=== PATIENT | female | born 1990 | race Caucasian/White ===

== ENCOUNTER 2020-05-18 14:19 | Day surgery (SDC) | payer MEDICAID, SELFPAY ==
[2020-05-18] VITALS (14 sets, daily range): BP systolic 107–127; BP diastolic 66–80; PULSE 67–95; RESP 14–18; TEMP 36.4–43; O2SAT 96–100; BMI 21.8
--- NOTE | 2020-05-18 14:22 | HMH.EDGENADL ---
ED Disposition Clinical Impression: Acute appendicitis Qualifiers: Acute appendicitis type: unspecified acute appendicitis type Qualified Code(s): K35.80 - Unspecified acute appendicitis Disposition: Admitted As Inpatient Condition on Discharge: Fair Referrals: Yun Wong PA [Primary Care Provider] - - Critical Care Critical Care Time: No Attestation: On , the high probability of a clinically significant, sudden or life threatening deterioration of the following system(s) required my full and direct attention, intervention and personal management. The time I documented below is in addition to time spent performing reported procedures but includes the following listed in this critical care notation. Medical Decision Making - Medical Records Medical records reviewed: Yes: I reviewed the patient's medical records. - Roman Inquiry Pt receiving controlled substance: No Vital Signs: 05/18/20 14:49 05/18/20 15:50 Temperature 98.2 F Temperature Source Oral Pulse Rate [Right Brachial] 67 79 Respiratory Rate 16 16 Blood Pressure [Right Arm] 116/77 110/66 Blood Pressure Mean [Right Arm] 90 80 Blood Pressure Source [Right Arm] Automatic Cuff Automatic Cuff Blood Pressure Position [Right Arm] Sitting Sitting 02 Sat by Pulse Oximetry 96 99 Oxygen Delivery Method Room Air - Lab Data Lab Results 05/18/20 14:30: Urine Color Yellow, Urine Appearance Sl cloudy, Urine pH 6.0, Ur Specific Thornwood >= 1.030, Urine Protein Negative, Urine Glucose (UA) Negative, Urine Ketones Negative, Urine Blood Negative, Urine Nitrate Negative, Urine Bilirubin Negative, Urine Urobilinogen 0.2, Ur Leukocyte Esterase Negative, Urine RBC Occasional, Urine WBC 3-5, Ur Squamous Epith Cells 10-20, Urine Bacteria 1+ 05/18/20 14:30: Urine HCG, Qual Negative 05/18/20 15:00: WBC 11.6 H, RBC 4.08 L, Hgb 12.6, Hct 38.8, MCV 95.0, MCH 30.9, MCHC 32.5, RDW 12.9, Plt Count 266, MPV 7.6, Neut % (Auto) 85.7 H, Lymph % (Auto) 8.8 L, Gonzales % (Auto) 4.5, Eos % (Auto) 0.8, Baso % (Auto) 0.2, Neut # (Auto) 10.0 H, Lymph # (Auto) 1.0, Gonzales # (Auto) 0.5, Eos # (Auto) 0.1, Baso # (Auto) 0.0, Total Counted 100, Neutrophils % (Manual) 90 H, Lymphocytes % (Manual) 7 L, Monocytes % (Manual) 3, Platelet Estimate Normal, RBC Morphology Normal 05/18/20 15:00: Sodium 139, Potassium 3.7, Chloride 108 H, Carbon Dioxide 25, Anion Gap 9.7, BUN 8, Creatinine 0.60, Estimated Creat Clear 131, Estimated GFR 119, Est GFR ( Amer) 144, Glucose 96, Calcium 9.0, Total Bilirubin 0.4, AST 17, ALT 12, Alkaline Phosphatase 78, C-Reactive Protein 5.8 H, Total Protein 6.8, Albumin 4.3, Globulin 2.5, Albumin/Globulin Ratio 1.7, Lipase 45 Result diagrams: 05/18/20 15:00 05/18/20 15:00 Orders (Tests/Meds): ED MEDICATIONS Discontinued Medications Generic Name Dose Route Start Last Admin Trade Name Freq PRN Reason Stop Dose Admin Ioversol 75 ml 05/18/20 15:22 05/18/20 15:24 Ioversol-350 (74%) 100ml Vial IV 05/18/20 15:23 75 ml ONCE ONE Administration Protocol Sodium Chloride 10 ml 05/18/20 15:22 05/18/20 15:24 Sodium Chloride 0.9% 10ml Syr (Rad Only) IV 05/18/20 15:23 10 ml ONCE ONE Administration Medical Decision Narrative: Patient is a 30-year-old female presenting with abdominal pain. Patient states this pain is different than the pain she is had with her endometriosis in the past. She had a normal last menstrual cycle just several days ago. At this time, differential diagnosis does include acute surgical process such as appendicitis versus kidney stone versus endometriosis versus hernia versus pyelonephritis. No hernias appreciated on exam. It is concerning the patient had a CT scan demonstrated what sounds like a dilated appendix earlier today. Lab work per patient was normal. At this time, shared decision making with patient about PT CT imaging performed and patient wishes to proceed with a CT understanding the radiation risk. I ag
--- NOTE | 2020-05-18 14:36 | PC.NURSE ---
Rad aware of orders
[2020-05-18 14:49] LABS: Microscopic, Urine URINE MICROSCOPIC (MICROSCOPIC)
[2020-05-18 14:51] LABS: Appearance,Urine SL CLOUDY (Clear); Blood, Urine Negative (Negative); Color,Urine YELLOW (Yellow); Glucose,Urine (UA) Negative (Negative); Ketones,Urine Negative (Negative); Leukocyte Esterase,Urine Negative (Negative); Nitrate,Urine Negative (Negative); Protein,Urine Negative (Negative); Specific Gravity, Urine >= 1.030 (1.005-1.030); Urobilinogen,Urine 0.2 EU/dl (0.2)
[2020-05-18 14:52] LABS: Urine Pregnancy, HCG Qual. Negative (Negative)
[2020-05-18 14:54] LABS: Bilirubin,Urine Negative (Negative)
--- NOTE | 2020-05-18 14:55 | PC.NURSE ---
rad notified of ct order on pt
[2020-05-18 15:01] LABS: Bacteria,Urine 1+ /lpf; RBC,Urine Occasional #/hpf (0-3)
--- NOTE | 2020-05-18 15:01 | CT_ITS ---
PROCEDURE: CT ABDOMEN PELVIS W CON CLINICAL INDICATION: abd pain Right lower quadrant pain COMPARISON: No exams were available for comparison TECHNIQUE: IV Contrast: 75ML OPTIRAY 350 Oral Contrast None Axial images obtained with sagittal and coronal reformats. All CT scans at the facility use one or more dose reduction, viz: automated exposure control, ma/kV adjustment per patient size (including targeted exams where dose is matched to indication, i.e. head), or iterative reconstruction technique. FINDINGS: There is a triangular shaped parenchymal opacity in the left major fissure inferiorly measuring approximately 1.5 x 1 cm possibly due to an area of scarring. This is incompletely imaged. Follow-up may confirm stability. The liver, spleen, adrenal glands, pancreas, and kidneys have an unremarkable appearance. No renal or ureteral calculi. No hydronephrosis. The appendix is thickened measuring 10 mm with mild thickening of the wall and mild stranding of the periappendiceal fat consistent with acute appendicitis. No abscess or free air is evident. There are bilateral ovarian cysts measuring up to 2 cm on the left. The uterus is somewhat prominent with heterogeneous enhancement. The uterus is anteflexed. There is a small amount of fluid in the cul-de-sac. No acute bony findings are evident. IMPRESSION: 1. The findings are compatible with acute appendicitis. No evidence of abscess or perforation. 2. Prominent anteverted pelvis with heterogeneous enhancement. Please correlate with physical exam and patient history. Has the patient had recent childbirth? Small amount of fluid is present in the cul-de-sac and there are bilateral ovarian cysts. 3. 1.5 cm parenchymal opacity overlying the left major fissure possibly due to scarring or an area of consolidation. Dictated by: Justin Sandoval MD 05/18/2020 15:52 Justin Sandoval MD in OV 05/18/2020 15:52
[2020-05-18 15:17] LABS: Basophils % 0.2 % (0.1-2.0); Eosinophils # 0.1 K/mm3 (0.0-0.4); Eosinophils % 0.8 % (0.1-12.0); Hematocrit 38.8 % (37.0-47.0); Hemoglobin 12.6 g/dL (12.2-16.2); Lymphocytes % 8.8 % (10-50); Mean Corpuscular HGB Conc 32.5 g/dL (31.8-35.4); Mean Corpuscular Hemoglobin 30.9 pg (27.0-31.2); Mean Platelet Volume 7.6 fl (7.4-10.4); Monocytes # 0.5 K/mm3 (0.1-1.0); Monocytes % 4.5 % (1.7-9.3); Neutrophils % 85.7 % (37.0-80.0); Platelet Count 266 K/mm3 (142-424); Red Blood Count 4.08 M/mm3 (4.20-5.40); Red Cell Distribution Width 12.9 % (11.5-17.5); White Blood Count 11.6 K/mm3 (4.8-10.8)
[2020-05-18 15:19] LABS: Chloride 108 mmol/L (98-107); Potassium 3.7 mmoL/L (3.5-5.1); Sodium 139 mmol/L (136-145)
[2020-05-18 15:21] LABS: Alanine Aminotransferase 12 U/L (12-78); Aspartate Amino Transferase 17 U/L (14-36); Blood Urea Nitrogen 8 mg/dl (7-17); Creatinine Clearance Estimated 131 mL/min (50-200); Estimated Glomerular Filt Rate 119 ml/min (>60); GFR (African American) 144 ML/MIN (>60)
[2020-05-18 15:22] LABS: Albumin Level 4.3 g/dl (3.5-5.0); Albumin/Globulin Ratio 1.7 (1.1-1.8); Alkaline Phosphatase 78 U/L (38-126); Anion Gap 9.7 mEq/L (5-15); Bilirubin,Total 0.4 mg/dl (0.2-1.3); Carbon Dioxide 25 mmol/L (22.0-30.0); Globulin 2.5 g/dL (1.3-3.2); Glucose 96 mg/dl (74-100); Lipase 45 U/L (23-300); Total Protein,Serum 6.8 g/dl (6.3-8.2)
--- NOTE | 2020-05-18 15:25 | PC.NURSE ---
pt with rad
[2020-05-18 15:27] LABS: C-Reactive Protein 5.8 mg/L (0-4)
[2020-05-18 15:39] LABS: MANUAL DIFFERENTIAL MANUAL DIFFERENTIAL (MANUAL DIFF)
[2020-05-18 15:41] LABS: Lymphocytes % 7 % (10-50); Monocytes % 3 % (2-9); Neutrophils % 90 % (42-76); Platelet Estimate Normal; RBC Morphology Normal; Total Cells Counted 100
--- NOTE | 2020-05-18 15:50 | PC.NURSE ---
talking with radiologist at this time
--- NOTE | 2020-05-18 15:56 | PC.NURSE ---
Called Dr Bay's office, spoke with BJ she said she would have Dr Bay called the ED.
--- NOTE | 2020-05-18 15:59 | PC.NURSE ---
Dr Bay speaking to ER at this time.
--- NOTE | 2020-05-18 16:02 | PC.NURSE ---
House aware of pt going to surgery.
[2020-05-18 16:49] LABS: Coronavirus 19 IgG Antibody Negative (Negative); Coronavirus 19 IgM Antibody Negative (Negative)
--- NOTE | 2020-05-18 17:57 | SUR.OPER ---
1757-family updated at this time
--- NOTE | 2020-05-18 18:23 | HMH.OPNOTE ---
Date of procedure: 05/18/20 Pre-op Diagnosis:: Acute appendicitis Post-op Diagnosis:: Acute appendicitis with focal suppurative changes Procedure performed:: Laparoscopic appendectomy Surgeon:: Seven Bay MD NURSING HOME ADMISSIONS DIRECTOR:: Oskar Marks Anesthesia: GETMiah Estimated blood loss (mL): 10 Operative findings:: Focal separative changes along mid appendix No sign of perforation Cloudy fluid within pelvis with no evidence of true abscess formation Operative note:: After informed consent was obtained the patient was taken to the operating room and placed in the supine position. General anesthesia was induced and her abdomen was prepped and draped in a sterile fashion. After infiltration local anesthetic an infraumbilical incision was made. A Veress needle was placed in position. The abdomen was insufflated. A 12 mm optical trocar was placed in position. Under direct visualization a 5 mm trocar was placed in the suprapubic position and an additional 5 mm trocar was placed in the left lower quadrant. Evaluation of the right lower quadrant revealed an inflamed appendix with focal suppurative changes along the midportion. Deep within the pelvis and and around the area of the uterus some cloudy fluid was noted. This fluid was evacuated. Thorough irrigation was completed. No definitive formed abscess was noted. The appendix was carefully elevated. Focal separative changes were noted along the mid appendix. No sign of perforation was seen. The mesoappendix was taken down with harmonic benjamín. An Endopath 45 stapling device was utilized to transect the appendix at its base. The staple margin appeared intact. No sign of bleeding or other complication noted. The appendix was placed in a retrieval bag and removed through the infraumbilical trocar site. The right lower quadrant was thoroughly irrigated. No active bleeding, sign of injury, or additional pockets of fluid were noted. Pneumoperitoneum was released as the trocars were removed. All wounds were irrigated. Fascia at the infraumbilical trocar site was reapproximated with 0 Ethibond and skin was then closed with 4-0 Monocryl in a subcuticular manner. Steri-Strips were applied. The patient's anesthetic agents were reversed and she was extubated prior to transfer to recovery. Condition: stable Disposition: PACU Specimens:: Appendix Complications:: No immediate
--- NOTE | 2020-05-18 18:28 | P.PN_ITS ---
[facility] Anesthesia Checklist - Patient Identification Patient Identification: Arm Band - Structural Data Admitted From: Emergency Dept Planned Operative Procedure/s: Laparoscopic Appendectomy Consent for Planned Operative Procedure(s) Verified: Yes Verified Documents: Surgical Consent, History and Physical - NPO Status Verified Time NPO: 09:00 - Additional verifications Anesthesia Reactions: No Hx Blood Transfusions: No - Airway Assessment C-Spine Mobility Assessed: Yes (mp2) TMJ Mobility Assessed: Yes Dentition: Good Dentition - Neurological Assessment Level of Consciousness: Awake, Alert - Anesthesia Plan Anesthesia Risk discussed: Yes Anesthesia Plan: Verified ASA Class: II (e) Anesthesia Type: General [facility] History I have reviewed the patient's past medical history: Yes Medical History: Reports:: Migraine Denies:: Diabetes Mellitus Type 1, Diabetes Mellitus Type 2, Seizures *Have you ever received a pneumonia vaccine?: No *Have you received a flu vaccine this season?: No Anesthesia experience/problems:: nac Other Surgeries: Yes: Dilation and Curettage, Diagnostic Lap Amputation: No Fractures: Yes - *Social History Smoking Status: Current every day smoker Tobacco Type: cigarettes # Packs/Day (cigarettes): 1 Alcohol Intake: never Substance Use Type: denies use *Occupational Status:: other *Travel in the last 8 weeks: None Family Hx:: No significant family history
--- NOTE | 2020-05-18 18:29 | HMH.ANESI ---
[facility] Anesthesia Record Part I Intake, IV Amount: 1,200 Estimated blood loss (mL): 10 Urine output (mL): 100 Blood Pressure: 121/69 SaO2: 99 Pulse Rate: 95 Respiratory Rate: 16 Temperature: 97.8 F Patient is:: Drowsy, Stable Stable to PACU at:: 18:20
--- NOTE | 2020-05-18 19:09 | PC.NURSE ---
1851-pt tranferred to post op at this time, vss, family at bedside, pt stable
--- NOTE | 2020-05-18 19:46 | HMH.ANESII ---
[facility] Anesthesia Record Part II Discharge Time: 18:50 Destination: Surgical Day Care (OP Surgery) PACU nurse assessment reviewed?: Yes Patient Condition:: Good Anesthesia Complications:: None Swallowing reflex intact?: Yes Cyanosis?: No Blood Pressure: 120/71 Pulse Rate: 85 Temperature: 97.6 F Mental Status: Alert & Oriented Pain level:: 0 Nausea and/or vomitting:: None Intake, IV Amount: 0
[2020-05-18 19:54] LABS: Microscopic,Cath URINE MICROSCOPIC (MICROSCOPIC)
[2020-05-18 19:56] LABS: Appearance,Urine/Cath CLEAR (Clear); Bilirubin,Cath Negative (Negative); Blood, Urine/Cath Negative (Negative); Color,Urine/Cath YELLOW (Yellow); Glucose,Urine/Cath (UA) Negative (Negative); Ketones,Urine/Cath 1+ (Negative); Leukocyte Esterase,Cath Negative (Negative); Nitrate,Cath Negative (Negative); PH,Urine/Cath 5.5 (5.0-8.5); Protein,Urine/Cath Negative (Negative); Urobilinogen,Cath 0.2 EU/dl (0.2)
== END 2020-05-18 19:46 | disposition home or self-care (01) ==
LOC: ER 05-19 12:55 → SDC 05-19 13:00
PROVIDERS: Emergency Provider Emergency Medicine; PCP Physician Assistant; Visit Provider Surgery
PROC: 0DTJ4ZZ Resection of Appendix, Percutaneous Endoscopic Approach (ICD-10-PCS; CPT 44970; principal; 2020-05-18 14:30)
DX: K35.80 Unspecified acute appendicitis (principal); N80.9 Endometriosis, unspecified; G43.709 Chronic migraine without aura, not intractable, without status migrainosus; Z01.84 Encounter for antibody response examination; Z87.42 Personal history of other diseases of the female genital tract; Z72.0 Tobacco use
CPT/HCPCS: 44970; 74177; 80053; 81001; 81025; 83690; 85007; 85025; 86140; 86328; 88304; 96374; 99284; J2405; J2710; Q9967

== ENCOUNTER → 2021-04-07 11:54 | Outpatient (CLI) | payer MEDICAID, SELFPAY | PROVIDERS: PCP Emergency Medicine; Visit Provider Emergency Medicine | DX: Z20.822 Contact with and (suspected) exposure to COVID-19 (principal) | CPT/HCPCS: U0003 ==

== ENCOUNTER 2021-08-01 19:59 | Emergency (ER) | payer MEDICAID, SELFPAY ==
[2021-08-01 21:08] VITALS: BP 131/93; PULSE 84; RESP 16; TEMP 36.9; O2SAT 98; BMI 20.1
[2021-08-01 21:34] LABS: UTC Strep Screen (Rapid) Positive (Negative)
--- NOTE | 2021-08-01 21:44 | HMH.EDUTC ---
[facility] [place] Clinical Impression: Strep [place] Disposition: Home, Self-Care Condition on Discharge: Good Instructions: Strep Throat, DI for Strep Throat Additional Instructions: Drink plenty of fluids. Take tylenol or ibuprofen for pain or fever. Follow up with your regular doctor. GO TO THE ER FOR ANY WORSENING SYMPTOMS Throw your tooth brush away and get a new one. I sent medications to your pharmacy, but the shots you got here should be enough to get you better. There is diflucan there in case the antibiotics give you a yeast infect. There is zofran there in case you have nausea/voming. There is cough syrup there if you need that. Prescriptions: Brompheniramine/Pseudoephed/Dm [Bromfed Dm Cough Syrup] 5 ml PO Q6HP PRN #240 ml PRN Reason: Cough Transmission Status: Received by [id number] Ondansetron [Zofran 4mg ODT] 4 mg PO Q8HP PRN #20 tab PRN Reason: Nausea Transmission Status: Received by [id number] predniSONE [Deltasone 10mg tablet] 10 mg PO BID 3 Days #6 tab Transmission Status: Received by [id number] Fluconazole [Diflucan 150mg tab] 150 mg PO ONCE #1 tab Transmission Status: Received by [id number] Azithromycin [Z-Miki 250mg Tab*] 250 mg PO UD DOSE PK #6 tab Transmission Status: Received by [id number] Referrals: Yun Wong PA [Primary Care Provider] - Forms: Work/School Release Time of Disposition: 22:16 Medical Decision Making - Medical Records Medical records reviewed: No: I reviewed the patient's medical records. - Roman Inquiry Pt receiving controlled substance: No Vital Signs: 08/01/21 21:08 08/01/21 22:13 Temperature 98.4 F 98.4 F Temperature Source Oral Pulse Rate 84 Pulse Rate [Left] 84 Respiratory Rate 16 16 Blood Pressure 131/93 H Blood Pressure [Right Arm] 131/93 H Blood Pressure Mean [Right Arm] 105 02 Sat by Pulse Oximetry 98 - Lab Data Lab results reviewed: Yes: I reviewed the patient's lab results. Lab Results 08/01/21 21:09: Strep Scn Rapid Clinic Positive A Orders (Tests/Meds): ED MEDICATIONS Discontinued Medications Generic Name Dose Route Start Last Admin Trade Name Armand PRN Reason Stop Dose Admin Methylprednisolone Sodium Succinate 125 mg 08/01/21 21:53 08/01/21 22:05 Methylprednisolone Sod Succ 125mg Vial IM 08/01/21 21:54 125 mg ONCE ONE Administration Penicillin G Benzathine 1,200,000 unit 08/01/21 21:53 08/01/21 22:05 Penicillin G Benzathine 1,200,000 Units/2ml Syringe IM 08/01/21 21:54 1,200,000 unit ONCE ONE Administration [facility] [place] - General Stated complaint: sore throat cough congestion Time Seen by Provider: 08/01/21 21:44 Mode of Arrival: Ambulatory Source of Information: Patient Limitations: No Limitations Description of Symptoms (Recalled from Triage Doc. by RN): pt c/o a cough (x1mo), sore throat, and nasal drainage/congestion. pt tested negative for covid yesterday. HEENT Symptoms (Recalled from RN notes): Yes (sore throat and nasal drainage/congestion) Resp Symptoms (Recalled from RN notes): Yes (cough) Skin Symptoms (Recalled from RN notes): No MS Symptoms (Recalled from RN notes): No Functional Status (Recalled from RN notes): wnl - History of Present Illness Provider Complaint: She c/o sore throat and a cough for the past 3 days. She has had chilling and body aches too. 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 She had a negative covid test yesterday. She has been fully vaccinated against covid-19 also. - Related Data Home Medications Medication Instructions Recorded Confirmed SUMAtriptan succinate [Sumatriptan 25 mg PO QHS 05/18/20 08/22/20 Succinate] Previous Rx's Medication Instructions Recorded azithromycin 250 mg tablet See Rx Instructions PO .COMPLEX #6 08/22/20 tab methylprednisolone 4 mg tablets in See Rx Instructions PO PER PKG DIR 08/22/20 a dose pack #21 tab promethazine-DM 6.25
[2021-08-01 22:13] VITALS: BP 131/93; PULSE 84; RESP 16; TEMP 36.9
== END 2021-08-01 22:20 | disposition home or self-care (01) ==
PROVIDERS: Emergency Provider Nurse Practitioner Family; PCP Physician Assistant
DX: J02.0 Streptococcal pharyngitis (principal); F17.210 Nicotine dependence, cigarettes, uncomplicated
CPT/HCPCS: 87880; 96372; 99202; G0463; J0561

== ENCOUNTER 2021-08-09 11:59 | Emergency (ER) | payer MEDICAID, SELFPAY ==
[2021-08-09 13:29] VITALS: BP 109/67; PULSE 102; RESP 18; TEMP 36.6; O2SAT 98; BMI 20.1
--- NOTE | 2021-08-09 13:52 | HMH.EDUTC ---
[facility] [place] Clinical Impression: Strep throat Disposition: Home, Self-Care Condition on Discharge: Good Instructions: How stressed are you?, DI for Depression -- Adult, Bupropion, DI for Strep Throat Additional Instructions: Drink plenty of fluids. Take tylenol or ibuprofen for pain or fever. Take the medications as directed. Follow up with your regular doctor. GO TO THE ER FOR ANY WORSENING SYMPTOMS Throw your tooth brush away and get a new one. If the wellbutrin (buproprion) makes you feel worse instead of better, stop it and follow up with your primary care provider. If you have any suicidal ideations stop the wellbutrin and go to the ER. Prescriptions: Brompheniramine/Pseudoephed/Dm [Bromfed Dm Cough Syrup] 5 ml PO Q6HP PRN #240 ml PRN Reason: Cough Transmission Status: [id number] buPROPion HCL [Wellbutrin XL] 150 mg PO DAILY #30 tab Transmission Status: [id number] Azithromycin [Z-Miki 250mg Tab*] 250 mg PO UD DOSE PK #6 tab Transmission Status: [id number] Referrals: Yun Wong PA [Primary Care Provider] - Forms: Work/School Release Time of Disposition: 14:45 Medical Decision Making - Medical Records Medical records reviewed: No: I reviewed the patient's medical records. - Roman Inquiry Pt receiving controlled substance: No Vital Signs: 08/09/21 13:29 08/09/21 14:11 Temperature 98 F 98 F Temperature Source Oral Pulse Rate 102 H Pulse Rate [Left] 102 H Respiratory Rate 18 18 Blood Pressure 109/67 L Blood Pressure [Right Arm] 109/67 L Blood Pressure Mean [Right Arm] 81 02 Sat by Pulse Oximetry 98 - Lab Data Lab results reviewed: Yes: I reviewed the patient's lab results. Lab Results 08/09/21 13:44: Strep Scn Rapid Clinic Positive A [facility] [place] - General Stated complaint: cough,runny nose Time Seen by Provider: 08/09/21 13:52 Mode of Arrival: Ambulatory Source of Information: Patient Limitations: No Limitations Description of Symptoms (Recalled from Triage Doc. by RN): pt c/o a cough and nasal drainage x1mo. pt also c/o anxiety and depression and wants to see if we can put her on something. HEENT Symptoms (Recalled from RN notes): Yes (nasal drainage) Resp Symptoms (Recalled from RN notes): Yes (cough) Skin Symptoms (Recalled from RN notes): No MS Symptoms (Recalled from RN notes): No Functional Status (Recalled from RN notes): wnl - History of Present Illness Provider Complaint: She states that she was diagnosed with strep throat last week. She had a bicilllin la im injection last week for strep throat. She states that after the shot her sore throat did get better. But she has continued to cough and she still doesn't feel as good as normal. She has also been having issues with depression. She states that she has lost interest in most of the things that she used to like to do. She states that she feels overwhelmed because she works a hard job and she is a single parent. She does not have as much energy as she used to. She wants to sleep a lot more than she normally would. She denies any SI or HI. In the past she was treated with cymbalta for post- depresssion and it did seem like it worked some, but then when she felt better she stopped it. - Related Data Home Medications Medication Instructions Recorded Confirmed SUMAtriptan succinate [Sumatriptan 25 mg PO QHS 05/18/20 08/22/20 Succinate] Previous Rx's Medication Instructions Recorded azithromycin 250 mg tablet See Rx Instructions PO .COMPLEX #6 08/22/20 tab methylprednisolone 4 mg tablets in See Rx Instructions PO PER PKG DIR 08/22/20 a dose pack #21 tab promethazine-DM 6.25 mg-15 mg/5 mL 5 ml PO Q6H PRN #180 ml 08/23/20 oral syrup omeprazole 40 mg capsule,delayed See Rx Instructions .ROUTE 10/10/20 release .COMPLEX #90 cap tnvjsduofxtijyb-abrnjnfkgliisjw-KU 5 ml PO Q6H PRN #180 ml 10/18/20 2 mg-30 m
[2021-08-09 13:53] LABS: UTC Strep Screen (Rapid) Positive (Negative)
[2021-08-09 14:11] VITALS: BP 109/67; PULSE 102; RESP 18; TEMP 36.6
== END 2021-08-09 15:02 | disposition home or self-care (01) ==
PROVIDERS: Emergency Provider Nurse Practitioner Family; PCP Physician Assistant
DX: J02.0 Streptococcal pharyngitis (principal); F41.8 Other specified anxiety disorders; G43.709 Chronic migraine without aura, not intractable, without status migrainosus; F17.210 Nicotine dependence, cigarettes, uncomplicated; Z79.899 Other long term (current) drug therapy
CPT/HCPCS: 87880; 99202; G0463

== ENCOUNTER → 2022-03-27 15:18 | Outpatient (CLI) | payer MEDICAID, SELFPAY | PROVIDERS: PCP Physician Assistant; Visit Provider Physician Assistant | DX: J02.9 Acute pharyngitis, unspecified (principal) ==

== ENCOUNTER → 2022-06-05 13:38 | Outpatient (CLI) | payer MEDICAID, SELFPAY ==
[2022-06-05 12:17] LABS: Eosinophils # 0.1 K/mm3 (0.0-0.4); Eosinophils % 2.3 % (0.1-12.0); Hematocrit 38.3 % (37.0-47.0); Hemoglobin 12.7 g/dL (12.2-16.2); Lymphocytes # 0.9 K/mm3 (0.7-4.5); Lymphocytes % 21.1 % (10-50); Mean Corpuscular HGB Conc 33.1 g/dL (31.8-35.4); Mean Corpuscular Volume 90.6 fl (81-99); Mean Platelet Volume 8.2 fl (7.4-10.4); Monocytes # 0.3 K/mm3 (0.1-1.0); Monocytes % 6.1 % (1.7-9.3); Neutrophils # 2.9 K/mm3 (1.8-7.8); Neutrophils % 69.5 % (37.0-80.0); Platelet Count 343 K/mm3 (142-424); Red Blood Count 4.23 M/mm3 (4.20-5.40); Red Cell Distribution Width 16.2 % (11.5-17.5); White Blood Count 4.1 K/mm3 (4.8-10.8)
[2022-06-05 13:28] LABS: Alanine Aminotransferase 20 U/L (12-78); Albumin Level 4.8 g/dl (3.5-5.0); Albumin/Globulin Ratio 2.1 (1.1-1.8); Alkaline Phosphatase 91 U/L (38-126); Anion Gap 16.7 mEq/L (5-15); Aspartate Amino Transferase 29 U/L (14-36); Bilirubin,Total 0.3 mg/dl (0.2-1.3); Blood Urea Nitrogen 13 mg/dl (7-17); Calcium 9.5 mg/dl (8.4-10.2); Carbon Dioxide 24 mmol/L (22.0-30.0); Chloride 104 mmol/L (98-107); Cholesterol 165 mg/dl (140-200); Estimated Glomerular Filt Rate 84 ml/min (>60); GFR (African American) 102 ML/MIN (>60); Globulin 2.3 g/dL (1.3-3.2); Glucose 100 mg/dl (74-100); HDL Cholesterol 55 mg/dl (40-60); Potassium 3.7 mmoL/L (3.5-5.1); Sodium 141 mmol/L (136-145); Total Protein,Serum 7.1 g/dl (6.3-8.2); Triglycerides 167 mg/dl (30-150); VLDL Cholesterol 33 mg/dL (0-40)
[2022-06-05 13:39] LABS: Direct LDL Cholesterol 73.87 mg/dL (100-129)
[2022-06-05 13:46] LABS: 25-OH Vitamin D, Total 36.6 ng/mL (30-100)
[2022-06-05 13:58] LABS: Thyroid Stimulating Hormone 2.46 uIU/mL (0.465-4.68)
== END ==
PROVIDERS: PCP Student in an Organized Health Care Education/Training Program; Visit Provider Student in an Organized Health Care Education/Training Program
DX: G43.909 Migraine, unspecified, not intractable, without status migrainosus (principal); E55.9 Vitamin D deficiency, unspecified
CPT/HCPCS: 80053; 80061; 82306; 84443; 85025

== ENCOUNTER → 2022-07-05 16:29 | Outpatient (CLI) | payer MEDICAID, SELFPAY ==
[2022-07-21 21:30] LABS: HIV Screen 4th Generation wRfx Non Reactive; Hep A Ab, IgM Negative; Hepatitis B Core Antibody IgM Negative; Hepatitis B Surface Antigen Negative; Hepatitis C Antibody <0.1; Rapid Plasma Reagin Ab Titer Non Reactive
== END ==
PROVIDERS: PCP Physician Assistant; Visit Provider Obstetrics & Gynecology
DX: Z20.2 Contact with and (suspected) exposure to infections with a predominantly sexual mode of transmission (principal); Z11.4 Encounter for screening for human immunodeficiency virus [HIV]
CPT/HCPCS: 36415; 80074; 86592; 86703; G0432

== ENCOUNTER 2022-08-20 12:09 | Outpatient (CLI) | payer MEDICAID, SELFPAY ==
[2022-08-20 12:32] VITALS: BP 118/71; PULSE 80; RESP 18; O2SAT 99
== END 2022-08-20 12:45 | disposition home or self-care (01) ==
LOC: INF 12:10
PROVIDERS: PCP Physician Assistant; Visit Provider Obstetrics & Gynecology
DX: A54.9 Gonococcal infection, unspecified (principal)
CPT/HCPCS: 96372; J0696

== ENCOUNTER → 2022-08-29 09:22 | Outpatient (CLI) | payer MEDICAID, SELFPAY ==
[2022-08-29 15:58] LABS: Basophils # 0.1 K/mm3 (0-0.2); Basophils % 1.2 % (0.1-2.0); Eosinophils # 0.1 K/mm3 (0.0-0.4); Eosinophils % 3.3 % (0.1-12.0); Hematocrit 43.7 % (37.0-47.0); Hemoglobin 14.2 g/dL (12.2-16.2); Lymphocytes # 1.4 K/mm3 (0.7-4.5); Lymphocytes % 31.7 % (10-50); Mean Corpuscular HGB Conc 32.5 g/dL (31.8-35.4); Mean Corpuscular Hemoglobin 29.4 pg (27.0-31.2); Mean Corpuscular Volume 90.6 fl (81-99); Mean Platelet Volume 9.2 fl (7.4-10.4); Monocytes # 0.2 K/mm3 (0.1-1.0); Monocytes % 4.3 % (1.7-9.3); Neutrophils # 2.5 K/mm3 (1.8-7.8); Neutrophils % 59.5 % (37.0-80.0); Platelet Count 323 K/mm3 (142-424); Red Blood Count 4.82 M/mm3 (4.20-5.40); Red Cell Distribution Width 15.1 % (11.5-17.5); White Blood Count 4.3 K/mm3 (4.8-10.8)
[2022-08-29 16:02] LABS: Alanine Aminotransferase 16 U/L (12-78); Albumin Level 4.8 g/dl (3.5-5.0); Albumin/Globulin Ratio 1.9 (1.1-1.8); Alkaline Phosphatase 58 U/L (38-126); Anion Gap 11.6 mEq/L (5-15); Aspartate Amino Transferase 25 U/L (14-36); Bilirubin,Total 0.3 mg/dl (0.2-1.3); Blood Urea Nitrogen 11 mg/dl (7-17); Calcium 9.2 mg/dl (8.4-10.2); Carbon Dioxide 21 mmol/L (22.0-30.0); Chloride 112 mmol/L (98-107); Estimated Glomerular Filt Rate 98 ml/min (>60); GFR (African American) 119 ML/MIN (>60); Globulin 2.5 g/dL (1.3-3.2); Glucose 82 mg/dl (74-100); Potassium 4.6 mmoL/L (3.5-5.1); Sodium 140 mmol/L (136-145); Total Protein,Serum 7.3 g/dl (6.3-8.2)
[2022-08-29 16:33] LABS: Thyroid Stimulating Hormone 1.35 uIU/mL (0.465-4.68)
[2022-08-29 16:37] LABS: C-Reactive Protein < 0.3 mg/L (0-4)
[2022-08-29 16:45] LABS: Erythrocyte Sedimentation Rate 13 mm/hr (0-20)
[2022-08-29 16:52] LABS: Vitamin B12 328 pg/mL (239-931)
[2022-08-31 11:33] LABS: RA Latex Turbid. <10.0 IU/mL (<14.0)
[2022-08-31 15:04] LABS: Anti-Centromere B Antibodies <0.2 AI (0.0-0.9); Anti-Cyclic Citrullinated Pept 1 units (0-19); Anti-DNA (DS) Ab Qn <1 IU/mL (0-9); Anti-Jo-1 <0.2 AI (0.0-0.9); Anti-Smith Antibody <0.2 AI (0.0-0.9); Antichromatin Antibodies 1.3 AI (0.0-0.9); Antiscleroderma-70 Antibodies <0.2 AI (0.0-0.9); RNP Antibodies <0.2 AI (0.0-0.9); Sjogren's Anti-SS-A <0.2 AI (0.0-0.9); Sjogren's Anti-SS-B <0.2 AI (0.0-0.9)
== END ==
PROVIDERS: PCP Physician Assistant; Visit Provider Physician Assistant
DX: M25.50 Pain in unspecified joint (principal)
CPT/HCPCS: 80053; 82306; 82607; 83735; 84443; 85025; 85651; 86140; 86200; 86225; 86235; 86431

== ENCOUNTER → 2022-09-05 11:18 | Outpatient (CLI) | payer MEDICAID, SELFPAY ==
[2022-09-05 13:40] LABS: Microalbumin/Creatinine Ratio 19.5
[2022-09-05 13:42] LABS: Creatinine,Urine Random 118 mg/dL (Not Estab.)
[2022-09-06 12:11] LABS: Complement C3 109 mg/dL (82-167)
[2022-09-06 13:42] LABS: Anti-DNA (DS) Ab Qn <1 IU/mL (0-9); Antichromatin Antibodies 1.1 AI (0.0-0.9); RA Latex Turbid. <10.0 IU/mL (<14.0); RNP Antibodies <0.2 AI (0.0-0.9); Sjogren's Anti-SS-A <0.2 AI (0.0-0.9); Sjogren's Anti-SS-B <0.2 AI (0.0-0.9)
[2022-09-06 14:13] LABS: Albumin 4.1 g/dL (2.9-4.4); Alpha-1-Globulin 0.3 g/dL (0.0-0.4); Alpha-2-Globulin 0.8 g/dL (0.4-1.0); Gamma Globulin 0.8 g/dL (0.4-1.8)
[2022-09-06 18:05] LABS: Anti-Cardio Antibody IgM <9 MPL U/mL (0-12); Anti-Cardiolipin Antibody IgG <9 GPL U/mL (0-14); Anticardiolipin Ab,IgA,Qn <9 APL U/mL (0-11)
== END ==
PROVIDERS: PCP Physician Assistant; Visit Provider Physician Assistant
DX: M25.50 Pain in unspecified joint (principal); A54.9 Gonococcal infection, unspecified
CPT/HCPCS: 36415; 82043; 82570; 84155; 84165; 86147; 86161; 86225; 86235; 86431

== ENCOUNTER → 2022-10-09 09:41 | Outpatient (CLI) | payer MEDICAID, SELFPAY ==
[2022-10-09 13:31] LABS: Iron 54 ug/dL (37-170)
[2022-10-09 13:39] LABS: Total Iron Binding Capacity 445 ug/dL (265-497)
[2022-10-09 14:05] LABS: Ferritin 5.82 ng/ml (6.24-137)
[2022-10-09 14:29] LABS: Vitamin B12 441 pg/mL (239-931)
== END ==
PROVIDERS: PCP Physician Assistant; Visit Provider Physician Assistant
DX: G25.81 Restless legs syndrome (principal)
CPT/HCPCS: 82607; 82728; 83540; 83550

== ENCOUNTER → 2022-10-16 11:45 | Outpatient (CLI) | payer MEDICAID, SELFPAY | PROVIDERS: PCP Physician Assistant; Visit Provider Physician Assistant | DX: F17.200 Nicotine dependence, unspecified, uncomplicated (principal); G25.81 Restless legs syndrome; M79.606 Pain in leg, unspecified ==

== ENCOUNTER → 2022-10-17 13:44 | Outpatient (CLI) | payer MEDICAID, SELFPAY ==
--- NOTE | 2022-10-17 13:44 | US_ITS ---
FINAL REPORT CLINICAL HISTORY: Lower Abdominal pain, Pelvic pain history of endometriosis COMPARISON: None FINDINGS: Transvaginal sonographic images of the pelvis were obtained. The uterus measures 8.5 x 4.1 x 6.7 cm. There is a small amount of free fluid. The endometrium measures 9 mm, which is within normal limits. The endometrium is somewhat lobulated on some views of uncertain significance. No uterine mass is identified. The ovaries are normal with small cysts/follicles. There is a small amount of fluid in the cul-de-sac which may be physiologic or reactive. IMPRESSION: Somewhat lobulated endometrium, of uncertain significance. Small amount of free fluid. Reviewed, Interpreted and Dictated by Alin Hudson III, MD Transcribed by Melissa Alvarez Authenticated and [facility]
== END ==
PROVIDERS: PCP Physician Assistant; Visit Provider Obstetrics & Gynecology
DX: R10.2 Pelvic and perineal pain (principal); R10.30 Lower abdominal pain, unspecified
CPT/HCPCS: 76830

== ENCOUNTER → 2023-01-28 15:15 | Outpatient (CLI) | payer MEDICAID, SELFPAY ==
[2023-01-28 19:40] LABS: HCG,Quantitative < 2 mIU/ml (0-5.42)
[2023-01-30 10:45] LABS: Progesterone 14.9 ng/mL (.)
== END ==
PROVIDERS: PCP Physician Assistant; Visit Provider Obstetrics & Gynecology
DX: R10.2 Pelvic and perineal pain (principal)
CPT/HCPCS: 36415; 84144; 84702

== ENCOUNTER → 2023-02-02 13:42 | Outpatient (CLI) | payer MEDICAID, SELFPAY ==
[2023-02-02 14:36] LABS: HCG,Quantitative 40 mIU/ml (0-5.42)
== END ==
PROVIDERS: PCP Physician Assistant; Visit Provider Obstetrics & Gynecology
DX: Z32.01 Encounter for pregnancy test, result positive (principal)
CPT/HCPCS: 84702

== ENCOUNTER → 2023-02-05 11:11 | Outpatient (CLI) | payer MEDICAID, SELFPAY ==
[2023-02-05 12:49] LABS: HCG,Quantitative 189 mIU/ml (0-5.42)
== END ==
PROVIDERS: PCP Physician Assistant; Visit Provider Obstetrics & Gynecology
DX: Z34.91 Encounter for supervision of normal pregnancy, unspecified, first trimester (principal)
CPT/HCPCS: 36415; 84702

== ENCOUNTER → 2023-02-18 11:32 | Outpatient (CLI) | payer MEDICAID, SELFPAY ==
[2023-02-18 11:58] LABS: Microscopic, Urine URINE MICROSCOPIC (MICROSCOPIC)
[2023-02-18 12:02] LABS: Appearance,Urine SL CLOUDY (Clear); Bilirubin,Urine Negative (Negative); Blood, Urine Negative (Negative); Color,Urine YELLOW (Yellow); Glucose,Urine (UA) Negative (Negative); Ketones,Urine Negative (Negative); Leukocyte Esterase,Urine Negative (Negative); Nitrate,Urine Negative (Negative); Protein,Urine Negative (Negative); Specific Gravity, Urine 1.025 (1.005-1.030)
[2023-02-18 12:15] LABS: Bacteria,Urine 1+ /lpf; RBC,Urine Occasional #/hpf (0-3); Squamous Epithelial Cell,Urine Occasional #/hpf (0-5); WBC,Urine Occasional #/hpf (0-3)
== END ==
PROVIDERS: PCP Physician Assistant; Visit Provider Nurse Practitioner Obstetrics & Gynecology
DX: M54.50 Low back pain, unspecified (principal)
CPT/HCPCS: 81001

== ENCOUNTER → 2023-03-08 12:09 | Outpatient (CLI) | payer MEDICAID, SELFPAY ==
[2023-03-08 12:32] LABS: Basophils % 0.5 % (0.1-2.0); Eosinophils # 0.1 K/mm3 (0.0-0.4); Eosinophils % 2.6 % (0.1-12.0); Hematocrit 38.6 % (37.0-47.0); Hemoglobin 12.5 g/dL (12.2-16.2); Lymphocytes # 1.5 K/mm3 (0.7-4.5); Lymphocytes % 27.5 % (10-50); Mean Corpuscular HGB Conc 32.4 g/dL (31.8-35.4); Mean Corpuscular Hemoglobin 29.6 pg (27.0-31.2); Mean Corpuscular Volume 91.3 fl (81-99); Monocytes # 0.3 K/mm3 (0.1-1.0); Neutrophils # 3.4 K/mm3 (1.8-7.8); Neutrophils % 64.4 % (37.0-80.0); Platelet Count 283 K/mm3 (142-424); Red Blood Count 4.22 M/mm3 (4.20-5.40); White Blood Count 5.3 K/mm3 (4.8-10.8)
[2023-03-09 10:19] LABS: Rapid Plasma Reagin Ab Titer Non Reactive (NonRea<1:1)
[2023-03-23 11:59] LABS: Hepatitis C Antibody NON REACTIVE
[2023-03-28 09:18] LABS: HIV Screen 4th Generation wRfx Non Reactive
[2023-03-28 09:19] LABS: Hepatitis B Surface Antigen Negative
== END ==
LOC: LAB 12:10
PROVIDERS: PCP Physician Assistant; Visit Provider Obstetrics & Gynecology
DX: Z34.91 Encounter for supervision of normal pregnancy, unspecified, first trimester (principal); Z3A.08 8 weeks gestation of pregnancy
CPT/HCPCS: 36415; 85025; 86593; 86703; 86762; 86850; 87086; 87340; 87380; G0432

== ENCOUNTER 2025-02-18 13:47 | Outpatient (CLI) | payer MEDICAID, SELFPAY ==
--- OUTSIDE RECORDS SUMMARY | 2025-02-19 10:56 | XMS_ITS | Encounter Summary ---
Author Organization [employer] ([place], [place], [place], [place]) Address [address] [place] [address] Care Team Providers Care Software Asset Management Analyst Name Role Phone Unavailable Primary Care Provider Unavailabl e Encounter Details Date Type Department Care Team (Late st Contact Info) Description 09/19/2019 Transcribed Document [facility] [place] Family Medicine [facility] [place] [address] ProviderHa MD [address] [place] [id number] Social History Tobacco Use Types Packs/Day Years Used Date Smoking Tobacco: Never Assessed Comments Unknown Sex and Gender Information Value Date Recorded Sex Assigned at Female 01/30/2022 6:43 PM CDT Legal Sex Female 6:43 PM CDT Gender Identity Female 01/30/2022 6:43 PM CDT Sexual Orientation Not on file documented as of this encounter Miscellaneous Notes * [employer] Conversion Note - Ha ProviderMD - 09/19/2019 12:27 PM 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 COACH Nursing Discharge Summary Entered On: 09/19/2019 12:27 EST Performed On: 09/19/2019 12:27 EST by Liza Gardner RN Discharge Documentation Discharge Date/Time : 09/19/2019 12:15 EST Patient Disposition, General : Discharge Discharge To : Home with ambulatory/outpatient follow-up Mode Of Departure, General Discharge : Private vehicle Accompanied By, Discharge : Significant other IV Discontinued : Yes Personal Belongings With Patient : Yes Patient Education Completed : Yes Teaching Method : Explanation, Printed materials Teaching Evaluation : Verbalizes understanding Liza Gardner RN - 09/19/2019 12:27 EST Electronically signed by Dina [facility] Conversion Contract Agent [employer] at 11/19/2022 12:31 PM CDT documented in this encounter Plan of Treatment Not on file documented as of this encounter Visit Diagnoses Not on filedocumented in this encounter
--- OUTSIDE RECORDS SUMMARY | 2025-02-19 10:56 | XMS_ITS | Encounter Summary ---
Author Organization [employer] ([place], [place], [place], [place]) Address [address] [place] [address] Care Team Providers Care Booking Officer Name Role Phone Unavailable Primary Care Provider Unavailabl e Encounter Details Date Type Department Care Team (Late st Contact Info) Description 01/17/2022 Transcribed Document [facility] [place] [facility] [place] [address] ProviderHa MD [address] [place] [address] [id number] Social History Tobacco Use Types Packs/Day Years Used Date Smoking Tobacco: Never Assessed Comments Unknown Sex and Gender Information Value Date Recorded Sex Assigned at Female 01/30/2022 6:43 PM CDT Legal Sex Female 6:43 PM CDT Gender Identity Female 01/30/2022 6:43 PM CDT Sexual Orientation Not on file documented as of this encounter Miscellaneous Notes * Cerner Conversion Note - Historical ProviderMD - 01/17/2022 8:00 PM CDT Admission Data, OB Entered On: 01/17/2022 20:02 EDT Performed On: 01/17/2022 20:00 EDT by ANEUDY PEREZ RN Advance Directive Patient has Advance Directive *Q : No, patient refuses Advance Directive information ANEUDY PEREZ RN - 01/17/2022 20:00 EDT Height and Weight Height Source : Stated Height Entry Format : [place] Height, Feet : 5 ft(Converted to: 152 cm, 60 Inch) Clinical Height : 167.64 cm Height, Inches : 6 Inch(Converted to: 0 ft 6 Inch, 15.24 cm) Weight Source : Standing scale Weight Entry Format : [place] Weight, Pounds : 144 lb Clinical Dosing Weight : 65.45 kg Body Surface Area (BSA) : 1.74 m2 Body Mass Index : 23.3 kg/m2 [place] Body Weight (IBW) : 58.88 kg ANEUDY PEREZ RN - 01/17/2022 20:00 EDT Health Histories Smoking Status : 10 or more cigarettes (1/2 pack or more)/day in last 30 days Smokeless Tobacco Status : Smokeless tobacco user within last 30 days Desires Tobacco Cessation Medication : No Reason for No Tobacco Cessation Medication : Refuses FDA approved medications ANEUDY PEREZ RN - 01/17/2022 20:00 EDT Social History (As Of: 01/17/2022 20:02:48 EDT) Tobacco: Use in Last 12 Months: Cigarettes. Smoking Status Current every day smoker. Years of Use: 4. Packs/Tins Daily: .25. (Last Updated: 12/12/2014 12:06:18 EDT by ALEX IRAHETA RN) Alcohol: Alcohol Use Frequency Socially. (Last Updated: 09/19/2016 13:01:23 EST by RIVKA LONG RN) Influenza Vaccine Asmt, Adult Previous Vaccines from Immunization Schedule : No qualifying data available. Influenza Immunization, Current Season : Outside of influenza season ANEUDY PEREZ RN - 01/17/2022 20:00 EDT Pneumococcal Vaccine Previous Vaccines from Immunization Schedule : No qualifying data available. Pneumonia Immunization Received : Yes ANEUDY PEREZ RN - 01/17/2022 20:00 EDT Order Details Transport Mode Order Detail : Ambulatory Isolation Precautions Order Detail : Standard Precautions Order Detail : 1 IV Order Detail : 0 Oxygen Order Detail : 0 Nurse Collect Order Detail : 0 Lift/Transfer : Independent Central Line Order Detail : No Room Service : Appropriate Arterial Line : No Patient Needs Meds Crushed/Liquid : No ANEUDY PEREZ RN - 01/17/2022 20:00 EDT Vital Measurements Temperature Source : Oral Temperature, Fahrenheit : 98.0 Deg F Clinical Temperature, C : 36.7 Deg C Peripheral Pulse Rate : 99 bpm Respiratory Rate : 18 Breaths/Min Systolic Blood Pressure : 124 mmHg Diastolic Blood Pressure : 70 mmHg ANEUDY PEREZ RN - 01/17/2022 20:00 EDT Infectious Disease History Does patient have symptoms of COVID-19? : No Tested for COVID19 in the past 14 days : No, Patient stated Does the Patient state known exposure to a COVID-19 positive case in the last 14 days? : No Patient Vaccinated for COVID-19 : Fully vaccinated ANEUDY PEREZ RN - 01/17/2022 20:00 EDT Infectious Disease Risk Screening Grid Cough < 2 wks of unknown origin : NO Cough > 2 weeks : NO Blood in Sputum : NO Fever or self-reported Fever : NO Rash of unknown origin : NO Headache : NO Stiff neck : NO Night Sweats : NO Unexplained Weight Loss : NO Diarrhea (3 episode per day) : NO ANEUDY PEREZ RN - 01/17/2022 20:00 EDT Physical contact outside [place] in the last 30 days : No Hospitalized in Foreign Country : No Infectious Disease History : None, Chicken pox/Shingles, Influenza INF Disease TB Screening Calc : 0 INF Disease Recent Travel Calc : 0 ANEUDY PEREZ RN - 01/17/2022 20:00 EDT [place] Suicide Severity Rating Scale (C-SSRS) CSSRS Past Month Wish to be : No CSSRS Past Month Suicidal Thoughts : No CSSRS Lifetime Suicide Behavior : No Suicide Severity Rating Score : 0 Suicide Severity Rating : No Additional Care Required at this time ANEUDY PEREZ RN - 01/17/2022 20:00 EDT documented in this encounter Plan of Treatment Not on file documented as of this encounter Visit Diagnoses Not on filedocumented in this encounter
--- OUTSIDE RECORDS SUMMARY | 2025-02-19 10:56 | XMS_ITS | Encounter Summary ---
Author Organization Healthcare Address [address] [place] [address] Care Team Providers Care Coat Feller Name Role Phone Pavel Horvath MD Primary Care Provider [phone] Encounter Details Date Type Department Care Team (Late st Contact Info) Description 09/30/2023 Lab Requisition [facility] Lab [address] [place] [address] Anette Crow MD [facility] [place] [address] Encounter for general adult medical examination without abnormal findings Social History Tobacco Use Types Packs/Day Years Used Date Smoking Tobacco: Every Day Cigarettes Smokeless Tobacco: Current Comments:currently vaping Alcohol Use Standard Drinks/Week Comments Never 0 (1 standard drink = 0.6 oz pur e alcohol) PHQ-2 Answer Date Recorded Patient Health Questionnaire-2 Score 0 09/18/2022 [place] Depression Scale Answer Date Recorded [place] Depression Scale Total 20 02/23/2022 The thought of harming myself has occurred to me . Never 02/23/2022 CAGE ASSESSMENT Answer Date Recorded Cage unable to access Not on file 01/18/2022 Cage max number of drinks Not on file 2021 Cage Beverages a week Not on file 01/18/2022 Have you ever felt you should CUT down on your d rinking? 0 01/18/2022 Have you been ANNOYED by people criticizing your drinking? 0 01/18/2022 Have you felt GUILTY about your drinking? 0 01/18/2022 Have you had a drink first t janusz in the morning (EYE-STONE MILL OPERATOR) to steady your nerves or to get rid of a hangover? 0 01/18/2022 CAGE Questionnaire Score 0 022 PHQ-2A Answer Date Recorded Patient Health Questionnaire-2 Score 0 09/18/2022 Comments Unknown Sex and Gender Information Value Date Recorded Sex Assigned at Not on file Legal Sex Female 8:28 PM EDT Gender Identity Not on file Sexual Orientation Not on file documented as of this encounter Plan of Treatment Not on file documented as of this encounter Procedures Procedure Name Priority Date/Time Associated Diagnosis Comments ADDITIONAL SUSCEPTIBILITIES AND/OR IDENTIFICATION Routine 09/25/2023 7:35 PM EST Encounter for general adult medical examination without abnormal findings documented in this encounter Results * (ABNORMAL) Additional Susceptibilities and/or Identification (09/25/2023 7:35 PM EST) Culture Peptoniphilus harei group(A) 09/30/2023 1:37 PM EST [facility] Comment:This isolate has bee n identified using the FDA Approved MALDI [id number] CA System Blood 09/25/2023 7:35 PM EST 09/30/2023 10:14 AM EST us Anette Crow MD LAB MICROBIOLOGY - [facility] TITUS ETIENNE Final Result Performing Organization Address City/State/[facility] Co de Phone Number HEALTHCARE LAB [address] [place] [address] documented in this encounter Visit Diagnoses Diagnosis Encounter for general adult medical examination without abnormal findings documented in this encounter Additional Health Concerns Assessment Noted Time A fall risk assessment has been complete d for the patient 09/18/2022 8:55 AM EST documented as of this encounter Care Teams Coat Feller Relationship Specialty Start Date End Date Pavel Horvath MD [address] [place] [address] PCP - General 01/07/23 documented as of this encounter
--- OUTSIDE RECORDS SUMMARY | 2025-02-19 10:56 | XMS_ITS | Encounter Summary ---
Author Organization [employer] ([place], [place], [place], [place]) Address [address] [place] [address] Care Team Providers Care Freight Brake Operator Name Role Phone Unavailable Primary Care Provider Unavailabl e Encounter Details Date Type Department Care Team (Late st Contact Info) Description 09/18/2019 Transcribed Document [facility] [place] [address] ProviderHa MD [address] [place] [id number] Social History Tobacco Use Types Packs/Day Years Used Date Smoking Tobacco: Never Assessed Comments Unknown Sex and Gender Information Value Date Recorded Sex Assigned at Female 01/30/2022 6:43 PM CDT Legal Sex Female 6:43 PM CDT Gender Identity Female 01/30/2022 6:43 PM CDT Sexual Orientation Not on file documented as of this encounter Miscellaneous Notes * Cerner Conversion Note - Ha ProviderMD - 09/18/2019 12:00 AM CERTIFIED LEGAL INVESTIGATOR Pain Assessment Entered On: 09/18/2019 4:12 EST Performed On: 09/18/2019 0:22 EST by Adrianna Alvarado, RN Intervention Information: ibuprofen Performed by Adrianna Alvarado RN on 09/17/2019 23:22:00 EST ibuprofen,600mg Oral Pain Assessment Pain Assessment : Follow-up assessment Pain Improved by Intervention : Yes Adrianna Alvarado, RN - 09/18/2019 4:12 EST Electronically signed by Dina [facility] Conversion Steel Hanger Cerner at 11/19/2022 12:16 PM CDT documented in this encounter Plan of Treatment Not on file documented as of this encounter Visit Diagnoses Not on filedocumented in this encounter
--- OUTSIDE RECORDS SUMMARY | 2025-02-19 10:56 | XMS_ITS | Encounter Summary ---
Author Organization [employer] ([place], [place], [place], [place]) Address [address] [place] [address] Care Team Providers Care Tool And Die Engineer Name Role Phone Unavailable Primary Care Provider Unavailabl e Encounter Details Date Type Department Care Team (Late st Contact Info) Description 09/17/2019 Transcribed Document [facility] [place] [facility] [place] [address] ProviderHa MD [address] [place] [id number] Social History Tobacco Use Types Packs/Day Years Used Date Smoking Tobacco: Never Assessed Comments Unknown Sex and Gender Information Value Date Recorded Sex Assigned at Female 01/30/2022 6:43 PM CDT Legal Sex Female 6:43 PM CDT Gender Identity Female 01/30/2022 6:43 PM CDT Sexual Orientation Not on file documented as of this encounter Miscellaneous Notes * Cerner Conversion Note - Historical ProviderMD - 09/17/2019 2:34 PM [facility] Authorization Entered On: 09/17/2019 14:35 EST Performed On: 09/17/2019 14:34 EST by Erica Mckeon Rn-Utilization Review Primary Insurance Authorization Authorization and Policy Numbers : Insurance 1 Health Plan[facility] Policy Number: [id number] Authorization Number: Insurance Primary Name : [facility] Policy Number: [id number] Authorization Status-Primary : Awaiting callback Reference Number-Primary : [id number] Authorization Number-Primary : [id number] Authorized Service Begin Date-Primary : 09/17/2019 EST Authorization Comments-Primary : Attempted to put in auth thru [employer]. Received authorization for 1 day. Faxed in delivery summary with request for additional days Historical Authorization Comments-Primary : No Authorization Comments Found Erica Mckeon Rn-Utilization Review - 09/17/2019 14:34 EST Electronically signed by Dina [facility] Conversion Online Marketing Strategist Cerner at 11/19/2022 12:30 PM CDT documented in this encounter Plan of Treatment Not on file documented as of this encounter Visit Diagnoses Not on filedocumented in this encounter
--- OUTSIDE RECORDS SUMMARY | 2025-02-19 10:56 | XMS_ITS | Encounter Summary ---
Author Organization [employer] ([place], [place], [place], [place]) Address [address] [place] [address] Care Team Providers Care Correctional Nurse Name Role Phone Unavailable Primary Care Provider Unavailabl e Encounter Details Date Type Department Care Team (Late st Contact Info) Description 09/19/2019 Transcribed Document [facility] [place] [facility] [place] [address] ProviderHa MD [address] [place] [id number] Social History Tobacco Use Types Packs/Day Years Used Date Smoking Tobacco: Never Assessed Comments Unknown Sex and Gender Information Value Date Recorded Sex Assigned at Female 01/30/2022 6:43 PM CDT Legal Sex Female 6:43 PM CDT Gender Identity Female 01/30/2022 6:43 PM CDT Sexual Orientation Not on file documented as of this encounter Miscellaneous Notes * Cerner Conversion Note - Ha Dempsey MD - 09/19/2019 11:22 AM LATEX FASHIONS DESIGNER Patient Education Materials Follows:and Gynecology Vaginal Delivery, Care After Refer to this sheet in the next few weeks. These instructions provide you with information about caring for yourself after vaginal delivery. Your health care provider may also give you more specific instructions. Your treatment has been planned according to current medical practices, but problems sometimes occur. Call your health care provider if you have any problems or questions. What can I expect after the procedure? After vaginal delivery, it is common to have: ??? Some bleeding from your vagina. ??? Soreness in your abdomen, your vagina, and the area of skin between your vaginal opening and your anus (perineum). ??? Pelvic cramps. ??? Fatigue. Follow these instructions at home: Medicines ??? Take frkh-lvw-iywrtyo and prescription medicines only as told by your health care provider. ??? If you were prescribed an antibiotic medicine, take it as told by your health care provider. Do not stop taking the antibiotic until it is finished. Driving ??? Do not drive or operate heavy machinery while taking prescription pain medicine. ??? Do not drive for 24 hours if you received a sedative. Lifestyle ??? Do not drink alcohol. This is especially important if you are or taking medicine to relieve pain. ??? Do not use tobacco products, including cigarettes, chewing tobacco, or e-cigarettes. If you need help quitting, ask your health care provider. Eating and drinking ??? Drink at least 8 eight-ounce glasses of water every day unless you are told not to by your health care provider. If you choose to breastfeed your baby, you may need to drink more water than this. ??? Eat high-fiber foods every day. These foods may help prevent or relieve constipation. High-fiber foods include: ? Whole grain cereals and breads. ? Brown rice. ? Beans. ? Fresh fruits and vegetables. Activity ??? Return to your normal activities as told by your health care provider. Ask your health care provider what activities are safe for you. ??? Rest as much as possible. Try to rest or take a nap when your baby is sleeping. ??? Do not lift anything that is heavier than your baby or 10 lb (4.5 kg) until your health care provider says that it is safe. ??? Talk with your health care provider about when you can engage in sexual activity. This may depend on your: ? Risk of infection. ? Rate of healing. ? Comfort and desire to engage in sexual activity. Vaginal Care ??? If you have an episiotomy or a vaginal tear, check the area every day for signs of infection. Check for: ? More redness, swelling, or pain. ? More fluid or blood. ? Warmth. ? Pus or a bad smell. ??? Do not use tampons or douches until your health care provider says this is safe. ??? Watch for any blood clots that may pass from your vagina. These may look like clumps of dark red, brown, or black discharge. General instructions ??? Keep your perineum clean and dry as told by your health care provider. ??? Wear loose, comfortable clothing. ??? Wipe from front to back when you use the toilet. ??? Ask your health care provider if you can shower or take a bath. If you had an episiotomy or a perineal tear during labor and delivery, your health care provider may tell you not to take baths for a certain length of time. ??? Wear a bra that supports your breasts and fits you well. ??? If possible, have someone help you with household activities and help care for your baby for at least a few days after you leave the hospital. ??? Keep all follow-up visits for you and your baby as told by your health care provider. This is important. Contact a health care provider if: ??? You have: ? Vaginal discharge that has a bad smell. ? Difficulty urinating. ? Pain when urinating. ? A sudden increase or decrease in the frequency of your bowel movements. ? More redness, swelling, or pain around your episiotomy or vaginal tear. ? More fluid or blood coming from your episiotomy or vaginal tear. ? Pus or a bad smell coming from your episiotomy or vaginal tear. ? A fever. ? A rash. ? Little or no interest in activities you used to enjoy. ? Questions about caring for yourself or your baby. ??? Your episiotomy or vaginal tear feels warm to the touch. ??? Your episiotomy or vaginal tear is or does not appear to be healing. ??? Your breasts are painful, hard, or turn red. ??? You feel unusually sad or worried. ??? You feel nauseous or you vomit. ??? You pass large blood clots from your vagina. If you pass a blood clot from your vagina, save it to show to your health care provider. Do not flush blood clots down the toilet without having your health care provider look at them. ??? You urinate more than usual. ??? You are dizzy or light-headed. ??? You have not breastfed at all and you have not had a menstrual period for 12 weeks after delivery. ??? You have stopped and you have not had a menstrual period for 12 weeks after you stopped . Get help right away if: ??? You have: ? Pain that does not go away or does not get better with medicine. ? Chest pain. ? Difficulty breathing. ? Blurred vision or spots in your vision. ? Thoughts about hurting yourself or your baby. ??? You develop pain in your abdomen or in one of your legs. ??? You develop a severe headache. ??? You faint. ??? You bleed from your vagina so much that you fill two sanitary pads in one hour. This information is not intended to replace advice given to you by your health care provider. Make sure you discuss any questions you have with your health care provider. Document Released: 07/19/2001 Document Revised: 01/02/2017 Document Reviewed: 08/05/2016 Elsevier Interactive Patient Education ? 2019 [employer] documented in this encounter Plan of Treatment Not on file documented as of this encounter Visit Diagnoses Not on filedocumented in this encounter
--- OUTSIDE RECORDS SUMMARY | 2025-02-19 10:56 | XMS_ITS | Clinical Summary ---
Author Organization [facility] Address [address] [place] [address] Care Team Providers Care Em Physician Name Role Phone Yun Wong Primary Care Provider [phone] Allergies Active Allergy Reactions Criticality Noted Date Comments Hydrocodone-Acetaminophen Nausea And Vomiting Low 0 02/09/2022 Medications fluconazole (Diflucan) 150 MG tabletIndication s:Yeast vaginitis Take 1 tablet by mouth Daily. Repeat dose in 3 days 2 tablet 10/30/2023 Active Active Problems Problem Noted Date Diagnosed Date (spontaneous vaginal delivery) 09/19/2023 premature rupture of membranes (PPROM) with unknown onset of labor 09/18/2023 Recurrent vaginitis 09/09/2023 Overview (09/15/2023): 07/02/23 +Ureaplasma -Tx w/ Azithromycin 08/01/23 +Ureaplasma, + Prevotella juan. Treated w/ Metrogel 08/13/23. 08/14/23 +Ureaplasma. 08/19/23 Tx w/ Azithromycin, Significant other tx w/ doxy 09/09/23-Vaginal d/c and odor still present. Urea/Mycoplasma, BV, yeast Neg Third trimester 08/10/2023 Abdominal pain 07/26/2023 Vaginal bleeding 06/10/2023 Vaginal discharge in in second trimest er 05/01/2023 Assessment & Plan (05/01/2023 9:24 AM EDT): Macroscopic evidence of yeast infection today. Patient given prescription for fluconazole with [address] and trichomonas also sent today. Urine culture sent today. Recurrent loss with current 04/01/2023 History of loss in prior , currently 04/01/2023 History of premature rupture of membrane s (PPROM) 04/01/2023 Incompetent cervix in , antepartum 03/06 Overview (09/09/2023): Cervical cerclage on 04/16/2023 at 13w4d Taking vaginal Prometrium 200MG PV Assessment & Plan (05/06/2023 1:18 PM EDT): Cerclage placed on April 16 at 13 weeks and 4 days. This was a history indicated cerclage for history of PPROM at 17 weeks and a prior . Cervical length today 4.39 cm with no funneling or debris seen. We will follow-up in 2 weeks for ultrasound. Immunizations Immunization Administration Dates Next Due DTP / HiB 03/17/1996 Hep B, Adolescent or Pediatric 05/14/2003,2002 MMR 03/17/1996 OPV 03/17/1996 Td (TDVAX) 11/13/2002 Tdap 08/01/2023 Family History Medical History Relation Name Comments Breast cancer Neg Hx Colon cancer Neg Hx Ovarian cancer Neg Hx Uterine cancer Neg Hx Social History Tobacco Use Types Packs/Day Years Used Date Smoking Tobacco: Former Cigarettes 0.5 15 Smokeless Tobacco: Never Tobacco Cessation:Counseling Given: Not Answered Alcohol Use Standard Drinks/Week Comments Not Currently 0 (1 standard drink = 0.6 oz pur e alcohol) [facility] Utilities Answer Date Recorded In the past 12 months has [employer], gas, oil, or water [employer] threatened to shut off services in your home? No 09/19/2023 AUDIT-C Answer Date Recorded Q1: How often do you have a drink containing alcohol? Never 09/19/2023 Q2: How many drinks containi ng alcohol do you have on a typical day when you are drinking? Patient does not drink Q3: How often do you have si x or more drinks on one occasion? Never 09/19/2023 Overall Financial Resource Strain (CARDIA) Answe r Date Recorded How hard is it for you to pa y for the very basics like food, housing, medical care, and heating? Not very hard 09/19/2023 PHQ-2 Answer Date Recorded Retired PHQ-9: Brief Depression Severity Measure Score 0 04/16/2023 [facility] - Occupational Stress Questionnaire Answer Date Recorded Do you feel stress - tense, restless, nervous, or anxious, or unable to sleep at night because your mind is troubled all the time - these days? Not at all 09/19/2023 Exercise Vital Sign Answer Date Recorde d On average, how many days pe r week do you engage in moderate to strenuous exercise (like a brisk walk)? 5 days 09/19/2023 On average, how many minutes do you engage in exercise at this level? 30 min 09/19/2023 Hunger Vital Sign Answer Date Recorded Within the past 12 months, y ou worried that your food would run out before you got the money to buy more. Never true 09/19/19 24 Within the past 12 months, t he food you bought just didn't last and you didn't have money to get more. Never true 09/19/2023 PRAPARE - Transportation Answer Date Re corded In the past 12 months, has l ack of transportation kept you from medical appointments or from getting medications? No 09/05 In the past 12 months, has l ack of transportation kept you from meetings, work, or from getting things needed for daily living? No 09/19/2023 [place] Depression Scale Answer Date Recorded Retired [place] Depression Score 7 10/30/2023 Retired EPD Scale: Thought of Harming Self Unrec ognized value 10/30/2023 Abuse Screen Answer Date Recorded Feels Unsafe at Home or Work/School no 09/18/2023 Feels Threatened by Someone no 09/05 Does Anyone Try to Keep You From Having Contact with Others or Doing Things Outside Your Home? no 09/18/2023 Physical Signs of Abuse Present no 09/18/2023 Housing Stability Answer Date Recorded Current Living Arrangements home 09/05 Potentially Unsafe Housing Conditions none 09/19/2023 Family and Community Support Answer Joshua e Recorded If for any reason you need h elp with day-to-day activities such as bathing, preparing meals, shopping, managing finances, etc., do you get the help you need? I don't need any help 09/19/2023 How often do you feel lonely or isolated from those around you? Never 09/19/2023 Employment Answer Date Recorded Do you want help finding or keeping work or a job? I do not need or want help 09/19/2023 Disabilities Answer Date Recorded Difficulty Concentrating, Remembering or Making Decisions yes 09/19/2023 Difficulty Managing Errands Independently yes 09/19/2023 Education Answer Date Recorded Do you want help with school or training? For example, starting or completing job training or getting a high school diploma, GED or equivalent No 09/19/2023 Preferred Language Malay 09/19/2023 PHQ-2 Answer Date Recorded Retired PHQ-9: Brief Depression Severity Measure Score 0 09/19/2023 Education Answer Date Recorded What is the highest level of school you have completed or the highest degree you have received? High school graduate 09/18/2023 Comments No Sex and Gender Information Value Date Recorded Sex Assigned at Not on file Legal Sex Female 1:45 PM EDT Gender Identity Not on file Sexual Orientation Not on file Last Filed Vital Signs Vital Sign Reading Time Taken Comments Blood Pressure 110/72 10/30/2023 10:36 AM EDT Pulse 76 09/21/2023 7:30 AM EST Temperature 36.4 C (97.6 F) 09/21/2023 7:30 AM EST Respiratory Rate 20 09/21/2023 7:30 AM EST Oxygen Saturation 100% 09/19/2023 4:32 PM EST Inhaled Oxygen Concentration - - Weight 71.2 kg (157 lb) 10/30/2023 10:36 AM EDT Height 167.6 cm (5' 5.98 ) 10/30/2023 10:36 AM E DT Body Mass Index 25.35 10/30/2023 10:36 AM EDT Plan of Treatment Health Maintenance Due Date Last Done Comments Annual Gynecologic Pelvic an d Breast Exam 1992 ANNUAL PHYSICAL 03/30/2017 COVID-19 Vaccine (2023- 5 season) 2024 05/17/2021, 11/15/2020, 10/24/2020 INFLUENZA VACCINE 05/05/2025 PAP SMEAR 03/08/2026 03/08/2023 (Patient-Reported (Performed Externally)) TDAP/TD VACCINES (3 - Td or Tdap) 08/01/2033 08/01/2023, 11/13/2002 HEPATITIS C SCREENING Completed 04/24/2023 Pneumococcal Vaccine 0-49 Aged Out No longer eligible based on patient's age to complete this topic Medical Devices Implanted Type Area Agriscience Instructor Device Identifier Shelf Expiration Date Model / Serial / Lot [employer]-Both On Top Procedures Procedure Name Priority Date/Time Associated Diagnosis Comments HEPATITIS C ANTIBODY Routine 04/24/2023 from Last 3 Months or Most Recently Relevant to Health Maintenance Results * Hepatitis C Antibody (04/24/2023) Hep C Virus Ab Non-reacti ve Blood Historical Provider LAB BLOOD ORDERABLES Venessa l Result from Last 3 Months or Most Recently Relevant to Health Maintenance Insurance [employer] Advance Directives * CPR (Attempt to Resuscitate) (Latest Code Status on File) Date Activated Date Inactivated Comments 09/19/2023 9:11 PM 09/21/2023 3:47 PM Question Answer Comments Code Status (Patient has no pulse and is not breathing): CPR (Attempt to Resuscitate) Medical Interventions (Patie nt has pulse or is breathing): Full * CPR (Attempt to Resuscitate) Date Activated Date Inactivated Comments 09/18/2023 10:56 PM 09/19/2023 9:11 PM Question Answer Comments Code Status (Patient has no pulse and is not breathing): CPR (Attempt to Resuscitate) Medical Interventions (Patie nt has pulse or is breathing): Full Support Level Of Support Discussed With: Patient Care Teams Em Physician Relationship Specialty Start Date End Date Yun Wong PA PCP - General Physician District Scout Executive 04/18/23
--- OUTSIDE RECORDS SUMMARY | 2025-02-19 10:56 | XMS_ITS | Encounter Summary ---
Author Organization [employer] ([place], [place], [place], [place]) Address [address] [place] [address] Care Team Providers Care Sewing Machine Assembler Name Role Phone Unavailable Primary Care Provider Unavailabl e Encounter Details Date Type Department Care Team (Late st Contact Info) Description 09/17/2019 Transcribed Document [facility] [place] [address] ProviderHa MD [address] [place] [id number] Social History Tobacco Use Types Packs/Day Years [...] Conversion Note - Historical ProviderMD - 09/17/2019 7:58 AM COMMUNITY RELATIONS ADVISOR Admission Data, OB Entered On: 09/17/2019 8:00 EST Performed On: 09/17/2019 7:58 EST by UMBERTO LONGORIA RN Advance Directive Patient has Advance Directive *Q : No, patient refuses Advance Directive information UMBERTO LONGORIA RN - 09/17/2019 7:58 EST Height and Weight Height Source : Measured Height Entry Format : [place] Height, Feet : 5 ft(Converted to: 152 cm, 60 Inch) Clinical Height : 160.02 cm Height, Inches : 3 Inch(Converted to: 0 ft 3 Inch, 7.62 cm) Weight Source : Standing scale Weight Entry Format : [place] Weight, Pounds : 174 lb Clinical Dosing Weight : 79.09 kg Body Surface Area (BSA) : 1.82 m2 Body Mass Index : 30.9 kg/m2 (HI) [place] Body Weight (IBW) : 52.02 kg UMBERTO LONGORIA RN - 09/17/2019 7:58 EST Health Histories Smoking Status : 10 or more cigarettes (1/2 pack or more)/day in last 30 days Smokeless Tobacco Status : Never Desires Tobacco Cessation Medication : No Reason for No Tobacco Cessation Medication : Refuses FDA approved medications UMBERTO LONGORIA RN - 09/17/2019 7:58 EST Social History (As Of: 09/17/2019 08:00:49 EST) Tobacco: Use in Last 12 Months: Cigarettes. Smoking Status Current every day smoker. Years of Use: 4. Packs/Tins Daily: .25. (Last Updated: 12/12/2014 12:06:18 EDT by ALEX IRAHETA RN) Alcohol: Alcohol Use Frequency Socially. (Last Updated: 09/19/2016 13:01:23 EST by RIVKA LONG, RN) Tetanus Immunization Status Previous Tetanus Immunizations : No qualifying data available. Tetanus Immunization : Unknown UMBERTO LONGORIA RN - 09/17/2019 7:58 EST Influenza Vaccine Asmt, Adult Previous Vaccines from Immunization Schedule : No qualifying data available. Influenza Immunization, Current Season : Yes Influenza Immunization Date : 06/19/2019 EST UMBERTO LONGORIA RN - 09/17/2019 7:58 EST Pneumococcal Vaccine Previous Vaccines from Immunization Schedule : No qualifying data available. Pneumonia Immunization Received : No Pneumococcal Risk Assessment < Age 65 : None UMBERTO LONGORIA RN - 09/17/2019 7:58 EST Order Details Transport Mode Order Detail : Ambulatory Isolation Precautions Order Detail : Standard Precautions Order Detail : 1 IV Order Detail : 0 Oxygen Order Detail : 0 Nurse Collect Order Detail : 1 Lift/Transfer : Minimal Central Line Order Detail : No Room Service : Appropriate Arterial Line : No UMBERTO LONGORIA RN - 09/17/2019 7:58 EST Vital Measurements Temperature Source : Oral Temperature Mode : Fahrenheit Temperature, Fahrenheit : 97.5 Deg F Clinical Temperature, C : 36.4 Deg C Pulse Method : Non-Invasive BP Device Heart Rate, Apical : 92 bpm Pulse Rhythm : Regular Respiratory Rate : 16 Breaths/Min Systolic Blood Pressure : 118 mmHg Diastolic Blood Pressure : 71 mmHg UMBERTO LONGORIA RN - 09/17/2019 7:58 EST Infectious Disease History Physical contact outside [place] in the last 30 days : No Infectious Disease History : None, Chicken pox/Shingles, Influenza Tuberculosis Symptoms : None UMBERTO LONGORIA RN - 09/17/2019 7:58 EST [place] Suicide Severity Rating Scale (C-SSRS) CSSRS Past Month Wish to be : No CSSRS Past Month Suicidal Thoughts : No CSSRS Lifetime Suicide Behavior : No Suicide Severity Rating Score : 0 Suicide Severity Rating : No Additional Care Required at this time UMBERTO LONGORIA RN - 09/17/2019 7:58 EST documented in this encounter Plan of Treatment Not on file documented as of this encounter Visit Diagnoses Not on filedocumented in this encounter
--- OUTSIDE RECORDS SUMMARY | 2025-02-19 10:56 | XMS_ITS | Encounter Summary ---
Author Organization [employer] ([place], [place], [place], [place]) Address [address] [place] [address] Care Team Providers Care Glazing Superintendent Name Role Phone Unavailable Primary Care Provider Unavailabl e Encounter Details Date Type Department Care Team (Late st Contact Info) Description 01/17/2022 Transcribed Document [facility] [place] [facility] [place] [address] ProviderHa MD [address] [place] [id number] Social History Tobacco Use Types Packs/Day [...] Cerner Conversion Note - Ha ProviderMD - 01/17/2022 9:33 PM CDT Patient Education Materials Follows:and Gynecology Prelabor Rupture and Prelabor Rupture of Membranes Rupture of membranes is when the sac of fluid that surrounds a baby in the uterus (amniotic sac) breaks open. This is commonly referred to as your water breaking. If your water breaks before labor starts (prematurely), it is called prelabor rupture of membranes (PROM). If PROM occurs before 37 weeks of , it is called prelabor rupture of membranes (PPROM). Because the amniotic sac keeps infection out and performs other important functions, having the amniotic sac rupture before 37 weeks of can lead to serious problems for the mother and the baby. These include an increased risk of: ??? Needing to have a delivery, or . ??? A serious infection for both the mother and the baby. ??? Respiratory distress syndrome in the baby. ??? The baby's lungs not developing as much as normal. ??? Bleeding in the baby's brain. ??? The baby dying. PPROM requires immediate attention from a health care provider. What are the causes? When PROM occurs at 37 weeks of or later, it is usually caused by natural weakening of the membranes and friction caused by contractions. PPROM is usually caused by infection. In many cases, the cause is not known. What increases the risk? The following factors may make you more likely to have PPROM: ??? Infection. ??? Having had PPROM in a previous . ??? Having a short cervix. ??? Bleeding during the second or third trimester. ??? Low body mass index (BMI), which is an estimate of body fat. ??? Smoking or using drugs. What are the signs or symptoms? Signs of PROM and PPROM include: ??? A sudden gush or slow leaking of fluid from the vagina. ??? Constant wet underwear. Sometimes, women mistake the leaking or wetness for urine, especially if the leak is slow and not a gush of fluid. If there is constant leaking or if your underwear continues to get wet, your membranes have likely ruptured. How is this diagnosed? This condition may be diagnosed based on: ??? Your symptoms and medical history. ??? A physical exam. This will include a cervical exam that is done using a lubricated instrument (speculum) to check whether the cervix has softened or started to open (dilate) and to look for amniotic fluid in the vagina. ??? Tests to check for the presence of amniotic fluid in the vagina. How is this treated? Treatment will depend on many factors, such as how many weeks you have been (how far along you are), the development of the baby, and other complications that may occur. Treatment may include: ??? Taking steps to cause you to start the labor process (labor induction). This may be done if: ? You have PROM. In this case, labor may be induced within 24 hours if you are not having contractions. ? You have PPROM that happens after you have reached the 34th week of . Labor may be induced if you are not having contractions. ? You have PPROM that happens before the 34th week of and complications occur for you or the baby. ??? Monitoring you and the baby closely for signs of infection or other complications. ??? Medicines, such as: ? An antibiotic to lower the chances of developing an infection. ? A steroid to help mature the baby's lungs more quickly. ? A medicine to help prevent cerebral palsy in your baby. Follow these instructions at home: You may need to stay in the hospital for treatment and monitoring. If you are allowed to go home, follow instructions from your health care provider. Make sure you: ??? Rest as told by your health care provider. ??? Take [id number] and prescription medicines only as told by your health care provider. ??? Do not use any products that contain nicotine or tobacco, such as cigarettes, e-cigarettes, and chewing tobacco. If you need help quitting, ask your health care provider. ??? Do not drink alcohol. ??? Return to the hospital as told by your health care provider. Contact a health care provider if: ??? You have a sudden gush or slow leaking of fluid from the vagina after 37 weeks of . ??? You have constant wet underwear after 37 weeks of . Get help right away if: ??? Your amniotic sac ruptures before 37 weeks of . ??? You are being monitored at home after PROM or PPROM and you develop signs of an infection, such as fever, chills, body aches, or abdominal pain. ??? You have signs of labor, such as abdominal pain or menstrual-like cramping. ??? You have vaginal bleeding. ??? The color of your vaginal fluid changes from clear to green, brown, or bloody. ??? You see the umbilical cord sticking out from your vagina or you feel the cord in your vagina. Summary ??? Rupture of membranes is when the sac of fluid that surrounds a baby in the uterus (amniotic sac) breaks open. ??? If rupture of membranes happens after 37 weeks of and labor has not started, it is called PROM. If it happens before 37 weeks of , it is called PPROM. ??? PPROM causes an increased risk of some serious problems for you and your baby. ??? Follow your health care provider's instructions for when to seek help. This information is not intended to replace advice given to you by your health care provider. Make sure you discuss any questions you have with your health care provider. Document Revised: 08/11/2020 Document Reviewed: 08/11/2020 Else[employer] Effective Data Patient Education ? 2020 myOrder. documented in this encounter Plan of Treatment Not on file documented as of this encounter Visit Diagnoses Not on filedocumented in this encounter
--- OUTSIDE RECORDS SUMMARY | 2025-02-19 10:56 | XMS_ITS | Encounter Summary ---
Author Organization [employer] ([place], [place], [place], [place]) Address [address] [place] [address] Care Team Providers Care Collision Repairer Name Role Phone Unavailable Primary Care Provider Unavailabl e Encounter Details Date Type Department Care Team (Late st Contact Info) Description 07/18/2019 Transcribed Document [facility] [place] Family [place] [address] ProviderHa MD [address] [place] [id number] Social History Tobacco Use Types Packs/Day Years Used Date Smoking Tobacco: Never Assessed Comments Unknown Sex and Gender Information Value Date Recorded Sex Assigned at Female 01/30/2022 6:43 PM CDT Legal Sex Female 6:43 PM CDT Gender Identity Female 01/30/2022 6:43 PM CDT Sexual Orientation Not on file documented as of this encounter Miscellaneous Notes * Cerner Conversion Note - Historical ProviderMD - 07/18/2019 6:00 PM INSURANCE EXECUTIVE Admission Data, OB Entered On: 07/18/2019 18:02 EST Performed On: 07/18/2019 18:00 EST by Heath Heard RN Advance Directive Patient has Advance Directive *Q : No, patient refuses Advance Directive information Heath Heard RN - 07/18/2019 18:00 EST Height and Weight Height Source : Measured Height Entry Format : [place] Height, Feet : 5 ft(Converted to: 152 cm, 60 Inch) Clinical Height : 167.64 cm Height, Inches : 6 Inch(Converted to: 0 ft 6 Inch, 15.24 cm) Weight Source : Standing scale Weight Entry Format : [place] Weight, Pounds : 159 lb Clinical Dosing Weight : 72.27 kg Body Surface Area (BSA) : 1.82 m2 Body Mass Index : 25.7 kg/m2 (HI) [place] Body Weight (IBW) : 58.88 kg Heath Heard RN - 07/18/2019 18:00 EST Health Histories Smoking Status : 10 or more cigarettes (1/2 pack or more)/day in last 30 days Smokeless Tobacco Status : Never Desires Tobacco Cessation Medication : No Reason for No Tobacco Cessation Medication : Refuses FDA approved medications Heath Heard, KHAI - 07/18/2019 18:00 EST Social History (As Of: 07/18/2019 18:02:20 EST) Tobacco: Use in Last 12 Months: Cigarettes. Smoking Status Current every day smoker. Years of Use: 4. Packs/Tins Daily: .25. (Last Updated: 12/12/2014 12:06:18 EDT by ALEX IRAHETA RN) Alcohol: Alcohol Use Frequency Socially. (Last Updated: 09/19/2016 13:01:23 EST by RIVKA LONG, KHAI) Gestational Age Gestational Age Person Gestational Age At : 30 weeks 3 days Method : Comment : Tetanus Immunization Status Previous Tetanus Immunizations : No qualifying data available. Tetanus Immunization : Unknown Heath Heard RN - 07/18/2019 18:00 EST Influenza Vaccine Asmt, Adult Previous Vaccines from Immunization Schedule : No qualifying data available. Influenza Immunization, Current Season : Yes Heath Heard RN - 07/18/2019 18:00 EST Pneumococcal Vaccine Previous Vaccines from Immunization Schedule : No qualifying data available. Pneumonia Immunization Received : No Pneumococcal Risk Assessment < Age 65 : None Heath Heard RN - 07/18/2019 18:00 EST Order Details Transport Mode Order Detail : Ambulatory Isolation Precautions Order Detail : Standard Precautions Order Detail : 1 IV Order Detail : 1 Oxygen Order Detail : 0 Nurse Collect Order Detail : 1 Lift/Transfer : Independent Central Line Order Detail : No Room Service : Appropriate Arterial Line : No Heath Heard RN - 07/18/2019 18:00 EST Vital Measurements Temperature Source : Oral Temperature Mode : Fahrenheit Temperature, Fahrenheit : 98.3 Deg F Clinical Temperature, C : 36.8 Deg C Pulse Method : Non-Invasive BP Device Peripheral Pulse Rate : 109 bpm (HI) Pulse Rhythm : Regular Respiratory Rate : 18 Breaths/Min Blood Pressure Source : Non-Invasive BP Device Systolic Blood Pressure : 113 mmHg Diastolic Blood Pressure : 65 mmHg Heath Heard RN - 07/18/2019 18:00 EST Infectious Disease History Infectious Disease History : None, Chicken pox/Shingles, Influenza Fever/Chills Last 48 Hours : No Travel To Regions with Travel Advisories : No Travel Outside [place] Within Last 30 Days : No Contact With Traveler to Advisory Region : No Tuberculosis Symptoms : None Heath Heard RN - 07/18/2019 18:00 EST [place] Suicide Severity Rating Scale (C-SSRS) CSSRS Past Month Wish to be : No CSSRS Past Month Suicidal Thoughts : No CSSRS Lifetime Suicide Behavior : No Suicide Severity Rating Score : 0 Suicide Severity Rating : No Additional Care Required at this time Heath Heard RN - 07/18/2019 18:00 EST documented in this encounter Plan of Treatment Not on file documented as of this encounter Visit Diagnoses Not on filedocumented in this encounter
--- OUTSIDE RECORDS SUMMARY | 2025-02-19 10:56 | XMS_ITS | Encounter Summary ---
Author Organization [employer] ([place], [place], [place], [place]) Address [address] [place] [address] Care Team Providers Care Quarry Equipment Operator Name Role Phone Unavailable Primary Care Provider Unavailabl e Encounter Details Date Type Department Care Team (Late st Contact Info) Description 09/19/2019 Transcribed Document [facility] [place] [facility] [place] [address] ProviderHa MD [address] [place] [id number] Social History Tobacco Use Types Packs/Day Years Used Date Smoking Tobacco: Never Assessed Comments Unknown Sex and Gender Information Value Date Recorded Sex Assigned at Female 01/30/2022 6:43 PM CDT Legal Sex Female 6:43 PM CDT Gender Identity Female 01/30/2022 6:43 PM CDT Sexual Orientation Not on file documented as of this encounter Miscellaneous Notes * Cerner Conversion Note - Historical ProviderMD - 09/19/2019 1:37 AM WHITE METAL CORROSION PROOFER Freight Coordinator Details Entered On: 09/19/2019 1:37 EST Performed On: 09/19/2019 1:37 EST by Adrianna Alvarado, RN Order Details Transport Mode Order Detail : Wheelchair Isolation Precautions Order Detail : Standard Precautions Order Detail : 0 IV Order Detail : 0 Oxygen Order Detail : 0 Nurse Collect Order Detail : 0 Lift/Transfer : Independent Central Line Order Detail : No Room Service : Appropriate Arterial Line : No Adrianna Alvarado, RN - 09/19/2019 1:37 EST documented in this encounter Plan of Treatment Not on file documented as of this encounter Visit Diagnoses Not on filedocumented in this encounter
--- OUTSIDE RECORDS SUMMARY | 2025-02-19 10:56 | XMS_ITS | Encounter Summary ---
Author Organization [employer] ([place], [place], [place], [place]) Address [address] [place] [address] Care Team Providers Care Credit Advisor Name Role Phone Unavailable Primary Care Provider Unavailabl e Encounter Details Date Type Department Care Team (Late st Contact Info) Description 09/17/2019 Transcribed Document [facility] [place] formerly [facility] [place] [address] ProviderHa MD [address] [place] [id number] Social History Tobacco Use Types Packs/Day Years Used Date Smoking Tobacco: Never Assessed Comments Unknown Sex and Gender Information Value Date Recorded Sex Assigned at Female 01/30/2022 6:43 PM CDT Legal Sex Female 6:43 PM CDT Gender Identity Female 01/30/2022 6:43 PM CDT Sexual Orientation Not on file documented as of this encounter Miscellaneous Notes * Cerner Conversion Note - Ha ProviderMD - 09/17/2019 1:32 PM UTILITY WORKER DRIVER Pain Assessment Entered On: 09/18/2019 4:12 EST Performed On: 09/18/2019 0:22 EST by Adrianna Alvarado, RN Intervention Information: acetaminophen-oxyCODONE Performed by Adrianna Alvarado, RN on 09/17/2019 23:22:00 EST acetaminophen-oxyCODONE,1Tab Oral,Pain (Moderate 4-6) Pain Assessment Pain Assessment : Follow-up assessment Pain Improved by Intervention : Yes Adrianna Alvarado, RN - 09/18/2019 4:12 EST Electronically signed by Dina [facility] Conversion Hoop Puncher Cerner at 11/19/2022 12:32 PM CDT documented in this encounter Plan of Treatment Not on file documented as of this encounter Visit Diagnoses Not on filedocumented in this encounter
--- OUTSIDE RECORDS SUMMARY | 2025-02-19 10:56 | XMS_ITS | Encounter Summary ---
[facility] Organization [facility] Address [address] [place] [address] Care Team Providers Care Rail Detector Car Operator Name Role Phone Yun Wong Primary Care Provider [phone] Reason for Visit * Reason Onset Date Comments Med Refill 05/14/2023 Encounter Details Date Type Department Care Team (Late st Contact Info) Description 05/14/2023 Refill [facility] MATERNAL MEDICINE [address] [facility] [address] [place] [phone] Marcos Brown MD [address] [facility] [address] [place] [address] Social History Tobacco Use Types Packs/Day Years Used Date Smoking Tobacco: Former Cigarettes 1 8 Smokeless Tobacco: Never Alcohol Use Standard Drinks/Week Comments Not Currently 0 (1 standard drink = 0.6 oz pur e alcohol) AUDIT-C Answer Date Recorded Q1: How often do you have a drink containing alcohol? Never 04/16/2023 Q2: How many drinks containi ng alcohol do you have on a typical day when you are drinking? Patient does not drink Q3: How often do you have si x or more drinks on one occasion? Never 04/16/2023 Overall Financial Resource Strain (CARDIA) Answe r Date Recorded How hard is it for you to pa y for the very basics like food, housing, medical care, and heating? Not hard at all 04/16/2023 PHQ-2 Answer Date Recorded Retired PHQ-9: Brief Depression Severity Measure Score 0 04/16/2023 Exercise Vital Sign Answer Date Recorde d On average, how many days pe r week do you engage in moderate to strenuous exercise (like a brisk walk)? 0 days 04/16/2023 On average, how many minutes do you engage in exercise at this level? 0 min 04/16/2023 Hunger Vital Sign Answer Date Recorded Within the past 12 months, y ou worried that your food would run out before you got the money to buy more. Never true 04/16/20 23 Within the past 12 months, t he food you bought just didn't last and you didn't have money to get more. Never true 04/16/2023 PRAPARE - Transportation Answer Date Re corded In the past 12 months, has l ack of transportation kept you from medical appointments or from getting medications? No 04/05 In the past 12 months, has l ack of transportation kept you from meetings, work, or from getting things needed for daily living? No 04/16/2023 Abuse Screen Answer Date Recorded Feels Unsafe at Home or Work/School no 04/16/2023 Feels Threatened by Someone no 04/05 Does Anyone Try to Keep You From Having Contact with Others or Doing Things Outside Your Home? no 04/16/2023 Physical Signs of Abuse Present no 04/16/2023 Housing Stability Answer Date Recorded Current Living Arrangements home 04/05 Potentially Unsafe Housing Conditions none 04/16/2023 Family and Community Support Answer Joshua e Recorded If for any reason you need h elp with day-to-day activities such as bathing, preparing meals, shopping, managing finances, etc., do you get the help you need? I don't need any help 04/16/2023 How often do you feel lonely or isolated from those around you? Never 04/16/2023 Employment Answer Date Recorded Do you want help finding or keeping work or a job? I do not need or want help 04/16/2023 Disabilities Answer Date Recorded Difficulty Concentrating, Remembering or Making Decisions no 04/16/2023 Difficulty Managing Errands Independently no 04/16/2023 Education Answer Date Recorded Do you want help with school or training? For example, starting or completing job training or getting a high school diploma, GED or equivalent No 04/16/2023 Preferred Language Setswana 04/16/2023 PHQ-2 Answer Date Recorded Retired PHQ-9: Brief Depression Severity Measure Score 0 04/16/2023 Comments Yes Sex and Gender Information Value Date Recorded Sex Assigned at Not on file Legal Sex Female 1:45 PM EDT Gender Identity Not on file Sexual Orientation Not on file documented as of this encounter Plan of Treatment Not on file documented as of this encounter Visit Diagnoses Not on filedocumented in this encounter Care Teams Rail Detector Car Operator Relationship Specialty Start Date End Date Yun Wong PA PCP - General Physician Blind Slat Stapling Machine Operator 04/18/23 documented as of this encounter
--- OUTSIDE RECORDS SUMMARY | 2025-02-19 10:56 | XMS_ITS | Encounter Summary ---
Author Organization [employer] ([place], [place], [place], [place]) Address [address] [place] [address] Care Team Providers Care Pillowcase Cleaner Name Role Phone Unavailable Primary Care Provider Unavailabl e Encounter Details Date Type Department Care Team (Late st Contact Info) Description 09/18/2019 Transcribed Document [facility] [place] [address] ProviderHa MD [address] [place] [address] [id number] Social History Tobacco Use Types Packs/Day Years Used Date Smoking Tobacco: Never Assessed Comments Unknown Sex and Gender Information Value Date Recorded Sex Assigned at Female 01/30/2022 6:43 PM CDT Legal Sex Female 6:43 PM CDT Gender Identity Female 01/30/2022 6:43 PM CDT Sexual Orientation Not on file documented as of this encounter Miscellaneous Notes * Cerner Conversion Note - Historical ProviderMD - 09/18/2019 6:14 PM PROP SAWYER Patient: MERLYN MARKS Age: 29 Years Sex: Female : 1990 Subjective s/p after spont labor 39wks. baby doing well in nicu - fluid on lungs from fast 2nd stage. mom up ad christine with ease, pain well controlled. minimal lochia Review of Systems ros neg Objective Vitals & Measurements vss; afebrile General: nad Breast: nontender Cardiovascular: reg rate Lungs: unlabored Abdomen: fundus firm, nl lochia Ext: no edema or calf pain Incision/Episiotomy/Lac: intact Assessment/Plan 1. routine pp orders. baby girl in nicu 2. likely d/c home tomorrow Encounter for supervision of normal first , unspecified trimester Z34.00, Encounter for supervision of normal first , unspecified trimester Z34.00 1. Encourage ambulation/incentive spirometry every 15 minutes 2. DVT Prophylaxis 3. Tobacco abuse assessment: Smoker Yes(_)/No(_), If yes, plan: 4. control discussion and choice: 5. Feeding choice: 6. Vaccinations: 7. Return appointment: 8. depression follow-up plan: 9. Two hour OGTT scheduled for 6 week visit: Yes(_)/No(_) Data [place] (_) NICU (_) Medications Inpatient Adacel (Tdap), 0.5 mL, IntraMuscular, 1-Time, PRN aluminum hydroxide/magnesium hydroxide/simethicone 200 mg-200 mg-20 mg/5 mL oral suspension, 30 mL, Oral, Q4H, PRN Ambien, 5 mg= 1 Tab, Oral, At Bedtime, PRN bupivacaine-fentaNYL 100 mL, 100 mL, Epidural Cytotec, 400 mcg= 2 Tab, Rectal, 1-Time, PRN Dermoplast 20% topical spray, 1 [place], Topical, Q4H, PRN Hemabate, 250 mcg= 1 mL, IntraMuscular, 1-Time, PRN hydrocortisone-pramoxine 1%-1% rectal cream, 1 Application, Rectal, Q4H, PRN ibuprofen, 600 mg= 1 Tab, Oral, Q6H lanolin topical ointment, 1 Application, Topical, See Comment, PRN measles/mumps/rubella virus vaccine, 0.5 mL, SubCutaneous, 1-Time, PRN Methergine, 0.2 mg= 1 mL, IntraMuscular, 1-Time, PRN Mylicon, 80 mg= 1 Tab, Chew, Q4H, PRN Nonpharmacologic methods, 1 Each, Miscellaneous, See Comment, PRN Pepcid, 20 mg= 1 Tab, Oral, Q12H, PRN Percocet 5/325 oral tablet, 1 Tab, Oral, Q4H, PRN Percocet 5/325 oral tablet, 2 Tab, Oral, Q4H, PRN Multivitamins oral tablet, 1 Tab, Oral, Daily Senokot S, 1 Tab, Oral, BID Tucks 50% topical pad, 1 Each, Topical, See Comment, PRN Home ergocalciferol 50,000 intl units (1.25 mg) oral capsule Misc Prescription Multivitamins, Oral, Daily Problem List/Past Medical History Ongoing Abdominal pain Anxiety MTHFR mutation Historical No qualifying data Lab Results SEP 18 05:33 \ L 10.7 / H 13.6 299 / L 32.0 \ Electronically signed by Dina, [facility] Conversion Agent Spa Desk Cerner at 11/19/2022 12:24 PM CDT documented in this encounter Plan of Treatment Not on file documented as of this encounter Visit Diagnoses Not on filedocumented in this encounter
--- OUTSIDE RECORDS SUMMARY | 2025-02-19 10:56 | XMS_ITS | Encounter Summary ---
Author Organization [employer] ([place], [place], [place], [place]) Address [address] [place] [address] Care Team Providers Care Customer Relations Assistant Name Role Phone Unavailable Primary Care Provider Unavailabl e Encounter Details Date Type Department Care Team (Late st Contact Info) Description 09/19/[address] [facility] [place] [address] ProviderHa MD [address] [place] [id number] Social History Tobacco Use Types Packs/Day [...] Conversion Note - Ha ProviderMD - 09/19/2019 11:24 AM [employer] [place] [address] NU MERLYNBETHANY RIVAS :1990 Visit Time:09/17/2019 Your Visit Summary Your Care Team Admitting Physician - RUBY YEAGER MD-OBG Attending Physician - RUBY YEAGER MD-OBG Primary Care Physician - RUBY YEAGER MD-OBG Referring Physician - RUBY YEAGER MD-OBG Your Diagnosis Encounter for supervision of normal first , unspecified trimester, Encounter for supervision of normal first , unspecified trimester Spontaneous vaginal delivery What to do next Instructions From Your Care Team Diet after Discharge: Regular diet as tolerated, _, _ Fluid Restriction after Discharge: _ Activity after Discharge: As tolerated, Rest and relax today, No strenuous activity Lifting Restrictions: _ Weight Bearing: _ Bedrest: _ Driving after Discharge: Do not drive May Return to Work/School: Showering/Bathing: _, _ Notify Provider of: Wound/Incision Care after Discharge: _, _ Medical Equipment for Home Use: Home Health Services: Community Services: Discharge Activity: Discharge Activity: Activity as tolerated Diet: Discharge Diet: Resume usual diet as tolerated Follow-Up Appointments Follow Up with DIANNE YAÑEZ When Within 2 to 4 weeks Comments ppd screeningCall for follow up appointment Where: Medications What How Much When Instructions Next Dose ibuprofen (ibuprofen 800 mg oral tablet) 1 Tablet(s) Oral Every 8 Hours Pickup at [id number] ergocalciferol (ergocalciferol 50,000 intl units (1.25 mg) oral capsule) multivitamin, ( Multivitamins) Oral Every Day Non Formulary (Misc Prescription) Pharmacy Information [id number]: [address] [place], [place] [id number] [phone] Take your medications faithfully. Do NOT skip medication. Do NOT stop taking medications without the direction of a physician. Carry a list of your medications with you at all times, and take this medication list with you to your first follow up visit. Report any side effects. Avoid herbal remedies unless discussed with your physician. As part of your treatment plan, your physician may have prescribed a limited course of a controlled substance. This medication may be given to help people with moderate or severe pain or for other medical conditions, but there are risks involved with treatment. Common side effects may include nausea, constipation, drowsiness, sweating, itching, dry mouth, and rash. More serious side effects may include cognitive and motor impairment, like problems with thinking, concentrating, alertness, and movement (e.g. slowed reflexes), and driving and operating heavy machinery can be dangerous. It is important for you to talk to your physician if you have these side effects or questions. These controlled substances can produce physical dependence and be habit-forming if taken for an extended period of time, which means that the body has gotten used to them and may experience withdrawal symptoms if they are abruptly stopped. Withdrawal symptoms can include runny nose, sweating, goose bumps, diarrhea, abdominal cramping, rapid heartbeat, difficulty sleeping, and nervousness. Please dispose of unused and medications per your retail pharmacy guidance. Allergies No Known Allergies Immunizations This Visit No Immunizations Found Education Materials Vaginal Delivery, Care After Refer to this [...] these instructions at home: Medicines ??? Take keqg-sqq-fsxlnho and prescription medicines only as told by [...] 07/19/2001 Document Revised: 01/02/2017 Document Reviewed: 08/05/2016 [employer] Patient Education ?? 2019 [employer]. ibuprofen (EYE bue PROE fen) Advil, Genpril, IBU, Midol IB, Motrin IB, Proprinal, Smart Sense Children's Ibuprofen What is the most important information I should know about ibuprofen? Ibuprofen can increase your risk of fatal heart attack or stroke, especially if you use it usp or take high doses, or if you have heart disease. Do not use this medicine just before or after heart bypass surgery (coronary artery bypass graft, or CABG). Ibuprofen may also cause stomach or intestinal bleeding, which can be fatal. These conditions can occur without warning while you are using ibuprofen, especially in older adults. What is ibuprofen? Ibuprofen is a nonsteroidal anti-inflammatory drug (NSAID). Ibuprofen works by reducing hormones that cause inflammation and pain in the body. Ibuprofen is used to reduce fever and treat pain or inflammation caused by many conditions such as headache, toothache, back pain, arthritis, menstrual cramps, or minor injury. This medicine is used in adults and children who are at least 6 months old. Ibuprofen may also be used for purposes not listed in this medication guide. What should I discuss with my healthcare provider before taking ibuprofen? Ibuprofen can increase your risk of fatal heart attack or stroke, especially if you use it terminal gauger or take high doses, or if you have heart disease. Even people without heart disease or risk factors could have a stroke or heart attack while taking this medicine. Do not use this medicine just before or after heart bypass surgery (coronary artery bypass graft, or CABG). Ibuprofen may also cause stomach or intestinal bleeding, which can be fatal. These conditions can occur without warning while you are using ibuprofen, especially in older adults. You should not use ibuprofen if you are allergic to it, or if you have ever had an asthma attack or severe allergic reaction after taking aspirin or an NSAID. Ask a doctor or pharmacist if it is safe for you to take this medicine if you have: ?? heart disease, high blood pressure, high cholesterol, diabetes, or if you smoke; ?? a history of heart attack, stroke, or blood clot; ?? a history of stomach ulcers or bleeding; ?? asthma; ?? liver or kidney disease; ?? fluid retention; or ?? a connective tissue disease such as Marfan syndrome, Sjogren's syndrome, or lupus. Taking ibuprofen during the last 3 months of may harm the unborn baby. Do not use this medicine without a doctor's advice if you are . It is not known whether ibuprofen passes into breast milk or if it could affect a nursing baby. Ask a doctor before using this medicine if you are . Do not give ibuprofen to a child younger than 2 years old without the advice of a doctor. How should I take ibuprofen? Use exactly as directed on the label, or as prescribed by your doctor. Do not use in larger amounts or for longer than recommended. Use the lowest dose that is effective in treating your condition. Do not take more than your recommended dose. An ibuprofen overdose can damage your stomach or intestines. The maximum amount of ibuprofen for adults is 800 milligrams per dose or 3200 mg per day (4 maximum doses). Use only the smallest amount of ibuprofen needed to get relief from your pain, swelling, or fever. A child's dose of ibuprofen is based on the age and weight of the child. Carefully follow the dosing instructions provided with children's ibuprofen for the age and weight of your child. Ask a doctor or pharmacist if you have questions. Take ibuprofen with food or milk to lessen stomach upset. Shake the oral suspension (liquid) well just before you measure a dose. Measure liquid medicine with the dosing syringe provided, or with a special dose-measuring spoon or medicine cup. If you do not have a dose-measuring device, ask your pharmacist for one. The ibuprofen chewable tablet must be chewed before you swallow it. If you use this medicine long-term, you may need frequent medical tests. Store at room temperature away from moisture and heat. Do not allow the liquid medicine to freeze. Read all patient information, medication guides, and instruction sheets provided to you. Ask your doctor or pharmacist if you have any questions. What happens if I miss a dose? Since ibuprofen is used when needed, you may not be on a dosing schedule. If you are on a schedule, use the missed dose as soon as you remember. Skip the missed dose if it is almost time for your next scheduled dose. Do not use extra medicine to make up the missed dose. What happens if I overdose? Seek emergency medical attention or call the Poison Help line at . Overdose symptoms may include nausea, vomiting, stomach pain, drowsiness, black or bloody stools, coughing up blood, shallow breathing, fainting, or coma. What should I avoid while taking ibuprofen? Avoid drinking alcohol. It may increase your risk of stomach bleeding. Avoid taking aspirin while you are taking ibuprofen. Avoid taking ibuprofen if you are taking aspirin to prevent stroke or heart attack. Ibuprofen can make aspirin less effective in protecting your heart and blood vessels. If you must use both medications, take the ibuprofen at least 8 hours before or 30 minutes after you take the aspirin (non-enteric coated form). Ask a doctor or pharmacist before using any cold, allergy, or pain medicine. Many medicines available over the counter contain aspirin or other medicines similar to ibuprofen. Taking certain products together can cause you to get too much of this type of medication. Check the label to see if a medicine contains aspirin, ibuprofen, ketoprofen, or naproxen. What are the possible side effects of ibuprofen? Get emergency medical help if you have signs of an allergic reaction: sneezing, runny or stuffy nose; wheezing or trouble breathing; hives; swelling of your face, lips, tongue, or throat. Get emergency medical help if you have signs of a heart attack or stroke: chest pain spreading to your jaw or shoulder, sudden numbness or weakness on one side of the body, slurred speech, leg swelling, feeling short of breath. Stop using ibuprofen and call your doctor at once if you have: ?? changes in your vision; ?? shortness of breath (even with mild exertion); ?? swelling or rapid weight gain; ?? the first sign of any skin rash, no matter how mild; ?? signs of stomach bleeding--bloody or tarry stools, coughing up blood or vomit that looks like coffee grounds; ?? liver problems--nausea, upper stomach pain, itching, tired feeling, flu-like symptoms, loss of appetite, dark urine, torrey-colored stools, jaundice (yellowing of the skin or eyes); ?? kidney problems--little or no urinating, painful or difficult urination, swelling in your feet or ankles, feeling tired or short of breath; ?? low red blood cells (anemia)--pale skin, feeling light-headed or short of breath, rapid heart rate, trouble concentrating; or ?? severe skin reaction--fever, sore throat, swelling in your face or tongue, burning in your eyes, skin pain followed by a red or purple skin rash that spreads (especially in the face or upper body) and causes blistering and peeling. Common side effects may include: ?? nausea, vomiting, gas; ?? bleeding; or ?? dizziness, headache. This is not a complete list of side effects and others may occur. Call your doctor for medical advice about side effects. You may report side effects to FDA at 9-613-CKU-5423. What other drugs will affect ibuprofen? Ask your doctor before using ibuprofen if you take an antidepressant such as citalopram, escitalopram, fluoxetine (Prozac), fluvoxamine, paroxetine, sertraline (Zoloft), trazodone, or vilazodone. Taking any of these medicines with an NSAID may cause you to bruise or bleed easily. Ask a doctor or pharmacist if it is safe for you to use ibuprofen if you are also using any of the following drugs: ?? cyclosporine; ?? pemetrexed; ?? lithium; ?? methotrexate; ?? a blood thinner (warfarin, Coumadin, Jantoven); ?? heart or blood pressure medication, including a diuretic or 'water pill'; or ?? steroid medicine (such as prednisone). This list is not complete. Other drugs may interact with ibuprofen, including prescription and uhqd-aaq-iwppflb medicines, vitamins, and herbal products. Not all possible interactions are listed in this medication guide. Where can I get more information? Your pharmacist can provide more information about ibuprofen. Remember, keep this and all other medicines out of the reach of children, never share your medicines with others, and use this medication only for the indication prescribed. Every effort has been made to ensure that the information provided by [employer]. ('tu.nrtum') is accurate, up-to-date, and complete, but no guarantee is made to that effect. Drug information contained herein may be time sensitive. [employer] information has been compiled for use by healthcare practitioners and consumers in the [place] and therefore [employer] does not warrant that uses outside of the [place] are appropriate, unless specifically indicated otherwise. [employer] drug information does not endorse drugs, diagnose patients or recommend therapy. [employer] drug information is an informational resource designed to assist licensed healthcare practitioners in caring for their patients and/or to serve consumers viewing this service as a supplement to, and not a substitute for, the expertise, skill, knowledge and judgment of healthcare practitioners. The absence of a warning for a given drug or drug combination in no way should be construed to indicate that the drug or drug combination is safe, effective or appropriate for any given patient. [employer] does not assume any responsibility for any aspect of healthcare administered with the aid of information [employer] provides. The information contained herein is not intended to cover all possible uses, directions, precautions, warnings, drug interactions, allergic reactions, or adverse effects. If you have questions about the drugs you are taking, check with your doctor, nurse or pharmacist. Copyright 2880-7493 [place] [facility] Version: 19.01. Revision Date: 03/17/2019. Emergency Awareness and Preventative Care STROKE is an EMERGENCY Every Minute Counts Act FAST and Check for these signs: FACE Does the face look uneven? ARM Does one arm drift down? SPEECH Does their speech sound strange? TIME Call at any sign of stroke Stroke Risk Factors Atrial Fibrillation (irregular heartbeat) Diabetes Family history of stroke Heart Disease Heavy alcohol use High Blood Pressure High Cholesterol Physical inactivity and obesity Smoking Cigarette Smoking The facts are clear, cigarette smoking will shorten your life. Smoking can cause many illnesses along the way. As a healthcare provider, we recommend that you stop smoking. Assistance with quitting is available by contacting 2-302-LQZM-NOW. This is a free resource providing counseling, support, and referral. Or you may contact your personal physician. National Suicide Prevention Lifeline: The National Suicide Prevention Lifeline is a national network of local crisis centers that provides free and confidential emotional support to people in suicidal crisis or emotional distress 24 hours a day, 7 days a week. Don't Wait! Stop a Heart Attack Before it Starts What is a heart attack? A heart attack is damage or to a part of the heart from severely decreased or lack of blood flow to the heart. Over time, arteries can become narrow from the buildup of fat and cholesterol, which is called plaque. The plaque can rupture causing a blood clot to form. When the blood clot forms, the artery can become severely narrowed or completely blocked, causing a heart attack. Heart attack is the leading cause of in the [place]. 85% of muscle damage occurs within the first 2 hours. Delay in the recognition of heart attack symptoms increases the chances of . Know the early symptoms of a heart attack: Nausea Feeling of fullness in chest Jaw Pain Pain that travels down one or both arms Fatigue/being tired Anxiety Back Pain Chest pressure, squeezing, or discomfort Shortness of breath Sweating, or a cold sweat Feeling of impending doom There are unusual signs of a heart attack, too! Women, the elderly, and diabetics may present with atypical symptoms: Fainting/dizziness Weakness Confusion Risk Factors for a Heart Attack Some heart disease risk factors, such as age and family history, cannot be changed. Others, like smoking and lack of exercise, can be changed. Smoking High Cholesterol High Blood Pressure Family History Obesity Age Gender (Males are at higher risk) Lack of Exercise Diabetes Diet Stress Excessive Alcohol Intake If you or someone you know is experiencing the signs and symptoms of a heart attack, DON???T DELAY. Call immediately and seek help. If someone collapses, perform CPR! Do not attempt to drive if you are having symptoms of heart attack. Hands-Only CPR Why Hands-Only CPR? Hands-Only CPR has been shown to be as effective as conventional CPR for cardiac arrests that occur outside of a hospital. Survival depends on immediately receiving CPR from someone nearby. How do you perform Hands-Only CPR? There are two easy steps: Call if you see a teen or adult collapse Push hard and fast in the center of the chest at a beat of 100 beats per minute. Save a life! 4 WAYS TO GET AHEAD OF SEPSIS SEPSIS is a MEDICAL EMERGENCY. Time matters! Infections put you and your family at risk for a life-threatening condition called sepsis. Sepsis is the body's extreme response to an infection. It is life-threatening, and without timely treatment, sepsis can rapidly lead to tissue damage, organ failure, and . Sepsis happens when an infection you already have-in your skin, lungs, urinary tract or somewhere else-triggers a chain reaction throughout your body. 1 PREVENT INFECTIONS Take good care of chronic conditions. Talk to your doctor about getting the recommended vaccines. 2 PRACTICE GOOD HYGIENE Wash your hands frequently. Keep cuts or open sores clean and covered until they are healed. 3 KNOW THE SYMPTOMS Confusion or disorientation Shortness of breath High heart rate Fever, shivering, or feeling very cold Extreme pain or discomfort Clammy or sweaty skin 4 ACT FAST Get medical care IMMEDIATELY if you suspect sepsis or if you have an infection that is not getting better or is getting worse. To learn more about sepsis and how to prevent infections, visit www.cdc.gov/sepsis. Test Results Laboratory or Other Results This Visit (last charted value for your 09/17/2019 visit) Blood Gases 09/17/2019 1:18 PM BE Art Umb: -6 mmol/L HCO3 Art Umb: 21 mmol/L pCO2 Art Umb: 47 mmHg sO2 Art Umb: 56 % pO2 Art Umb: 25 mmHg pH Art Umb: 7.26 Hematology 09/18/2019 5:33 AM WBC: 13.6 K/uL -- Normal range between ( 3.9 and 10.0 ) RBC: 3.36 Million/uL -- Normal range between ( 3.93 and 5.22 ) Hct: 32.0 % -- Normal range between ( 34.1 and 44.9 ) Hgb: 10.7 Gram/dL -- Normal range between ( 11.2 and 15.7 ) Platelet Count: 299 K/uL -- Normal range between ( 163 and 369 ) MCH: 31.8 pg -- Normal range between ( 25.6 and 32.2 ) MCHC: 33.4 Gram/dL -- Normal range between ( 32.3 and 36.5 ) MCV: 95.2 fL -- Normal range between ( 79.0 and 94.8 ) Slide Review: No RDW: 14.4 % -- Normal range between ( 11.6 and 14.4 ) MPV: 9.5 fL -- Normal range between ( 9.4 and 12.4 ) 09/17/2019 9:13 AM Eos %: 0.9 % -- Normal range between ( 1.0 and 7.0 ) [place] #: 0.59 K/uL -- Normal range between ( 0.24 and 0.82 ) Eos #: 0.13 K/uL -- Normal range between ( 0.04 and 0.54 ) [place] %: 4.3 % -- Normal range between ( 4.7 and 12.5 ) Baso %: 0.2 % -- Normal range between ( 0.0 and 1.0 ) Baso #: 0.03 K/uL -- Normal range between ( 0.01 and 0.08 ) Neut %: 79.0 % -- Normal range between ( 34.0 and 71.0 ) Neut #: 10.85 K/uL -- Normal range between ( 1.56 and 6.13 ) Lymph %: 14.9 % -- Normal range between ( 19.3 and 53.0 ) Lymph #: 2.05 K/uL -- Normal range between ( 1.18 and 3.74 ) IG#: 0 x10(3)/uL IG%: 1 % -- Normal range between ( 0 and 1 ) Urinalysis 09/17/2019 9:13 AM Ur RBC: 0-2 /HPF Urine Nitrite: Negative Urine Leukocyte Esterase: Negative Urine Appearance: Cloudy Urine Glucose Dipstick: Negative Urine Blood Dipstick: Negative Urine Urobilinogen Dipstick: 0.2 EU/dL -- Normal range between ( 0.2 and 1.0 ) Urine Protein Dipstick: Negative Ur Bacteria: 1+ Ur Squamous Epithelial Cells: 10-20 /HPF Urine Color: Yellow Ur WBC: 2-5 /HPF Urine Ketones Dipstick: Negative Ur Mucous: Trace Urine pH Dipstick: 6.0 -- Normal range between ( 6.0 and 8.0 ) Urine Bilirubin Dipstick: Negative Urine Specific [place]: 1.015 -- Normal range between ( 1.005 and 1.030 ) Urine Type.: [facility] 09/17/2019 9:13 AM ABO/Rh: A POS Antibody Screen (Tube): Negative ABSC Toxicology 09/17/2019 9:13 AM UDS Amp: Negative UDS Estefani: Negative UDS Benzo: Negative UDS Sophia: Negative UDS Meth: Negative UDS Opi: Negative UDS Oxy: Negative UDS PCP: Negative UDS TCA: Negative UDS THC: Negative Buprenorphine Screen, Urine: Negative Heroin Metab (6AM) by LC-MS/MS, Urine: Negative SpGravity, Urine: 1.017 Propoxyphene, Urine: Negative UDS pH: 6.3 UDS Creatinine, Toxicology: 92.8 mg/dL Patient Name:MERLYN MARKS I have received and understand this information and was given the opportunity to ask questions. Patient/Return Agent Airport Name: Patient/Return Agent Airport Signature: Relationship to Patient: Clinician/Hospital Return Agent Airport Signature: Date: Electronically signed by Interface, [facility] Conversion Button And Buckle Maker [place] at 11/19/2022 12:24 PM CDT documented in this encounter Plan of Treatment Not on file documented as of this encounter Visit Diagnoses Not on filedocumented in this encounter
--- OUTSIDE RECORDS SUMMARY | 2025-02-19 10:56 | XMS_ITS | Encounter Summary ---
Author Organization [employer] ([place], [place], [place], [place]) Address [address] [place] [address] Care Team Providers Care Heading Pinner Name Role Phone Unavailable Primary Care Provider Unavailabl e Encounter Details Date Type Department Care Team (Late st Contact Info) Description 09/18/[address] [facility] [place] [facility] [place] [address] ProviderHa MD [address] [place] [address] [id number] Social History Tobacco Use Types Packs/Day Years [...] Conversion Note - Historical ProviderMD - 09/18/2019 2:42 AM [employer] Teacher Details Entered On: 09/18/2019 2:43 EST Performed On: 09/18/2019 2:42 EST by Adrianna Alvarado, RN Order Details Transport Mode Order Detail : Wheelchair Isolation Precautions Order Detail : Standard Precautions Order Detail : 0 IV Order Detail : 0 Oxygen Order Detail : 0 Nurse Collect Order Detail : 0 Lift/Transfer : Minimal Central Line Order Detail : No Room Service : Appropriate Arterial Line : No Adrianna Alvarado, RN - 09/18/2019 2:42 EST Electronically signed by Dina [facility] Conversion Umbrella Cutter Cerner at 11/19/2022 12:13 PM CDT documented in this encounter Plan of Treatment Not on file documented as of this encounter Visit Diagnoses Not on filedocumented in this encounter
--- OUTSIDE RECORDS SUMMARY | 2025-02-19 10:56 | XMS_ITS | Encounter Summary ---
Author Organization [employer] ([place], [place], [place], [place]) Address [address] [place] [address] Care Team Providers Care Online Banking Specialist Name Role Phone Unavailable Primary Care Provider Unavailabl e Encounter Details Date Type Department Care Team (Late st Contact Info) Description 07/18/2019 Transcribed Document [facility] [place] Family Medicine [address] [place] [address] ProviderHa MD [address] [place], [place] [id number] Social History Tobacco Use Types Packs/Day Years Used Date Smoking Tobacco: Never Assessed Comments Unknown Sex and Gender Information Value Date Recorded Sex Assigned at Female 01/30/2022 6:43 PM CDT Legal Sex Female 6:43 PM CDT Gender Identity Female 01/30/2022 6:43 PM CDT Sexual Orientation Not on file documented as of this encounter Miscellaneous Notes * Cerner Conversion Note - Ha ProviderMD - 07/18/2019 7:24 PM CYLINDER SANDER OPERATOR Stroke/Warfarin Instructions Entered On: 07/18/2019 19:24 EST Performed On: 07/18/2019 19:24 EST by SHILA OCASIO RN Stroke/Warfarin Instructions Stroke/TIA Discharge Ins : N/A Warfarin Discharge Ins : N/A SHILA OCASIO RN - 07/18/2019 19:24 EST Electronically signed by Dina [facility] Conversion Electric Motor Assembler Cerner at 11/19/2022 12:18 PM CDT documented in this encounter Plan of Treatment Not on file documented as of this encounter Visit Diagnoses Not on filedocumented in this encounter
--- OUTSIDE RECORDS SUMMARY | 2025-02-19 10:56 | XMS_ITS | Encounter Summary ---
Author Organization [employer] ([place], [place], [place], [place]) Address [address] [place] [address] Care Team Providers Care Maintenance Machine Repairer Name Role Phone Unavailable Primary Care Provider Unavailabl e Encounter Details Date Type Department Care Team (Late st Contact Info) Description 07/18/2019 Transcribed Document [facility] [place] Family Medicine [facility] [place] [address] ProviderHa MD [address] [place] [id number] Social History Tobacco Use Types Packs/Day [...] Conversion Note - Ha Dempsey MD - 07/18/2019 7:26 PM ALLERGIST/[place] [address] NU MERLYN GAIL :1990 Visit Time:07/18/2019 Your Visit Summary Your Care Team Admitting Physician - RUBY YEAGER MD-OBG Attending Physician - RUBY YEAGER MD-OBG Primary Care Physician - MARIANO HAMILTON DR Referring Physician - RUBY YEAGER MD-OBG Your Diagnosis 30 weeks gestation of Nausea vomiting and diarrhea Ketonuria Dehydration during Discharge Vitals Temperature 36.8 ??C Respiratory Rate 18 Blood Pressure 113/65 What to do next Follow-Up Appointments Follow Up with DIANNE YAÑEZ APRN When Within 2 to 3 days Where: Medications What How Much When Instructions Next Dose enoxaparin (enoxaparin 40 mg/ 0.4 mL injectable solution) ergocalciferol (ergocalciferol 50,000 intl units (1.25 mg) oral capsule) Non Formulary (Misc Prescription) multivitamin, ( Multivitamins) Every Day Take your medications faithfully. Do NOT skip [...] medications per your retail pharmacy guidance. Allergies Lortab (nausea) Immunizations This Visit No Immunizations Found Education Materials Abdominal Pain During Abdominal pain is common during , and has many possible causes. Some causes are more serious than others, and sometimes the cause is not known. Abdominal pain can be a sign that labor is starting. It can also be caused by normal growth and stretching of muscles and ligaments during . Always tell your health care provider if you have any abdominal pain. Follow these instructions at home: ??? Do not have sex or put anything in your vagina until your pain goes away completely. ??? Get plenty of rest until your pain improves. ??? Drink enough fluid to keep your urine pale yellow. ??? Take vncj-isp-wfhzwev and prescription medicines only as told by your health care provider. ??? Keep all follow-up visits as told by your health care provider. This is important. Contact a health care provider if: ??? Your pain continues or gets worse after resting. ??? You have lower abdominal pain that: ? Comes and goes at regular intervals. ? Spreads to your back. ? Is similar to menstrual cramps. ??? You have pain or burning when you urinate. Get help right away if: ??? You have a fever or chills. ??? You have vaginal bleeding. ??? You are leaking fluid from your vagina. ??? You are passing tissue from your vagina. ??? You have vomiting or diarrhea that lasts for more than 24 hours. ??? Your baby is moving less than usual. ??? You feel very weak or faint. ??? You have shortness of breath. ??? You develop severe pain in your upper abdomen. Summary ??? Abdominal pain is common during , and has many possible causes. ??? If you experience abdominal pain during , tell your health care provider right away. ??? Follow your health care provider's home care instructions and keep all follow-up visits as directed. This information is not intended to replace advice given to you by your health care provider. Make sure you discuss any questions you have with your health care provider. Document Released: 07/22/2006 Document Revised: 10/24/2017 Document Reviewed: 10/24/2017 [employer] Patient Education ?? 2019 [employer] Nausea, Adult Feeling sick to your stomach (nausea) means that your stomach is upset or you feel like you have to throw up (vomit). Feeling sick to your stomach is usually not serious, but it may be an early sign of a more serious medical problem. As you feel sicker to your stomach, it can lead to throwing up (vomiting). If you throw up, or if you are not able to drink enough fluids, there is a risk of dehydration. Dehydration can make you feel tired and thirsty, have a dry mouth, and pee (urinate) less often. Older adults and people who have other diseases or a weak defense (immune) system have a higher risk of dehydration. The main goal of treating this condition is to: ??? Limit how often you feel sick to your stomach. ??? Prevent throwing up and dehydration. Follow these instructions at home: Follow instructions from your doctor about how to care for yourself at home. Eating and drinking Follow these recommendations as told by your doctor: ??? Take an oral rehydration solution (ORS). This is a drink that is sold at pharmacies and stores. ??? Drink clear fluids in small amounts as you are able, such as: ? Water. ? Ice chips. ? Fruit juice that has water added (diluted fruit juice). ? Low-calorie sports drinks. ??? Eat bland, easy to digest foods in small amounts as you are able, such as: ? Bananas. ? Applesauce. ? Rice. ? Lean meats. ? [place]. ? Crackers. ??? Avoid drinking fluids that contain a lot of sugar or caffeine. ??? Avoid alcohol. ??? Avoid spicy or fatty foods. General instructions ??? Drink enough fluid to keep your pee (urine) clear or pale yellow. ??? Wash your hands often. If you cannot use soap and water, use hand barbering instructor. ??? Make sure that all people in your household wash their hands well and often. ??? Rest at home while you get better. ??? Take hpav-ldf-hlerumc and prescription medicines only as told by your doctor. ??? Breathe slowly and deeply when you feel sick to your stomach. ??? Watch your condition for any changes. ??? Keep all follow-up visits as told by your doctor. This is important. Contact a doctor if: ??? You have a headache. ??? You have new symptoms. ??? You feel sicker to your stomach. ??? You have a fever. ??? You feel light-headed or dizzy. ??? You throw up. ??? You are not able to keep fluids down. Get help right away if: ??? You have pain in your chest, neck, arm, or jaw. ??? You feel very weak or you pass out (faint). ??? You have throw up that is bright red or looks like coffee grounds. ??? You have bloody or black poop (stools), or poop that looks like tar. ??? You have a very bad headache, a stiff neck, or both. ??? You have very bad pain, cramping, or bloating in your belly. ??? You have a rash. ??? You have trouble breathing or you are breathing very quickly. ??? Your heart is beating very quickly. ??? Your skin feels cold and clammy. ??? You feel confused. ??? You have pain while peeing. ??? You have signs of dehydration, such as: ? Dark pee, or very little or no pee. ? Cracked lips. ? Dry mouth. ? Sunken eyes. ? Sleepiness. ? Weakness. These symptoms may be an emergency. Do not wait to see if the symptoms will go away. Get medical help right away. Call your local emergency services (911 in the [place] Do not drive yourself to the hospital. This information is not intended to replace advice given to you by your health care provider. Make sure you discuss any questions you have with your health care provider. Document Released: 07/10/2012 Document Revised: 12/27/2016 Document Reviewed: 03/27/2016 [employer] Interactive Patient Education ?? 2019 [employer] Emergency Awareness and Preventative Care STROKE is [...] Assistance with quitting is available by contacting 2-951-YPRO-NOW. This is a free resource providing counseling, [...] This Visit (last charted value for your 07/18/2019 visit) Hematology 07/18/2019 6:21 PM WBC: 10.6 K/uL -- Normal range between ( 3.9 and 10.0 ) RBC: 3.40 Million/uL -- Normal range between ( 3.93 and 5.22 ) Hct: 31.6 % -- Normal range between ( 34.1 and 44.9 ) Hgb: 11.0 Gram/dL -- Normal range between ( 11.2 and 15.7 ) Platelet Count: 257 K/uL -- Normal range between ( 163 and 369 ) MCH: 32.4 pg -- Normal range between ( 25.6 and 32.2 ) MCHC: 34.8 Gram/dL -- Normal range between ( 32.3 and 36.5 ) MCV: 92.9 fL -- Normal range between ( 79.0 and 94.8 ) Slide Review: No Eos %: 0.1 % -- Normal range between ( 1.0 and 7.0 ) Island #: 0.38 K/uL -- Normal range between ( 0.24 and 0.82 ) Eos #: 0.01 K/uL -- Normal range between ( 0.04 and 0.54 ) Island %: 3.6 % -- Normal range between ( 4.7 and 12.5 ) Baso %: 0.1 % -- Normal range between ( 0.0 and 1.0 ) Baso #: 0.01 K/uL -- Normal range between ( 0.01 and 0.08 ) RDW: 13.5 % -- Normal range between ( 11.6 and 14.4 ) Neut %: 88.8 % -- Normal range between ( 34.0 and 71.0 ) Neut #: 9.41 K/uL -- Normal range between ( 1.56 and 6.13 ) Lymph %: 6.7 % -- Normal range between ( 19.3 and 53.0 ) Lymph #: 0.71 K/uL -- Normal range between ( 1.18 and 3.74 ) MPV: 8.9 fL -- Normal range between ( 9.4 and 12.4 ) IG#: 0 x10(3)/uL IG%: 1 % -- Normal range between ( 0 and 1 ) Urinalysis 07/18/2019 6:21 PM Ur RBC: 0-2 /HPF Urine Nitrite: Negative Urine Leukocyte Esterase: Negative Urine Appearance: Clear Urine Glucose Dipstick: Negative Urine Blood Dipstick: Negative Urine Urobilinogen Dipstick: 1.0 EU/dL -- Normal range between ( 0.2 and 1.0 ) Urine Protein Dipstick: 30 Ur Bacteria: 2+ Ur Squamous Epithelial Cells: 10-20 /HPF Urine Color: DK YELLOW Ur WBC: 0-2 /HPF Urine Ketones Dipstick: >=80 Ur Mucous: 2+ Urine pH Dipstick: 6.0 -- Normal range between ( 6.0 and 8.0 ) Urine Bilirubin Dipstick: Small Urine Specific [place]: 1.034 -- Normal range between ( 1.005 and 1.030 ) Urine Type.: U CleanCatch Toxicology 07/18/2019 6:21 PM UDS Amp: Negative UDS Estefani: Negative UDS Benzo: Negative UDS Sophia: Negative UDS Meth: Negative UDS Opi: Negative UDS Oxy: Negative UDS PCP: Negative UDS TCA: Negative UDS THC: Negative Buprenorphine Screen, Urine: Negative Heroin Metab (6AM) by LC-MS/MS, Urine: Negative SpGravity, Urine: 1.026 Propoxyphene, Urine: Negative UDS pH: 6.2 UDS Creatinine, Toxicology: 192.2 mg/dL Patient Name:MERLYN MARKS I have received and understand this information and was given the opportunity to ask questions. Patient/Strategic Partnership Representative Name: Patient/Strategic Partnership Representative Signature: Relationship to Patient: Clinician/Hospital Strategic Partnership Representative Signature: Date: documented in this encounter Plan of Treatment Not on file documented as of this encounter Visit Diagnoses Not on filedocumented in this encounter
--- OUTSIDE RECORDS SUMMARY | 2025-02-19 10:56 | XMS_ITS | Encounter Summary ---
Author Organization [employer] ([place], [place], [place], [place]) Address [address] [place] [address] Care Team Providers Care Manager Of Marketing Name Role Phone Unavailable Primary Care Provider Unavailabl e Encounter Details Date Type Department Care Team (Late st Contact Info) Description 07/18/2019 Transcribed Document [facility] [place] Family Medicine [facility] [place] [address] ProviderHa MD [address] [place] [id number] Social History Tobacco Use Types Packs/Day Years [...] Conversion Note - Ha ProviderMD - 07/18/2019 7:25 PM WELDER [employer] Nursing Discharge Summary Entered On: 07/18/2019 19:26 EST Performed On: 07/18/2019 19:25 EST by SHILA OCASIO animal hospital clerk Documentation Discharge Date/Time : 07/18/2019 19:35 EST Patient Disposition, General : Discharge Discharge To : Other: home Mode Of Departure, General Discharge : Ambulatory Accompanied By, Discharge : Mother IV Discontinued : Yes Medications Given to Patient : Yes Personal Belongings With Patient : Yes Prescriptions Given to Patient : Yes Discharge Instructions Reviewed With, Opportunity For Questions Given : Patient Patient Education Completed : No Number of Prescriptions Given : 1 Number of Medications Given : 2 Teaching Method : Printed materials Teaching Evaluation : Verbalizes understanding SHILA OCASIO RN - 07/18/2019 19:25 EST Electronically signed by Dina, [facility] Conversion Tire Manager Cerner at 11/19/2022 12:19 PM CDT documented in this encounter Plan of Treatment Not on file documented as of this encounter Visit Diagnoses Not on filedocumented in this encounter
--- OUTSIDE RECORDS SUMMARY | 2025-02-19 10:56 | XMS_ITS | Encounter Summary ---
Author Organization [employer] ([place], [place], [place], [place]) Address [address] [place] [address] Care Team Providers Care Clarification Operator Name Role Phone Unavailable Primary Care Provider Unavailabl e Encounter Details Date Type Department Care Team (Late st Contact Info) Description 09/18/2019 Transcribed Document [facility] [place] Medicine Counts include [facility] beds at [facility] [address] ProviderHa MD [address] [place] [id number] Social History Tobacco Use Types Packs/Day Years [...] Conversion Note - Historical ProviderMD - 09/18/2019 5:00 AM RADIATION OFFICER Chart Check - Review Order Profile Entered On: 09/18/2019 4:12 EST Performed On: 09/18/2019 5:00 EST by Adrianna Alvarado, RN Chart Check Powerplans Initiated/Discontinued as Appropriate : Yes All Active Orders Reviewed : Yes Adrianna Alvarado, RN - 09/18/2019 4:12 EST documented in this encounter Plan of Treatment Not on file documented as of this encounter Visit Diagnoses Not on filedocumented in this encounter
--- OUTSIDE RECORDS SUMMARY | 2025-02-19 10:56 | XMS_ITS | Clinical Summary ---
Author Organization [employer] ([place], [place], [place], [place]) Address [address] [place] [address] Care Team Providers Care It Application Development Manager Name Role Phone Unavailable Primary Care Provider Unavailabl e Social History Tobacco Use Types Packs/Day Years Used Date Smoking Tobacco: Never Assessed Comments Unknown Sex and Gender Information Value Date Recorded Sex Assigned at Female 01/30/2022 6:43 PM CDT Legal Sex Female 6:43 PM CDT Gender Identity Female 01/30/2022 6:43 PM CDT Sexual Orientation Not on file Plan of Treatment Not on file
--- OUTSIDE RECORDS SUMMARY | 2025-02-19 10:56 | XMS_ITS | Clinical Summary ---
Author Organization [facility] Address [address] [place] [address] [address] Prov[address] Care Court Advocate Name Role Phone Pavel Horvath MD Primary Care Provider + [phone] Allergies Active Allergy Reactions Criticality Noted Date Comments Hydrocodone-Acetaminophen Other - please document in the comment field Low 02/09/2022 vomiting Medications clonazePAM (KlonoPIN) 0.5 MG tablet Take 0.5 mg by mouth 2 (two) times a day. 02/13/2022 Active verapamil SR (Calan-SR) 120 MG ER tablet Take 120 mg by mouth 1 (one) time each day. 02/13/2022 Active Topiramate (TOPAMAX PO) Take by mouth. Active amitriptyline (Elavil) 10 MG tablet TAKE 1 TABLET BY MOUTH EVERYDAY AT BEDTIME 06/21/2022 Active atomoxetine (Strattera) 40 MG capsule Take by mouth 1 (one) time each day. 08/29/2022 Active busPIRone (Buspar) 5 MG tablet Take 5 mg by mouth 2 (two) times a day. 09/04/2022 Active enoxaparin (Lovenox) 40 MG/0.4ML solution prefilled syringe 09/10/2022 Active pregabalin (Lyrica) 50 MG capsule Take 1 capsule (50 mg total) by mouth 3 (three) times a day. 90 capsule 3 09/18/2022 Active Active Problems No known active problems Resolved Problems Problem Noted Date Diagnosed Date Resolved Date Premature rupture of membranes 01/21/2022 01/23/2022 Retained complete placenta 01/20/2022 0 01/23/2022 Overview (01/22/2022): Added automatically from request for surgery [id number] Second trimester 01/18/2022 0 01/23/2022 Social History Tobacco Use Types Packs/Day Years Used Date Smoking Tobacco: Every Day Cigarettes Smokeless Tobacco: Current Tobacco Cessation:Ready to Q uit: Not Asked; Counseling Given: Not Answered Comments:currently vaping Alcohol Use Standard Drinks/Week Comments Never 0 (1 standard drink = 0.6 oz pur e alcohol) PHQ-2 Answer Date Recorded Patient Health Questionnaire-2 Score 0 09/18/2022 [place] Depression Scale Answer Date Recorded [place] Depression Scale Total 20 02/23/2022 The thought [...] drink first t janusz in the morning (EYE-STAFF APPRAISER) to steady your nerves or to get [...] Sign Reading Time Taken Comments Blood Pressure 102/70 09/18/2022 8:55 AM EST Pulse 112 09/18/2022 8:55 AM EST Temperature 36.4 C (97.5 F) 09/18/2022 8:55 AM EST Respiratory Rate 18 01/23/2022 7:50 AM EDT Oxygen Saturation 99% 01/22/2022 6:47 PM EDT Inhaled Oxygen Concentration - - Weight 57.4 kg (126 lb 8.7 oz) 09/18/2022 8:55 A M EST Height 167.6 cm (5' 6 ) 09/18/2022 8:55 AM EST Body Mass Index 20.42 09/18/2022 8:55 AM EST Plan of Treatment Health Maintenance Due Date Last Done Comments [facility]-HIV Screening 1990 [facility]-Hepatitis C Screening 1990 [facility]-Infant/Child/Adol SDOH Screenings 1990 [facility]-IPV Vaccines (2 of 3 - 4-dose series) 04/14/1996 03/17/1996 [facility]-Hepatitis B Vaccines (3 of 3 - 3-dose series) 07/09/2003 05/14/2003, 11/13/2002 [facility]-Varicella Vaccines (1 of 2 - 13+ 2-dose series) 01/07/2005 HPV Vaccines (1 - 3-dose series) 01/07/2007 [facility]- SDOH Screenings 01/07/2010 [facility]-Adult SDOH Screenings 01/07/2010 [facility]-Depression Screening 09/18/2023 023, 02/23/2022 [id number]-08 Vaccine (4 - 2023- season) 2024 05/17/2021, 11/15/2020, 10/24/2020 [facility]-Pap Smear 02/23/2025 02/23/2022 [facility]-Influenza Vaccine (#1) 2025 [facility]-Cervical Cancer Screening 02/23/2027 [facility]-HPV/Cotest 02/23/2027 02/23/2022 [facility]-DTaP,Tdap,and Td Vaccines (4 - Td or Tdap) 08/01/2033 08/01/2023, 11/13/2002, 03/17/1996 [facility]-Zoster Vaccines (1 of 2) 01/07/2042 [facility]-HIB Vaccines Completed 03/17/1996 [facility]-Hepatitis A Vaccines Aged Out No longer eligible based on patient's age to complete this topic [facility]-Pneumococcal Vaccine: Pediatrics (0 to 5 Years) and At-Risk Patients (6 to 49 Years) Aged Out No longer eligible b ased on patient's age to complete this topic [facility]-Rotavirus Vaccines Aged Out No lo nger eligible based on patient's age to complete this topic Procedures Procedure Name Priority Date/Time Associated Diagnosis Comments PAP TEST - CYTOLOGY Routine 02/23/2022 1 1:34 AM EDT Encounter for routine follow-up from Last 3 Months or Most Recently Relevant to Health Maintenance Results * Pap Smear (02/23/2022 11:34 AM EDT) Case Report Cytology Case: [id number] Authorizing Provider: Kathy Dover MD Collected: 02/23/2022 1134 Ordering Location: Medical Office Building Received: 02/23/2022 1134 Obstetrics and Gynecology First Screen: Andres So Specimen: ThinPrep Pap Test, Liquid-Based Cervical/Vaginal, CERVICAL/VAGINAL 03/09/2022 11:12 AM EDT [facility] Interpretation NEGATIVE FOR INTRAEPITHELIAL LESION OR MALIGNANCY 03/09/2022 11:12 AM EDT [facility] at 1112 EDT Specimen Adequacy Satisfactory for evaluation; endocervical/breen sformation zone component present. Slide imaged by the ThinPrep Imaging system and selected 22 gonzalez reviewed then full manual screening. 03/09/2022 11:12 AM EDT [facility] Cervical cytology is a screening test primarily for squamous cancers and precursors and has associated false negative and positive results. New technologies such as liquid based sampling may decrease but will not eliminate all false negative results. Regular screening and follow-up of unexplained clinical signs and symptoms are recommended to minimize false negative results. Please see the ASCCP website (www.asccp.org)fo r followup recommendations. If HPV testing was requested, correlation with the results is suggested (please call Microbiology at [phone] for results). 03/09/2022 11:12 AM EDT [facility] Menstrual Status Post- 022 11:12 AM EDT [facility] Contraceptive History Not Applicable 03/09/2022 11:12 AM EDT [facility] Screening Type Routine Screen 2021 11:12 AM EDT [facility] High Risk? Yes 03/09/2022 11:12 AM EDT [facility] HPV Testing Requested? Request HPV Testing Regardless of Pap Test Findings 03/09/2022 11:12 AM EDT [facility] Previous Cancer History No 03/09/2022 11:12 AM EDT [facility] Clinical Information Z39.2 - Encounter for routine follow-up [ICD-10-CM] 03/09/2022 11:12 AM EDT [facility] Last Menstrual Period 09/23/2021 03/09/2022 11:12 AM EDT [facility] Swab Vaginal and cervical cytologic material / Unknown Non-blood Collection / Unknown 02/23/2022 11:34 AM EDT 02/23/2022 11:34 AM EDT Kathy Dover MD LAB CYTOLOGY ORDERABLES Final Result Performing Organization Address City/State/[facility] Co de Phone Number HEALTHCARE LAB [address] [place] [phone] from Last 3 Months or Most Recently Relevant to Health Maintenance Insurance [facility] MEDICAID Advance Directives * Full Code (Latest Code Status on File) Date Activated Date Inactivated Comments 01/21/2022 3:10 PM 01/23/2022 6:18 PM Question Answer Comments Patient has decision-making capacity? Yes * Full Code Date Activated Date Inactivated Comments 01/18/2022 9:41 PM 01/20/2022 9:32 PM Question Answer Comments Patient has decision-making capacity? Yes Care Teams Court Advocate Relationship Specialty Start Date End Date Pavel Horvath MD [address] [place] [address] PCP - General 01/07/23
--- OUTSIDE RECORDS SUMMARY | 2025-02-19 10:56 | XMS_ITS | Encounter Summary ---
Author Organization [employer] ([place], [place], [place], [place]) Address [address] [place] [address] Care Team Providers Care Oil Burner Repairer Name Role Phone Unavailable Primary Care Provider Unavailabl e Encounter Details Date Type Department Care Team (Late st Contact Info) Description 01/17/2022 Transcribed Document [facility] [place] [facility] [place] [address] ProviderHa MD [address] [place] [address] Social History Tobacco Use Types Packs/Day [...] Conversion Note - Ha ProviderMD - 01/17/2022 9:35 PM CDT [address] [address] NU MERLYNBETHANY RIVAS :1990 Visit Time:01/17/2022 Your Visit Summary Your Care Team Admitting Physician - RUBY YEAGER MD-OBG Attending Physician - RUBY YEAGER MD-OBG Primary Care Physician - MARIANO HAMILTON DR Referring Physician - RUBY YEAGER MD-OBG Your Diagnosis Ruptured, membranes, premature MTHFR mutation Encounter for supervision of normal first , unspecified trimester, Encounter for supervision of normal first , unspecified trimester These Are Your Goals No qualifying data available. Discharge Vitals Temperature 36.7 ??C Respiratory Rate 18 Blood Pressure 124/70 What to do next Instructions From Your Care Team Discharge Activity: Discharge Activity: Activity as tolerated Diet: Discharge Diet: Resume usual diet as tolerated Follow-Up Appointments Follow Up with RUBY YEAGER When Within in AM Where: [address] [place], [place] [id number]- Business (1) Medications What How Much When Instructions Next Dose ergocalciferol (ergocalciferol 50,000 intl units (1.25 mg) oral capsule) multivitamin, ( Multivitamins) Every Day Non Formulary ([facility]) Take your medications faithfully. Do NOT skip [...] This Visit No Immunizations Found Education Materials Prelabor Rupture and Prelabor Rupture of Membranes [...] by your health care provider. ??? Take wmki-ydy-oqibdyp and prescription medicines only as told by [...] provider. Document Revised: 08/11/2020 Document Reviewed: 08/11/2020 [employer]Menu Patient Education ?? 2020 [employer]. Emergency Awareness and Preventative Care STROKE is [...] Assistance with quitting is available by contacting 1-309-VHDE-NOW. This is a free resource providing counseling, [...] This Visit (last charted value for your 01/17/2022 visit) Toxicology 01/17/2022 8:10 PM UDS Amp: Negative UDS Estefani: Negative UDS Benzo: Negative UDS Sophia: Negative UDS Meth: Negative UDS Opi: Negative UDS Oxy: Negative UDS PCP: Negative UDS TCA: Negative UDS THC: Negative Buprenorphine Screen, Urine: Negative Heroin Metab (6AM) by LC-MS/MS, Urine: Negative SpGravity, Urine: 1.009 Propoxyphene, Urine: Negative UDS pH: 6.2 UDS Creatinine, Toxicology: 41.2 mg/dL Maternal Screening 01/17/2022 8:07 PM Amniotic Fluid ROM: Positive Patient Name:MERLYN MARKS I have received and understand this information and was given the opportunity to ask questions. Patient/Production Supervisor Off Shift Name: Patient/Production Supervisor Off Shift Signature: Relationship to Patient: Clinician/Hospital Production Supervisor Off Shift Signature: Date: documented in this encounter Plan of Treatment Not on file documented as of this encounter Visit Diagnoses Not on filedocumented in this encounter
--- OUTSIDE RECORDS SUMMARY | 2025-02-19 10:56 | XMS_ITS | Encounter Summary ---
Author Organization Healthcare Address [address] [place] [address] Care Team Providers Care Client Integration Manager Name Role Phone Pavel Horvath MD Primary Care Provider [phone] Encounter Details Date Type Department Care Team (Late st Contact Info) Description 09/30/2023 Lab Requisition [facility] Lab [address] [place] [address] Anette Crow MD [facility] [place] [address] Encounter for general adult medical examination without abnormal findings Social History Tobacco Use Types Packs/Day Years Used Date Smoking Tobacco: Every Day Cigarettes Smokeless Tobacco: Current Comments:currently vaping Alcohol Use Standard Drinks/Week Comments Never 0 (1 standard drink = 0.6 oz pur e alcohol) PHQ-2 Answer Date Recorded Patient Health Questionnaire-2 Score 0 09/18/2022 [place] Depression Scale Answer Date Recorded [place] Depression Scale Total 20 02/23/2022 The thought [...] drink first t janusz in the morning (EYE-EHS MANAGER) to steady your nerves or to get [...] Comments ADDITIONAL SUSCEPTIBILITIES AND/OR IDENTIFICATION Routine 09/25/2023 7:55 PM EST Encounter for general adult medical examination without abnormal findings documented in this encounter Results * (ABNORMAL) Additional Susceptibilities and/or Identification (09/25/2023 7:55 PM EST) Culture Peptoniphilus harei group(A) 09/30/2023 1:37 PM EST HEALTHCARE LAB Comment:This isolate has bee n identified using the FDA Approved MALDI EnviroGeneyper CA System Blood 09/25/2023 7:55 PM EST 09/30/2023 10:10 AM EST us Anette Crow MD LAB MICROBIOLOGY - [facility] TITUS ETIENNE Final Result Performing Organization Address City/State/[facility] Co de Phone Number HEALTHCARE LAB [address] [place] [address] documented in this encounter Visit Diagnoses Diagnosis Encounter for general adult medical examination without abnormal findings documented in this encounter Additional Health Concerns Assessment Noted Time A fall risk assessment has been complete d for the patient 09/18/2022 8:55 AM EST documented as of this encounter Care Teams Client Integration Manager Relationship Specialty Start Date End Date Pavel Horvath MD [address] [place] [address] PCP - General 01/07/23 documented as of this encounter
--- OUTSIDE RECORDS SUMMARY | 2025-02-19 10:56 | XMS_ITS | Encounter Summary ---
Author Organization [employer] ([place], [place], [place], [place]) Address [address] [place] [address] Care Team Providers Care Wood And Hardware Outfitter Name Role Phone Unavailable Primary Care Provider Unavailabl e Encounter Details Date Type Department Care Team (Late st Contact Info) Description 09/19/2019 Transcribed Document [facility] [place] [address] ProviderHa MD [address] [place] [id number] Social History Tobacco Use Types Packs/Day Years [...] Note - Ha Dempsey MD - 09/19/2019 10:53 AM NEUROPSYCHOLOGY DIRECTOR Patient: MERLYN MARKS Age: 29 Years Sex: Female : 1990 Admit Date 09/17/2019 07:17 Discharge Date 09-19-19 Primary Care Provider RUBY YEAGER MD-OBG Discharge Diagnosis No Diagnosis on Record Procedures del and care. baby in nicu - doing well. okay with discharge today - has a toddler to take care of at home and has support and transportation - lives fairly close. Reason for Hospitalization spont labor/ Hospital Course benign Vital Signs Oxygen Settings (Last) vss; afebrile. Physical Exam gen: nad cardiac: reg rate resp: unlabored abd: fundus firm, nl lochia extrem: no edema or calf pain Discharge Disposition Home Discharge Follow Up 2-3 wks pp f/u for ppd screening Discharge Medications (3) Active ergocalciferol 50,000 intl units (1.25 mg) oral capsule Misc Prescription Multivitamins , Oral, Daily Code Status Start: 09/17/19 13:32:00 EST, Full Code, Continuous Order Consulting Physicians No Consulting Physician on Record. Current Diet Order Diet, Adult - Ordered -- Start: 09/17/19 13:32:00 EST, Regular Diet, Isolation: Standard Precautions Pending Labs Collected Blood Gas Venous Umbilical Specimen Type: Blood Gas, Stat collect, 09/17/19 13:12:00 EST, 1-Time, Stop: 09/17/19 13:12:00 EST, Nurse Collect, Collected, By: THI AUSTIN LPN Dispatched Creatinine Level Specimen Type: Blood, Routine collect, 09/17/19 9:29:00 EST, 1-Time, Stop: 09/17/19 9:30:00 EST, Nurse Collect documented in this encounter Plan of Treatment Not on file documented as of this encounter Visit Diagnoses Not on filedocumented in this encounter
--- OUTSIDE RECORDS SUMMARY | 2025-02-19 10:56 | XMS_ITS | Encounter Summary ---
Author Organization [employer] ([place], [place], [place], [place]) Address [address] [place] [address] Care Team Providers Care Rebar Worker Name Role Phone Unavailable Primary Care Provider Unavailabl e Encounter Details Date Type Department Care Team (Late st Contact Info) Description 09/17/2019 Transcribed Document [facility] [place] Medicine [facility] [place] [address] ProviderHa MD [address] [place] [address] [id number] Social History Tobacco Use Types Packs/Day Years [...] Conversion Note - Ha ProviderMD - 09/17/2019 2:58 PM FIELD NURSE UM Authorization Entered On: 09/17/2019 14:59 EST Performed On: 09/17/2019 14:58 EST by Erica Mckeon Rn-Utilization Review Primary Insurance Authorization Authorization and Policy Numbers : Insurance 1 Health [facility] Policy Number: [id number] Authorization Number: Insurance Primary Name : [facility] Policy Number: [id number] Authorization Status-Primary : Awaiting callback Reference Number-Primary : [id number] Authorization Number-Primary : [id number] Number of Days Authorized-Primary : 0 Day(s) Authorized Service Begin Date-Primary : 09/17/2019 EST Authorized Service End Date-Primary : 09/17/2019 EST Historical Authorization Comments-Primary : Comment 1: Attempted to put in auth thru potal. Received authorization for 1 day. Faxed in delivery summary with request for additional days (Erica Mckeon, Rn-Utilization Review 09/17/2019 14:34) Erica Mckeon Rn-Utilization Review - 09/17/2019 14:58 EST documented in this encounter Plan of Treatment Not on file documented as of this encounter Visit Diagnoses Not on filedocumented in this encounter
--- OUTSIDE RECORDS SUMMARY | 2025-02-19 10:56 | XMS_ITS | Referral Summary ---
Author Organization [employer] ([place], [place], [place], [place]) Address [address] [place] [address] Care Team Providers Care Manager Of Human Resources Name Role Phone Unavailable Primary Care Provider [...]
--- OUTSIDE RECORDS SUMMARY | 2025-02-19 10:56 | XMS_ITS | Encounter Summary ---
Author Organization [employer] ([place], [place], [place], [place]) Address [address] [place] [address] Care Team Providers Care Plumbing And Heating Mechanic Name Role Phone Unavailable Primary Care Provider Unavailabl e Encounter Details Date Type Department Care Team (Late st Contact Info) Description 07/18/2019 Transcribed Document [facility] [place] Family [place] [address] ProviderHa MD [address] [place] [id number] Social History Tobacco Use Types Packs/Day Years [...] - Ha ProviderMD - 07/18/2019 7:24 PM [facility]IST[employer] Patient Education Materials Follows: Nausea, Adult Feeling sick to your stomach [...] Applesauce. ? Rice. ? Lean meats. ? Manley. ? Crackers. ??? Avoid drinking fluids that contain a lot of sugar or caffeine. ??? Avoid alcohol. ??? Avoid spicy or fatty foods. General instructions ??? Drink enough fluid to keep your pee (urine) clear or pale yellow. ??? Wash your hands often. If you cannot use soap and water, use hand medical billing and coding instructor. ??? Make sure that all people in your household wash their hands well and often. ??? Rest at home while you get better. ??? Take mgta-amz-xlelhzo and prescription medicines only as told by [...] 07/10/2012 Document Revised: 12/27/2016 Document Reviewed: 03/27/2016 [employer] Interactive Patient Education ? 2019 [employer] Obstetrics and Gynecology Abdominal Pain During Abdominal pain is common [...] keep your urine pale yellow. ??? Take dpnx-qmq-pafmdap and prescription medicines only as told by [...] 07/22/2006 Document Revised: 10/24/2017 Document Reviewed: 10/24/2017 [employer] Interactive Patient Education ? 2019 [employer] documented in this encounter Plan of Treatment Not on file documented as of this encounter Visit Diagnoses Not on filedocumented in this encounter
--- OUTSIDE RECORDS SUMMARY | 2025-02-19 10:56 | XMS_ITS | Encounter Summary ---
Author Organization [employer] ([place], [place], [place], [place]) Address [address] [place] [address] Care Team Providers Care Department Store Manager Name Role Phone Unavailable Primary Care Provider Unavailabl e Encounter Details Date Type Department Care Team (Late st Contact Info) Description 01/17/2022 Transcribed Document [facility] [place] [facility] [place] [address] ProviderHa MD [address] [place] [id number] Social History Tobacco Use Types Packs/Day Years [...] Conversion Note - Ha ProviderMD - 01/17/2022 9:34 PM CDT Nursing Discharge Summary Entered On: 01/17/2022 21:35 EDT Performed On: 01/17/2022 21:34 EDT by ANEUDY PEREZ RN Discharge Documentation Discharge Date/Time : 01/17/2022 21:34 EDT Patient Disposition, General : Discharge Discharge To : Home with ambulatory/outpatient follow-up Mode Of Departure, General Discharge : Ambulatory Accompanied By, Discharge : Step sibling IV Discontinued : Not applicable Personal Belongings With Patient : No personal belongings to return Pt's Own Supply of Medications Returned : No patient supply of medications to return Prescriptions Given to Patient : No Medications Given to Patient : No Discharge Instructions Reviewed With, Opportunity For Questions Given : Patient, Sibling Patient Education Completed : Yes Teaching Method : Explanation, Printed materials Teaching Evaluation : Needs further teaching ANEUDY PEREZ RN - 01/17/2022 21:34 EDT documented in this encounter Plan of Treatment Not on file documented as of this encounter Visit Diagnoses Not on filedocumented in this encounter
--- OUTSIDE RECORDS SUMMARY | 2025-02-19 10:56 | XMS_ITS | Encounter Summary ---
Author Organization [employer] ([place], [place], [place], [place]) Address [address] [place] [address] Care Team Providers Care Cable Installer Repairer Helper Name Role Phone Unavailable Primary Care Provider Unavailabl e Encounter Details Date Type Department Care Team (Late st Contact Info) Description 09/18/2019 Transcribed Document [facility] [place] [address] ProviderHa MD [address] [place] [address] [phone] Social History Tobacco Use Types Packs/Day Years [...] Conversion Note - Ha ProviderMD - 09/18/2019 12:47 PM TRUST VAULT CUSTODIAN UM Authorization Entered On: 09/18/2019 12:48 EST Performed On: 09/18/2019 12:47 EST by Erica Mckeon Rn-Utilization Review Primary Insurance Authorization Authorization and Policy Numbers : Insurance 1 Health Plan[facility] Policy Number: [id number] Authorization Number: Insurance Primary Name : [facility] Policy Number: [id number] Authorization Status-Primary : Awaiting callback Reference Number-Primary : [id number] Authorization Number-Primary : [id number] Number of Days Authorized-Primary : 2 Day(s) Authorized Service Begin Date-Primary : 09/17/2019 EST Authorized Service End Date-Primary : 09/19/2019 EST Authorization Comments-Primary : Admit approved per [place] Alfaro.. NRD 09/20 Historical Authorization Comments-Primary : Comment 1: Attempted to put in auth thru potal. Received authorization for 1 day. Faxed in delivery summary with request for additional days (Erica Mckeon Rn-Utilization Review 09/17/2019 14:34) Erica Mckeon Rn-Utilization Review - 09/18/2019 12:47 EST Electronically signed by Catarino Arroyo Conversion Fretted Instruments Inspector Cerner at 11/19/2022 12:34 PM CDT documented in this encounter Plan of Treatment Not on file documented as of this encounter Visit Diagnoses Not on filedocumented in this encounter
[2025-02-20 11:11] LABS: Neisseria gonorrhoeae, NAA Negative (Negative)
== END 2025-02-18 23:59 | disposition home or self-care (01) ==
LOC: LAB.DROPOF 02-19 10:54
PROVIDERS: PCP Obstetrics & Gynecology; Visit Provider Obstetrics & Gynecology
DX: N89.8 Other specified noninflammatory disorders of vagina (principal)
CPT/HCPCS: 87491; 87591; 87798; 87801

== ENCOUNTER 2025-04-15 14:53 | Outpatient (CLI) | payer MEDICAID, SELFPAY ==
--- OUTSIDE RECORDS SUMMARY | 2025-04-16 10:33 | XMS_ITS | Encounter Summary ---
Author Organization Healthcare Address [address] [place] [address] Care Team Providers Care Hydroelectric Production Manager Name Role Phone Pavel Horvath MD Primary Care Provider [phone] Encounter Details Date Type Department Care Team (Late st Contact Info) Description 09/30/2023 Lab Requisition [facility] Lab [address] [place] [address] Anette Crow MD [facility] [place] [address] Encounter for general adult medical examination without abnormal findings Social History Tobacco Use Types Packs/Day Years Used Date Smoking Tobacco: Every Day Cigarettes Smokeless Tobacco: Current Comments:currently vaping Alcohol Use Standard Drinks/Week Comments Never 0 (1 standard drink = 0.6 oz pur e alcohol) PHQ-2 Answer Date Recorded Patient Health Questionnaire-2 Score 0 09/18/2022 [place] Depression Scale Answer Date Recorded [place] Depression Scale Total 20 02/23/2022 The thought [...] drink first t janusz in the morning (EYE-URBAN SOCIOLOGIST) to steady your nerves or to get [...] n identified using the FDA Approved MALDI Myrioyper [place] System Blood 09/25/2023 7:55 PM EST 09/30/2023 10:10 AM EST us Anette Crow MD LAB MICROBIOLOGY - [facility] TITUS ETIENNE Final Result Performing Organization Address City/State/[facility] Co de Phone Number HEALTHCARE LAB [address] [place] [address] documented in this encounter Visit Diagnoses Diagnosis Encounter for general adult medical examination without abnormal findings documented in this encounter Additional Health Concerns Assessment Noted Time A fall risk assessment has been complete d for the patient 09/18/2022 8:55 AM EST documented as of this encounter Care Teams Hydroelectric Production Manager Relationship Specialty Start Date End Date Pavel Horvath MD [address] [place] [address] PCP - General 01/07/23 documented as of this encounter
--- OUTSIDE RECORDS SUMMARY | 2025-04-16 10:33 | XMS_ITS | Encounter Summary ---
Author Organization [facility] Address [address] [place] [address] Care Team Providers Care Joint Cleaning Machine Operator Name Role Phone Yun Wong Primary Care Provider [phone] Reason for Visit * Reason Onset Date Comments Med Refill 05/14/2023 Encounter Details Date Type Department Care Team (Late st Contact Info) Description 05/14/2023 Refill [facility]NAL MEDIC[facility] [address] [facility] [address] [place] [phone] Marcos Brown MD [address] [facility] [address] [place] [address] Social History Tobacco Use Types Packs/Day Years [...] GED or equivalent No 04/16/2023 Preferred Language Hong Konger 04/16/2023 PHQ-2 Answer Date Recorded Retired PHQ-9: [...] on filedocumented in this encounter Care Teams Joint Cleaning Machine Operator Relationship Specialty Start Date End Date Yun Wong PA PCP - General Physician Sponge Buffer 04/18/23 documented as of this encounter
--- OUTSIDE RECORDS SUMMARY | 2025-04-16 10:33 | XMS_ITS | Clinical Summary ---
[facility] Organization [facility] Address [address] [place] [address] Care Team Providers Care Corn Grinder Name Role Phone Yun Wong Primary Care Provider [phone] Allergies Active Allergy Reactions Criticality Noted Date [...] drink = 0.6 oz pur e alcohol) [facility] Utilities Answer Date Recorded In the past 12 months has [employer], gas, oil, or water [employer] threatened to shut off services in your [...] Brief Depression Severity Measure Score 0 04/16/2023 [facility] - Occupational Stress Questionnaire Answer Date [...] things needed for daily living? No 09/19/2023 [place] Depression Scale Answer Date Recorded Retired [place] Depression Score 7 10/30/2023 Retired EPD Scale: [...] GED or equivalent No 09/19/2023 Preferred Language Vincentian 09/19/2023 PHQ-2 Answer Date Recorded Retired PHQ-9: [...] Exam 1990 ANNUAL PHYSICAL 03/30/2017 COVID-19 Vaccine (2024-09 6 season) 2025 05/17/2021, 11/15/2020, 10/24/2020 INFLUENZA VACCINE 05/05/2025 PAP SMEAR 03/08/2026 03/08/2023 (Patient-Reported (Performed Externally)) TDAP/TD VACCINES (3 - Td or Tdap) 08/01/2033 08/01/2023, 11/13/2002 HEPATITIS C SCREENING Completed 04/24/2023 Pneumococcal Vaccine 0-49 Aged Out No longer eligible based on patient's age to complete this topic Medical Devices Implanted Type Area Dental Assistant Instructor Device Identifier Shelf Expiration Date Model / Serial / Lot Bridge And [place]-Both On Top Procedures Procedure Name Priority Date/Time Associated Diagnosis Comments HEPATITIS C ANTIBODY Routine 04/24/2023 from Last 3 Months or Most Recently Relevant to Health Maintenance Results * Hepatitis C Antibody (04/24/2023) Hep C Virus Ab Non-reacti ve Blood Historical Provider LAB BLOOD ORDERABLES Venessa l Result from Last 3 Months or Most Recently Relevant to Health Maintenance [place] [address] Advance Directives * CPR (Attempt to Resuscitate) [...] Of Support Discussed With: Patient Care Teams Corn Grinder Relationship Specialty Start Date End Date Yun Wong PA PCP - General Physician Welding Equipment Sales Representative 04/18/23
--- OUTSIDE RECORDS SUMMARY | 2025-04-16 10:33 | XMS_ITS | Encounter Summary ---
Author Organization Healthcare Address [address] [place] [address] Care Team Providers Care Horticultural Farmworker Name Role Phone Pavel Horvath MD Primary Care Provider [phone] Encounter Details Date Type Department Care Team (Late st Contact Info) Description 09/30/2023 Lab Requisition [facility] Lab [address] [place] [address] Anette Crow MD [facility] [place] [address] Encounter for general adult medical examination without abnormal findings Social History Tobacco Use Types Packs/Day Years Used Date Smoking Tobacco: Every Day Cigarettes Smokeless Tobacco: Current Comments:currently vaping Alcohol Use Standard Drinks/Week Comments Never 0 (1 standard drink = 0.6 oz pur e alcohol) PHQ-2 Answer Date Recorded Patient Health Questionnaire-2 Score 0 09/18/2022 A[place] Depression Scale Answer Date Recorded Ava Depression Scale Total 20 02/23/2022 The thought [...] drink first t janusz in the morning (EYE-EMBEDDED SYSTEMS ENGINEER) to steady your nerves or to get [...] n identified using the FDA Approved MALDI TabTaleyper [place] System Blood 09/25/2023 7:35 PM EST 09/30/2023 10:14 AM EST us Anette Crow MD LAB MICROBIOLOGY - [facility] TITUS ETIENNE Final Result Performing Organization Address City/State/[facility] Co de Phone Number HEALTHCARE LAB [address] [place] [address] documented in this encounter Visit Diagnoses Diagnosis Encounter for general adult medical examination without abnormal findings documented in this encounter Additional Health Concerns Assessment Noted Time A fall risk assessment has been complete d for the patient 09/18/2022 8:55 AM EST documented as of this encounter Care Teams Horticultural Farmworker Relationship Specialty Start Date End Date Pavel Horvath MD [address] [place] [address] PCP - General 01/07/23 documented as of this encounter
--- OUTSIDE RECORDS SUMMARY | 2025-04-16 10:33 | XMS_ITS | Clinical Summary ---
Author Organization [facility] Address [address] [place] [address] Care Team Providers Care Helicopter Pilot Instructor Name Role Phone Pavel Horvath MD Primary Care Provider + [phone] Allergies Active Allergy Reactions Criticality Noted Date [...] (01/22/2022): Added automatically from request for surgery [id number] Second trimester 01/18/2022 0 01/23/2022 Social History Tobacco Use Types Packs/Day Years Used Date Smoking Tobacco: Every Day Cigarettes Smokeless Tobacco: Current Tobacco Cessation:Ready to Q uit: Not Asked; Counseling Given: Not Answered Comments:currently vaping Alcohol Use Standard Drinks/Week Comments Never 0 (1 standard drink = 0.6 oz pur e alcohol) PHQ-2 Answer Date Recorded Patient Health Questionnaire-2 Score 0 09/18/2022 Pilgrim Depression Scale Answer Date Recorded Pilgrim Depression Scale Total 20 02/23/2022 The thought [...] drink first t janusz in the morning (EYE-PAY STATION ATTENDANT) to steady your nerves or to get [...] of 2 - 13+ 2-dose series) 01/07/2005 [facility]- SDOH Screenings 01/07/2010 [facility]-Adult SDOH Screenings 01/07/2010 HPV Vaccines (1 - 3-dose SCDM series) 01/07/2019 [facility]-Depression Screening 09/18/2023 023, 02/23/2022 [facility]-Pap Smear 02/23/2025 02/23/2022 [id number]-TMSBD-94 Vaccine (4 - season) 2025 05/17/2021, 11/15/2020, 10/24/2020 [facility]-Influenza Vaccine (#1) 2025 [facility]-Cervical Cancer Screening 02/23/2027 [facility]-HPV/Cotest 02/23/2027 02/23/2022, 02/23/2022 [facility]-DTaP,Tdap,and Td Vaccines (4 - Td [...] 11:34 AM EDT) Case Report Cytology Case: [id number] Authorizing Provider: Kathy Dover MD Collected: 02/23/2022 1134 Ordering Location: Medical Office Building Received: 02/23/2022 1134 Obstetrics and Gynecology First Screen: Andres So Specimen: ThinPrep Pap Test, Liquid-Based Cervical/Vaginal, CERVICAL/VAGINAL 03/09/2022 11:12 AM EDT [facility] Interpretation NEGATIVE FOR INTRAEPITHELIAL LESION OR MALIGNANCY 03/09/2022 11:12 AM EDT [facility] at 1112 EDT Specimen Adequacy Satisfactory for evaluation; endocervical/breen sformation zone component present. Slide imaged by the ThinPrep Imaging system and selected 22 gonzalez reviewed then full manual screening. 03/09/2022 11:12 AM EDT [facility] Cervical cytology is a screening test [...] results is suggested (please call Microbiology at [phone] for results). 03/09/2022 11:12 AM EDT [facility] Menstrual Status Post- 022 11:12 AM EDT [facility] Contraceptive History Not Applicable 03/09/2022 11:12 AM EDT [facility] Screening Type Routine Screen 2021 11:12 AM EDT [facility] High Risk? Yes 03/09/2022 11:12 AM EDT [facility] HPV Testing Requested? Request HPV Testing [...] CYTOLOGY ORDERABLES Final Result Performing Organization Address City/State/[facility] Co de Phone Number HEALTHCARE LAB [address] [place] [phone] from Last 3 Months or Most Recently Relevant to Health Maintenance Insurance [facility] MEDICAID Advance Directives * Full Code (Latest Code Status on File) Date Activated Date Inactivated Comments 01/21/2022 3:10 PM 01/23/2022 6:18 PM Question Answer Comments Patient has decision-making capacity? Yes * Full Code Date Activated Date Inactivated Comments 01/18/2022 9:41 PM 01/20/2022 9:32 PM Question Answer Comments Patient has decision-making capacity? Yes Care Teams Helicopter Pilot Instructor Relationship Specialty Start Date End Date Pavel Horvath MD [address] [place] [id number] PCP - General 01/07/23
== END 2025-04-15 23:59 | disposition home or self-care (01) ==
LOC: LAB.DROPOF 04-16 10:30
PROVIDERS: PCP Obstetrics & Gynecology; Visit Provider Obstetrics & Gynecology
DX: N76.0 Acute vaginitis (principal); N94.89 Other specified conditions associated with female genital organs and menstrual cycle; L29.2 Pruritus vulvae
CPT/HCPCS: 87086; 87491; 87529; 87591; 87661; 87798; 87801

== ENCOUNTER 2025-06-28 11:52 | Outpatient (CLI) | payer MEDICAID, SELFPAY ==
--- OUTSIDE RECORDS SUMMARY | 2025-06-28 12:02 | XMS_ITS | Encounter Summary ---
Author Organization [employer] ([place], [place], [place], [place], [place]) Address [address] [place] [address] Care Team Providers Care Tie Tape Machine Operator Name Role Phone Unavailable Primary Care Provider Unavailabl e Encounter Details Date Type Department Care Team (Late st Contact Info) Description 09/17/2019 Transcribed Document [facility] [place] [facility] [place] [address] ProviderHa MD [address] [place] [address] Social History Tobacco Use Types Packs/Day [...] - Historical ProviderMD - 09/17/2019 7:58 AM ENGINEERING TECHNICIAN PARKING Admission Data, OB Entered On: 09/17/2019 8:00 EST Performed On: 09/17/2019 7:58 EST by UMBERTO LONGORIA RN Advance Directive Patient has Advance Directive *Q : No, patient refuses Advance Directive information UMBERTO LONGORIA RN - 09/17/2019 7:58 EST Height and Weight Height Source : Measured Height Entry Format : [place] Height, Feet : 5 ft(Converted to: 152 cm, 60 Inch) Clinical Height : 160.02 cm Height, Inches : 3 Inch(Converted to: 0 ft 3 Inch, 7.62 cm) Weight Source : Standing scale Weight Entry Format : [place] Weight, Pounds : 174 lb Clinical Dosing Weight : 79.09 kg Body Surface Area (BSA) : 1.82 m2 Body Mass Index : 30.9 kg/m2 (HI) [place] Body Weight (IBW) : 52.02 kg UMBERTO [...] 09/19/2016 13:01:23 EST by RIVKA LONG, KHAI) Tetanus Immunization Status Previous Tetanus Immunizations : [...] UMBERTO LONGORIA RN - 09/17/2019 7:58 EST [place] Suicide Severity Rating Scale (C-SSRS) CSSRS Past [...]
--- OUTSIDE RECORDS SUMMARY | 2025-06-28 12:02 | XMS_ITS | Encounter Summary ---
Author Organization [employer] ([place], [place], [place], [place], [place]) Address [address] [place] [address] Care Team Providers Care Shotgun Shell Reprinting Unit Operator Name Role Phone Unavailable Primary Care Provider Unavailabl e Encounter Details Date Type Department Care Team (Late st Contact Info) Description 09/17/2019 Transcribed Document [facility] [place] [facility] [place] [address] ProviderHa MD [address] [place] [address] Social History Tobacco Use Types Packs/Day [...] Conversion Note - Historical ProviderMD - 09/17/2019 2:58 PM LOSS PREVENTION OPERATIONS MANAGER UM Authorization Entered On: 09/17/2019 14:59 EST Performed On: 09/17/2019 14:58 EST by Erica Mckeon Rn-Utilization Review Primary Insurance Authorization Authorization and Policy Numbers : Insurance 1 Health Plan: [facility] Policy Number: [id number] Authorization Number: Insurance Primary Name : [facility] Policy Number: [id number] Authorization Status-Primary : Awaiting callback Reference Number-Primary : [id number] Authorization Number-Primary : [id number] Number of Days Authorized-Primary : 0 Day(s) [...]
--- OUTSIDE RECORDS SUMMARY | 2025-06-28 12:02 | XMS_ITS | Encounter Summary ---
Author Organization [email or web address] ([place], [place], [place], [place], [place]) Address [address] [place] [address] Care Team Providers Care Foot Doctor Name Role Phone Unavailable Primary Care Provider Unavailabl e Encounter Details Date Type Department Care Team (Late st Contact Info) Description 07/18/2019 Transcribed Document [facility] [place] [address] ProviderHa MD [address] [place] [address] Social History Tobacco Use Types Packs/Day [...] Ha Dempsey MD - 07/18/2019 7:26 PM MICROARRAY OPERATIONS VICE PRESIDENT [address] [address] NU MERLYN GAIL :1990 Visit Time:07/18/2019 Your [...] keep your urine pale yellow. ??? Take qlea-zfx-lulsgvc and prescription medicines only as told by [...] 07/22/2006 Document Revised: 10/24/2017 Document Reviewed: 10/24/2017 apta.me Interactive Patient Education ?? 2019 apta.me Inc. Nausea, Adult Feeling sick to your [...] Applesauce. ? Rice. ? Lean meats. ? Laguna. ? Crackers. ??? Avoid drinking fluids that contain a lot of sugar or caffeine. ??? Avoid alcohol. ??? Avoid spicy or fatty foods. General instructions ??? Drink enough fluid to keep your pee (urine) clear or pale yellow. ??? Wash your hands often. If you cannot use soap and water, use hand circular clerk. ??? Make sure that all people in your household wash their hands well and often. ??? Rest at home while you get better. ??? Take zgtu-sav-kxyaewb and prescription medicines only as told by [...] 07/10/2012 Document Revised: 12/27/2016 Document Reviewed: 03/27/2016 apta.me Interactive Patient Education ?? 2019 apta.me Inc. Emergency Awareness and Preventative Care STROKE [...] Assistance with quitting is available by contacting 5-648-USYT-NOW. This is a free resource providing counseling, [...] range between ( 1.0 and 7.0 ) [place] #: 0.38 K/uL -- Normal range between ( 0.24 and 0.82 ) Eos #: 0.01 K/uL -- Normal range between ( 0.04 and 0.54 ) [place] %: 3.6 % -- Normal range between [...] ) Urine Bilirubin Dipstick: Small Urine Specific [place]: 1.034 -- Normal range between ( 1.005 [...] was given the opportunity to ask questions. Patient/Charge Machine Operator Name: Patient/Charge Machine Operator Signature: Relationship to Patient: Clinician/Hospital Charge Machine Operator Signature: Date: documented in this encounter Plan of Treatment Not on file documented as of this encounter Visit Diagnoses Not on filedocumented in this encounter
--- OUTSIDE RECORDS SUMMARY | 2025-06-28 12:02 | XMS_ITS | Clinical Summary ---
Author Organization [facility] ([place], [place], [place], [place], [place]) Address [address] [place] [address] Care Team Providers Care Commissioned Police Officer Name Role Phone Unavailable Primary Care [...]
--- OUTSIDE RECORDS SUMMARY | 2025-06-28 12:02 | XMS_ITS | Encounter Summary ---
Author Organization [employer] ([place], [place], [place], [place], [place]) Address [address] [place] [address] Care Team Providers Care Legal Librarian Name Role Phone Unavailable Primary Care Provider Unavailabl e Encounter Details Date Type Department Care Team (Late st Contact Info) Description 07/18/2019 Transcribed Document [facility] [place] [facility] [place] [address] ProviderHa MD [address] [place] [address] Social History Tobacco Use Types Packs/Day [...] - Historical ProviderMD - 07/18/2019 6:00 PM POPULATION HEALTH MANAGER Admission Data, OB Entered On: 07/18/2019 18:02 EST Performed On: 07/18/2019 18:00 EST by Heath Heard RN Advance Directive Patient has Advance Directive *Q : No, patient refuses Advance Directive information Heath Heard RN - 07/18/2019 18:00 EST Height and Weight Height Source : Measured Height Entry Format : [place] Height, Feet : 5 ft(Converted to: 152 cm, 60 Inch) Clinical Height : 167.64 cm Height, Inches : 6 Inch(Converted to: 0 ft 6 Inch, 15.24 cm) Weight Source : Standing scale Weight Entry Format : [place] Weight, Pounds : 159 lb Clinical Dosing Weight : 72.27 kg Body Surface Area (BSA) : 1.82 m2 Body Mass Index : 25.7 kg/m2 (HI) [place] Body Weight (IBW) : 58.88 kg Heath [...] 09/19/2016 13:01:23 EST by RIVKA LONG RN) Gestational Age Gestational Age Person Gestational Age [...] Heath Heard RN - 07/18/2019 18:00 EST [place] Suicide Severity Rating Scale (C-SSRS) CSSRS Past [...]
--- OUTSIDE RECORDS SUMMARY | 2025-06-28 12:02 | XMS_ITS | Encounter Summary ---
Author Organization [employer] ([place], [place], [place], [place], [place]) Address [address] [place] [address] Care Team Providers Care Pin Ball Machine Mechanic Name Role Phone Unavailable Primary Care Provider Unavailabl e Encounter Details Date Type Department Care Team (Late st Contact Info) Description 09/17/2019 Transcribed Document [facility] [place] [facility] [place] [address] ProviderHa MD [address] [place] [address] Social History Tobacco Use Types Packs/Day [...] Conversion Note - Historical ProviderMD - 09/17/2019 1:32 PM HOG FEEDER Pain Assessment Entered On: 09/18/2019 4:12 EST Performed On: 09/18/2019 0:22 EST by Adrianna Alvarado, RN Intervention Information: acetaminophen-oxyCODONE Performed by Adrianna Alvarado RN on 09/17/2019 23:22:00 EST acetaminophen-oxyCODONE,1Tab Oral,Pain (Moderate 4-6) Pain Assessment Pain Assessment : Follow-up assessment Pain Improved by Intervention : Yes Adrianna Alvarado RN - 09/18/2019 4:12 EST Electronically signed by Dina [facility] Conversion Geothermal Heat Pump Machinist Cerner at 11/19/2022 12:32 PM CDT documented in this encounter Plan of Treatment Not on file documented as of this encounter Visit Diagnoses Not on filedocumented in this encounter
--- OUTSIDE RECORDS SUMMARY | 2025-06-28 12:02 | XMS_ITS | Encounter Summary ---
Author Organization [email or web address] ([place], [place], [place], [place], [place]) Address [address] [place] [address] Care Team Providers Care Or Scrub Tech Name Role Phone Unavailable Primary Care Provider Unavailabl e Encounter Details Date Type Department Care Team (Late st Contact Info) Description 09/19/2019 Transcribed Document [facility] [place] [facility] [place] [address] ProviderHa MD [address] [place] [address] Social History Tobacco Use Types Packs/Day [...] - Ha ProviderMD - 09/19/2019 11:24 AM RETREAD TECHNICIAN [address] [address] NU MERLYNBETHANY RIVAS :1990 Visit Time:09/17/2019 Your [...] Tablet(s) Oral Every 8 Hours Pickup at [facility]/pharmacy #[id number] ergocalciferol (ergocalciferol 50,000 intl units (1.25 mg) oral capsule) multivitamin, ( Multivitamins) Oral Every Day Non Formulary (Misc Prescription) Pharmacy Information [id number]: [address] [place], [place] [id number] [phone] Take your medications faithfully. Do NOT skip [...] these instructions at home: Medicines ??? Take fukt-yxo-kfafrpi and prescription medicines only as told by [...] 07/19/2001 Document Revised: 01/02/2017 Document Reviewed: 08/05/2016 mGaadi Interactive Patient Education ?? 2019 mGaadi Inc. ibuprofen (EYE bue PROE fen) Advil, Genpril, IBU, Midol IB, Motrin IB, Proprinal, Smart Sense Children's Ibuprofen What is the most important information I should know about ibuprofen? Ibuprofen can increase your risk of fatal heart attack or stroke, especially if you use it industrial technology education teacher or take high doses, or if you [...] or stroke, especially if you use it mcc or take high doses, or if you [...] may report side effects to FDA at 2-284-TWB-2021. What other drugs will affect ibuprofen? Ask [...] may interact with ibuprofen, including prescription and bunh-zqo-cfdnbfx medicines, vitamins, and herbal products. Not all [...] to ensure that the information provided by [employer]wise. ('OnHandum') is accurate, up-to-date, and complete, but no guarantee is made to that effect. Drug information contained herein may be time sensitive. [employer] information has been compiled for use by healthcare practitioners and consumers in the [place] and therefore [employer] does not warrant that uses outside of the [place] are appropriate, unless specifically indicated otherwise. Symtavisions drug information does not endorse drugs, diagnose patients or recommend therapy. [employer]avisions drug information is an informational resource designed [...] effective or appropriate for any given patient. [employer] does not assume any responsibility for any aspect of healthcare administered with the aid of information Target[employer] provides. The information contained herein is not intended to cover all possible uses, directions, precautions, warnings, drug interactions, allergic reactions, or adverse effects. If you have questions about the drugs you are taking, check with your doctor, nurse or pharmacist. Copyright 3712-2936 [employer]wise. Version: 19.01. Revision Date: 03/17/2019. Emergency Awareness [...] Assistance with quitting is available by contacting 0-829-LFGE-NOW. This is a free resource providing counseling, [...] range between ( 1.0 and 7.0 ) [place] #: 0.59 K/uL -- Normal range between ( 0.24 and 0.82 ) Eos #: 0.13 K/uL -- Normal range between ( 0.04 and 0.54 ) [place] %: 4.3 % -- Normal range between [...] ) Urine Bilirubin Dipstick: Negative Urine Specific [place]: 1.015 -- Normal range between ( 1.005 and 1.030 ) Urine Type.: U [facility] 09/17/2019 9:13 AM ABO/Rh: A [...] was given the opportunity to ask questions. Patient/Hebrew Professor Name: Patient/Hebrew Professor Signature: Relationship to Patient: Clinician/Hospital Hebrew Professor Signature: Date: Electronically signed by [facility], [facility] Conversion Commercial Lending Vice President [place] at 11/19/2022 12:24 PM CDT documented in this encounter Plan of Treatment Not on file documented as of this encounter Visit Diagnoses Not on filedocumented in this encounter
--- OUTSIDE RECORDS SUMMARY | 2025-06-28 12:02 | XMS_ITS | Encounter Summary ---
Author Organization [employer] ([place], [place], [place], [place], [place]) Address [address] [place] [address] Care Team Providers Care Sql Server Consultant Name Role Phone Unavailable Primary Care Provider Unavailabl e Encounter Details Date Type Department Care Team (Late st Contact Info) Description 09/19/2019 Transcribed Document [facility] [place] [facility] [address] ProviderHa MD [address] [place] [address] Social History Tobacco Use Types Packs/Day [...] Ha Dempsey MD - 09/19/2019 11:22 AM AUTOMOBILE UPHOLSTERER Patient Education Materials Follows:and Gynecology Vaginal Delivery, [...] these instructions at home: Medicines ??? Take vzek-ltc-yftzddu and prescription medicines only as told by [...] 08/05/2016 Elsevier Interactive Patient Education ? 2019 [employer] Inc. Electronically signed by Catarino Arroyo Conversion Injury Prevention Coordinator Cerner at 11/19/2022 12:24 PM CDT documented in this encounter Plan of Treatment Not on file documented as of this encounter Visit Diagnoses Not on filedocumented in this encounter
--- OUTSIDE RECORDS SUMMARY | 2025-06-28 12:02 | XMS_ITS | Encounter Summary ---
Author Organization [employer] ([place], [place], [place], [place], [place]) Address [address] [place] [address] Care Team Providers Care Meat Market Manager Name Role Phone Unavailable Primary Care Provider Unavailabl e Encounter Details Date Type Department Care Team (Late st Contact Info) Description 09/17/2019 Transcribed Document [facility] [place] [facility] [place] [address] ProviderHa MD [address] [place] [address] Social History Tobacco Use Types Packs/Day [...] - Historical ProviderMD - 09/17/2019 2:34 PM JOB PLACEMENT SPECIALIST UM Authorization Entered On: 09/17/2019 14:35 EST Performed On: 09/17/2019 14:34 EST by Erica Mckeon Rn-Utilization Review Primary Insurance Authorization Authorization and Policy Numbers : Insurance 1 Health Plan[facility] Policy Number: [id number] Authorization Number: Insurance Primary Name : [facility] Policy Number: [id number] Authorization Status-Primary : Awaiting callback Reference Number-Primary : [id number] Authorization Number-Primary : [id number] Authorized Service Begin Date-Primary : 09/17/2019 EST Authorization Comments-Primary : Attempted to put in auth thru [employer]al. Received authorization for 1 day. Faxed in delivery summary with request for additional days Historical Authorization Comments-Primary : No Authorization Comments Found Erica Mckeon Rn-Utilization Review - 09/17/2019 14:34 EST Electronically signed by Dina [facility] Conversion Fish Farmer Cerner at 11/19/2022 12:30 PM CDT documented in this encounter Plan of Treatment Not on file documented as of this encounter Visit Diagnoses Not on filedocumented in this encounter
--- OUTSIDE RECORDS SUMMARY | 2025-06-28 12:02 | XMS_ITS | Encounter Summary ---
Author Organization [employer] ([place], [place], [place], [place], [place]) Address [address] [place] [address] Care Team Providers Care Watch Dial Printer Name Role Phone Unavailable Primary Care Provider Unavailabl e Encounter Details Date Type Department Care Team (Late st Contact Info) Description 07/18/2019 Transcribed Document [facility] [place] [facility] [place] [address] ProviderHa MD [address] [place] [address] Social History Tobacco Use Types Packs/Day [...] - Ha ProviderMD - 07/18/2019 7:25 PM PLATFORM WORKER Nursing Discharge Summary Entered On: 07/18/2019 19:26 EST Performed On: 07/18/2019 19:25 EST by SHILA OCASIO furniture and bedding inspector Documentation Discharge Date/Time : 07/18/2019 19:35 EST [...] SHILA OCASIO RN - 07/18/2019 19:25 EST documented in this encounter Plan of Treatment Not on file documented as of this encounter Visit Diagnoses Not on filedocumented in this encounter
--- OUTSIDE RECORDS SUMMARY | 2025-06-28 12:02 | XMS_ITS | Encounter Summary ---
Author Organization [employer] ([place], [place], [place], [place], [place]) Address [address] [place] [address] Care Team Providers Care College Intern Name Role Phone Unavailable Primary Care Provider Unavailabl e Encounter Details Date Type Department Care Team (Late st Contact Info) Description 09/18/2019 Transcribed Document [facility] [place] [address] ProviderHa MD [address] [place] [address] Social History Tobacco Use Types Packs/Day [...] - Ha ProviderMD - 09/18/2019 12:00 AM FARM FORESTRY AND GARDEN WORKERS Pain Assessment Entered On: 09/18/2019 4:12 EST Performed On: 09/18/2019 0:22 EST by Adrianna Alvarado, RN Intervention Information: ibuprofen Performed by Adrianna Alvarado, RN on 09/17/2019 23:22:00 EST ibuprofen,600mg Oral Pain Assessment Pain Assessment : Follow-up assessment Pain Improved by Intervention : Yes Adrianna Alvarado, RN - 09/18/2019 4:12 EST Electronically signed by Dina [facility] Conversion Temporary Data Entry Clerk Cerner at 11/19/2022 12:16 PM CDT documented in this encounter Plan of Treatment Not on file documented as of this encounter Visit Diagnoses Not on filedocumented in this encounter
--- OUTSIDE RECORDS SUMMARY | 2025-06-28 12:02 | XMS_ITS | Encounter Summary ---
Author Organization [facility] ([place], [place], [place], [place], [place]) Address [address] [place] [address] Care Team Providers Care Carpenter Helper Name Role Phone Unavailable Primary Care Provider Unavailabl e Encounter Details Date Type Department Care Team (Late st Contact Info) Description 09/18/2019 Transcribed Document [facility] [place] [facility] [place] [address] ProviderHa MD [address] [place] [address] Social History Tobacco Use Types Packs/Day [...] - Historical ProviderMD - 09/18/2019 2:42 AM ACOUSTIC SENSOR OPERATOR Operator/Assistant Foreman Details Entered On: 09/18/2019 2:43 EST Performed [...] Adrianna Alvarado, RN - 09/18/2019 2:42 EST documented in this encounter Plan of Treatment Not on file documented as of this encounter Visit Diagnoses Not on filedocumented in this encounter
--- OUTSIDE RECORDS SUMMARY | 2025-06-28 12:02 | XMS_ITS | Encounter Summary ---
Author Organization [employer] ([place], [place], [place], [place], [place]) Address [address] [place] [address] Care Team Providers Care Compo Conveyor Operator Name Role Phone Unavailable Primary Care Provider Unavailabl e Encounter Details Date Type Department Care Team (Late st Contact Info) Description 09/19/2019 Transcribed Document [facility] [place] [facility] [place] [address] ProviderHa MD [address] [place] [address] Social History Tobacco Use Types Packs/Day [...] - Ha ProviderMD - 09/19/2019 12:27 PM MEDICAID BILLING CLERK Nursing Discharge Summary Entered On: 09/19/2019 12:27 [...] - 09/19/2019 12:27 EST Electronically signed by Dina, [facility] Conversion Diagrammer Cerner at 11/19/2022 12:31 PM CDT documented in this encounter Plan of Treatment Not on file documented as of this encounter Visit Diagnoses Not on filedocumented in this encounter
--- OUTSIDE RECORDS SUMMARY | 2025-06-28 12:02 | XMS_ITS | Clinical Summary ---
[facility] Address [address] [place] [address] Care Team Providers Care Auto Polisher Name Role Phone Yun Wong Primary Care Provider [phone] Allergies Active Allergy Reactions Criticality Noted Date [...] drink = 0.6 oz pur e alcohol) [facility] Utilities Answer Date Recorded In the past 12 months has [employer], gas, oil, or water [employer] threatened to shut off services in [...] Brief Depression Severity Measure Score 0 04/16/2023 [facility] - Occupational Stress Questionnaire Answer Date Recorded [...] things needed for daily living? No 09/19/2023 [place] Depression Scale Answer Date Recorded [place] Depression Scale Total 7 10/30/2023 The thought of harming myself has occurred to me . Unrecognized value 10/30/2023 Abuse Screen Answer Date Recorded [...] GED or equivalent No 09/19/2023 Preferred Language Hungarian 09/19/2023 PHQ-2 Answer Date Recorded Retired PHQ-9: [...] d Breast Exam 1992 ANNUAL PHYSICAL 03/30/2017 INFLUENZA VACCINE 03/05/2025 PAP SMEAR 03/08/2026 03/08/2023 (Patient-Reported (Performed Externally)) TDAP/TD VACCINES (3 - Td or Tdap) 08/01/2033 08/01/2023, 11/13/2002 HEPATITIS C SCREENING Completed 04/24/2023 Pneumococcal Vaccine 0-49 Aged Out No longer eligible based on patient's age to complete this topic Medical Devices Implanted Type Area Senior Loan Officer Device Identifier Shelf Expiration Date Model / Serial / Lot [place]-Both On Top Procedures Procedure Name Priority Date/Time [...] Of Support Discussed With: Patient Care Teams Auto Polisher Relationship Specialty Start Date End Date Yun Wong PA PCP - General Physician Price Economist 04/18/23
--- OUTSIDE RECORDS SUMMARY | 2025-06-28 12:02 | XMS_ITS | Encounter Summary ---
Author Organization [employer] ([place], [place], [place], [place], [place]) Address [address] [place] [address] Care Team Providers Care Evaporator Operator Name Role Phone Unavailable Primary Care Provider Unavailabl e Encounter Details Date Type Department Care Team (Late st Contact Info) Description 09/18/2019 Transcribed Document [facility] [place] [address] ProviderHa MD [address] [place] [address] Social History Tobacco Use Types Packs/Day [...] - Historical ProviderMD - 09/18/2019 5:00 AM CLIENT ASSOCIATE Chart Check - Review Order Profile Entered On: 09/18/2019 4:12 EST Performed On: 09/18/2019 5:00 EST by Adrianna Alvarado, RN Chart Check Powerplans Initiated/Discontinued as Appropriate : Yes All Active Orders Reviewed : Yes Adrianna Alvarado, RN - 09/18/2019 4:12 EST Electronically signed by Dina [facility] Conversion Administrative Library Assistant Cerner at 11/19/2022 12:30 PM CDT documented in this encounter Plan of Treatment Not on file documented as of this encounter Visit Diagnoses Not on filedocumented in this encounter
--- OUTSIDE RECORDS SUMMARY | 2025-06-28 12:02 | XMS_ITS | Encounter Summary ---
Author Organization [employer] ([place], [place], [place], [place], [place]) Address [address] [place] [address] Care Team Providers Care Night Clerk Name Role Phone Unavailable Primary Care Provider Unavailabl e Encounter Details Date Type Department Care Team (Late st Contact Info) Description 09/18/2019 Transcribed Document [facility] [place] [place] [facility] [place] [address] ProviderHa MD [address] [place] [address] Social History Tobacco Use Types Packs/Day [...] Conversion Note - Ha ProviderMD - 09/18/2019 6:14 PM SAP FICO BUSINESS ANALYST Patient: MERLYN MARKS Age: 29 Years Sex: [...] OGTT scheduled for 6 week visit: Yes(_)/No(_) Infant Data [place] (_) NICU (_) Medications Inpatient Adacel (Tdap), 0.5 mL, IntraMuscular, 1-Time, PRN aluminum hydroxide/magnesium hydroxide/simethicone 200 mg-200 mg-20 mg/5 mL oral suspension, 30 mL, Oral, Q4H, PRN Ambien, 5 mg= 1 Tab, Oral, At Bedtime, PRN bupivacaine-fentaNYL 100 mL, 100 mL, Epidural Cytotec, 400 mcg= 2 Tab, Rectal, 1-Time, PRN Dermoplast 20% topical spray, 1 [place], Topical, Q4H, PRN Hemabate, 250 mcg= 1 [...] H 13.6 299 / L 32.0 \ documented in this encounter Plan of Treatment Not on file documented as of this encounter Visit Diagnoses Not on filedocumented in this encounter
--- OUTSIDE RECORDS SUMMARY | 2025-06-28 12:02 | XMS_ITS | Encounter Summary ---
Author Organization [employer] ([place], [place], [place], [place], [place]) Address [address] [place] [address] Care Team Providers Care Pharmacy Picking Technician Name Role Phone Unavailable Primary Care Provider Unavailabl e Encounter Details Date Type Department Care Team (Late st Contact Info) Description 07/18/2019 Transcribed Document [facility] Family Medicine [facility] [place] [address] ProviderHa MD [address] [place] [id number] Social History Tobacco Use Types Packs/Day Years [...] Conversion Note - Historical ProviderMD - 07/18/2019 7:24 PM ACT TUTOR Stroke/Warfarin Instructions Entered On: 07/18/2019 19:24 EST Performed On: 07/18/2019 19:24 EST by SHILA OCASIO RN Stroke/Warfarin Instructions Stroke/TIA Discharge Ins : N/A Warfarin Discharge Ins : N/A SHILA OCASIO RN - 07/18/2019 19:24 EST Electronically signed by Dina [facility] Conversion Mammography Technician Cerner at 11/19/2022 12:18 PM CDT documented in this encounter Plan of Treatment Not on file documented as of this encounter Visit Diagnoses Not on filedocumented in this encounter
--- OUTSIDE RECORDS SUMMARY | 2025-06-28 12:02 | XMS_ITS | Encounter Summary ---
Author Organization [employer] ([place], [place], [place], [place], [place]) Address [address] [place] [address] Care Team Providers Care Underground Repairer Name Role Phone Unavailable Primary Care Provider Unavailabl e Encounter Details Date Type Department Care Team (Late st Contact Info) Description 07/18/2019 Transcribed Document [facility] [place] Family Medicine [facility] [place] [address] ProviderHa MD [address] [place] [address] Social History Tobacco Use Types Packs/Day [...] - Ha ProviderMD - 07/18/2019 7:24 PM SMOKING PIPE DRILLER AND THREADER Patient Education Materials Follows: Nausea, Adult Feeling [...] Applesauce. ? Rice. ? Lean meats. ? [place]. ? Crackers. ??? Avoid drinking fluids that contain a lot of sugar or caffeine. ??? Avoid alcohol. ??? Avoid spicy or fatty foods. General instructions ??? Drink enough fluid to keep your pee (urine) clear or pale yellow. ??? Wash your hands often. If you cannot use soap and water, use hand peoplesoft functional analyst. ??? Make sure that all people in your household wash their hands well and often. ??? Rest at home while you get better. ??? Take xrax-sjo-dsgofek and prescription medicines only as told by [...] 07/10/2012 Document Revised: 12/27/2016 Document Reviewed: 03/27/2016 [employer] Interactive Patient Education ? 2019 [employer] Obstetrics and Gynecology Abdominal Pain During [...] keep your urine pale yellow. ??? Take kbms-iqp-hiqeyrj and prescription medicines only as told by [...] 07/22/2006 Document Revised: 10/24/2017 Document Reviewed: 10/24/2017 [employer] Interactive Patient Education ? 2019 [employer] documented in this encounter Plan of Treatment Not on file documented as of this encounter Visit Diagnoses Not on filedocumented in this encounter
--- OUTSIDE RECORDS SUMMARY | 2025-06-28 12:02 | XMS_ITS | Referral Summary ---
Author Organization [employer] ([place], [place], [place], [place], [place]) Address [address] [place] [address] Care Team Providers Care Tool Engineer Name Role Phone Unavailable Primary Care [...]
--- OUTSIDE RECORDS SUMMARY | 2025-06-28 12:03 | XMS_ITS | Encounter Summary ---
Author Organization [employer] ([place], [place], [place], [place], [place]) Address [address] [place] [address] Care Team Providers Care Oil And Gas Superintendent Name Role Phone Unavailable Primary Care Provider Unavailabl e Encounter Details Date Type Department Care Team (Late st Contact Info) Description 09/19/2019 Transcribed Document [facility] [place] Family [place] [facility] [place] [address] ProviderHa MD [address] [place] [address] Social History Tobacco Use Types Packs/Day [...] - Historical ProviderMD - 09/19/2019 1:37 AM AUTO GLASS WORKER Pearl Fisherman Details Entered On: 09/19/2019 1:37 EST Performed [...]
--- OUTSIDE RECORDS SUMMARY | 2025-06-28 12:03 | XMS_ITS | Encounter Summary ---
Author Organization [facility] Address [address] [place] [address] Care Team Providers Care Director Print Name Role Phone Pavel Horvath MD Primary Care Provider [phone] Encounter Details Date Type Department Care Team (Late st Contact Info) Description 09/30/2023 Lab Requisition [facility] Lab [address] [place] [address] Anette Crow MD [facility] [place] [address] Encounter for general adult medical examination without abnormal findings Social History Tobacco Use Types Packs/Day Years Used Date Smoking Tobacco: Every Day Cigarettes Smokeless Tobacco: Current Comments:currently vaping Alcohol Use Standard Drinks/Week Comments Never 0 (1 standard drink = 0.6 oz pur e alcohol) PHQ-2 Answer Date Recorded Patient Health Questionnaire-2 Score 0 09/18/2022 [place] Depression Scale Answer Date Recorded [place] Depression Scale Total 20 02/23/2022 The thought [...] drink first t janusz in the morning (EYE-PIN ATTACHER) to steady your nerves or to get [...] n identified using the FDA Approved MALDI Co3 Systemsyper [place] System Blood 09/25/2023 7:55 PM EST 09/30/2023 10:10 AM EST us Anette Crow MD LAB MICROBIOLOGY - [facility] TITUS ETIENNE Final Result Performing Organization Address City/State/[facility] Co de Phone Number HEALTHCARE LAB [address] [place] [address] documented in this encounter Visit Diagnoses Diagnosis Encounter for general adult medical examination without abnormal findings documented in this encounter Additional Health Concerns Assessment Noted Time A fall risk assessment has been complete d for the patient 09/18/2022 8:55 AM EST documented as of this encounter Care Teams Director Print Relationship Specialty Start Date End Date Pavel Horvath MD [address] [place] [address] PCP - General 01/07/23 documented as of this encounter
--- OUTSIDE RECORDS SUMMARY | 2025-06-28 12:03 | XMS_ITS | Encounter Summary ---
Author Organization [employer] ([place], [place], [place], [place], [place]) Address [address] [place] [address] Care Team Providers Care Market Specialist Name Role Phone Unavailable Primary Care Provider Unavailabl e Encounter Details Date Type Department Care Team (Late st Contact Info) Description 09/19/2019 Transcribed Document [facility] [place] Family Medicine [facility] [place] [address] ProviderHa MD [address] [place] [address] Social History Tobacco Use Types Packs/Day [...] Ha Dempsey MD - 09/19/2019 10:53 AM ASH HANDLER Patient: MERLYN MARKS Age: 29 Years Sex: [...] 1-Time, Stop: 09/17/19 9:30:00 EST, Nurse Collect Electronically signed by Catarino Arroyo Conversion Director Product Management Cerner at 11/19/2022 12:10 PM CDT documented in this encounter Plan of Treatment Not on file documented as of this encounter Visit Diagnoses Not on filedocumented in this encounter
--- OUTSIDE RECORDS SUMMARY | 2025-06-28 12:03 | XMS_ITS | Encounter Summary ---
[facility] Address [address] [place] [address] Care Team Providers Care Upholstery Tech Name Role Phone Yun Wong Primary Care Provider [phone] Reason for Visit * Reason Onset Date Comments Med Refill 05/14/2023 Encounter Details Date Type Department Care Team (Late st Contact Info) Description 05/14/2023 Refill [facility] MATERNAL MEDICINE [address] [facility] [address] [place] [phone] Marcos Brown MD [address] [facility] [address] [place] [address] Social History Tobacco Use Types Packs/Day Years [...] GED or equivalent No 04/16/2023 Preferred Language South African 04/16/2023 PHQ-2 Answer Date Recorded Retired PHQ-9: [...] on filedocumented in this encounter Care Teams Upholstery Tech Relationship Specialty Start Date End Date Yun Wong PA PCP - General Physician Supervisor Harvesting 04/18/23 documented as of this encounter
--- OUTSIDE RECORDS SUMMARY | 2025-06-28 12:03 | XMS_ITS | Encounter Summary ---
Author Organization Healthcare Address [address] [place] [address] Care Team Providers Care Risk Control Analyst Name Role Phone Pavel Horvath MD Primary Care Provider [phone] Encounter Details Date Type Department Care Team (Late st Contact Info) Description 09/30/2023 Lab Requisition [facility] Lab [address] [place] [address] Anette Crow MD [facility] [place] [address] Encounter for general adult medical examination without abnormal findings Social History Tobacco Use Types Packs/Day Years Used Date Smoking Tobacco: Every Day Cigarettes Smokeless Tobacco: Current Comments:currently vaping Alcohol Use Standard Drinks/Week Comments Never 0 (1 standard drink = 0.6 oz pur e alcohol) PHQ-2 Answer Date Recorded Patient Health Questionnaire-2 Score 0 09/18/2022 [place] Depression Scale Answer Date Recorded [place] Depression Scale Total 20 02/23/2022 The thought [...] drink first t janusz in the morning (EYE-BOOM PUMP OPERATOR) to steady your nerves or to [...] n identified using the FDA Approved MALDI TigerTradeyper [place] System Blood 09/25/2023 7:35 PM EST 09/30/2023 10:14 AM EST us Anette Crow MD LAB MICROBIOLOGY - [facility] TITUS ETIENNE Final Result Performing Organization Address City/State[facility] Co de Phone Number [facility]ALTHCARE LAB [address] [place] [address] documented in this encounter Visit Diagnoses Diagnosis Encounter for general adult medical examination without abnormal findings documented in this encounter Additional Health Concerns Assessment Noted Time A fall risk assessment has been complete d for the patient 09/18/2022 8:55 AM EST documented as of this encounter Care Teams Risk Control Analyst Relationship Specialty Start Date End Date Pavel Horvath MD [address] [place] [address] PCP - General 01/07/23 documented as of this encounter
--- OUTSIDE RECORDS SUMMARY | 2025-06-28 12:03 | XMS_ITS | Continuity of Care Document ---
Author Organization [facility] [employer] [facility] Address [address] [place] [address] Assessment No assessment recorded. Plan of Treatment Reminders Order Date Submit Date Provider Last Modified By Organization Details Last Modified Time Details Appointments None recorded. Lab urinalysis , dipstick 2024 025 [email or web address] [facility], [address] [facility], [place], [address], 5 12:35:01 systemic lupus Ab panel, serum or plasma 2024 025 [facility], [address] [place] [address], [id number], 5 12:23:26 CLARK (antinucle ar antibodies ) screen, serum 2024 025 [facility] [address] [place] [address], [id number], 5 12:23:26 rf (rheumatoi d factor), serum 2024 025 [facility], [address] [place] [address], [id number], 5 12:23:25 ccp (cyclic citrullina bailey peptide) iga+igg, serum 2024 025 [facility]), [address] [place] [address], [id number], 12:23:25 Referral orthopedic surgeon referral 2024 025 [facility], [address], [place], [address], 08:20:31 Procedures None recorded. Surgeries None recorded. Imaging None recorded. Medication Orders None recorded. Patient TargetsNo targets recorded. Patient InstructionsNo instructions recorded. Reason for Referral Orthopedic Surgeon Referral for Bilateral carpal tunnel syndrome Referring Physician: Yun Wong, Family Medicine, Encounter Date: 06/24/2025 Results Created Date Observation Date Name Description Value Unit Range Abnormal Flag Note LastModifiedBy Organization Detail LastModifiedTime 06/24/2006/24/2025 urina lysis , dipst ick Leukocytes Negati ve Not Available [address], [address], 06/24/2025 12:16:13 06/24/2006/24/2025 urina lysis , dipst ick Nitrite negati ve Not Available [address], [address], 06/24/2025 12:16:13 06/24/20 25 06/24/2025 urina lysis , dipst ick Urobilinogen 1 Not Available [address], [address], 06/24/2025 12:16:13 06/24/20 25 06/24/2025 urina lysis , dipst ick Protein Negati ve Not Available [address], [address], 06/24/2025 12:16:13 06/24/20 25 06/24/2025 urina lysis , dipst ick pH 7.0 Not Available [address], [place], [address], 06/24/2025 12:16:13 06/24/2006/24/2025 urina lysis , dipst ick Blood Negati ve Not Available [address], [place], [address], 06/24/2025 12:16:13 06/24/2006/24/2025 urina lysis , dipst ick Specific Angela 1.025 Not Available [address], [place], [address], 06/24/2025 12:16:13 06/24/2006/24/2025 urina lysis , dipst ick Ketone Trace Not Available [address], [address], 06/24/2025 12:16:13 06/24/2006/24/2025 urina lysis , dipst ick Bilirubin Negati ve Not Available [address], [place], [address], 06/24/2025 12:16:13 06/24/2006/24/2025 urina lysis , dipst ick Glucose Negati ve Not Available [address], [place], [address], 06/24/2025 12:16:13 06/24/2006/24/2025 urina lysis , dipst ick Appearance Clear Not Available [address], [address], 06/24/2025 12:16:13 06/24/20 25 06/24/2025 urina lysis , dipst ick Color Dark Yellow Not Available [facility] [address], [place], [address], 06/24/2025 12:16:13 Result Notes None recorded. Problems Name Problem SNOMED Code Status Onset Date Resolution Date Notes Provider Name and Address Organization Details Recorded Time Paresthesia of bilateral hands 921608329 Active 2023 SHANNON Alberto [address] [place] [address], [address], [employer] 4 13:35:59 Anti-nuclea r factor detected 340454076 Active 2023 SHANNON Alberto [address] [place] [address], [address], [employer] 5 17:03:36 Pain of multiple joints 14917535 Active 2023 SHANNON Alberto [address] [place] [address], [address] 8, [employer] 4 09:10:51 Bilateral carpal tunnel syndrome 5940611022839 9101 Active 2023 SHANNON Alberto [address] [place] [address], [address], [place] [employer] 5 17:03:26 Neuropathy 850545953 Active 2023 SHANNON Alberto [address] [place] [address], [address] 8, [employer] 4 09:27:05 Migraine 85566967 Active 2023 SHANNON Alberto [address] [place] [address], [address], [employer] 4 09:54:15 Cough 65878449 Active 2024 SHANNON Alberto [address] [place] [address], [address] 8, [place] [employer] 5 11:18:41 Candidiasis of vagina 47565893 Active 2024 SHANNON Alberto [address] [place] [address], [address] 8, [employer] 5 13:36:35 Acute urinary tract infection 795139719 Active 2024 SHANNON Alberto [address] [place] [address], [address] 8, [employer] 5 11:42:34 Viral wart on finger 661641367 Active 2024 Melissa Beckham NP [address] [place] [address], [address] 8, [employer] 5 11:18:02 Left tarsal tunnel syndrome 6475400876483 07 Active 2024 SHANNON Alberto [address] [place] [address], [address], [employer] 5 09:43:10 Tarsal tunnel syndrome 70798541 Active 2024 SHANNON Alberto [address] [place] [address], [address], [employer] 5 09:43:26 Anxiety 50698969 Active 2024 SHANNON Alberto [address] [place] [address], [address] 8, [employer] 5 15:29:42 Low back pain 903621055 Active 2024 SHANNON Alberto [address] [place] [address], [address] 8, [employer] 5 15:08:42 Problem Notes None recorded. Procedures Surgical History Date Name Laterality Status Provider Name and Address Organization Details Recorded Time 11/14/19 25 Cryosurgery Warts/Skin Tags completed SHANNON Alberto [address] [place] [address], [address], [employer] 11/13/2024 16:57:00 10/29/19 25 Cryosurgery Warts/Skin Tags completed Melissa Beckham NP [address] [place] [address], [address], [employer] 10/28/2024 11:20:28 05/05/20 24 Date of Last Pap Smear completed Treatsie 10/30/2024 10:48:09 Appendectomy completed Jaimie BrewDog [facility] [employer]. 06/09/2024 16:32:21 Dilation and Curettage completed [employer]. 06/09/2024 16:32:21 Imaging Results None recorded. Procedure Notes None recorded. Medical Equipment None Reported. Allergies No known drug allergies Medications Name Sig Start Date Stop Date Status Note LastModified by Organization Details LastModified Time verapamil ER (SR) 120 mg tablet,exte nded release TAKE 1 TABLET BY MOUTH EVERY DAY 10/28 completed Not Available Not Available Not Available cyclobenzap rine 10 mg tablet TAKE 1 TABLET BY MOUTH THREE TIMES A DAY NEEDED FOR MUSCLE SPASMS FOR UP TO 3 DAYS 06/09 completed Not Available Not Available Not Available amoxicillin 500 mg capsule 10/28 completed Not Available Not Available Not Available buspirone 5 mg tablet TAKE 1 TABLET BY MOUTH TWICE A DAY 06/24 completed Not Available Not Available Not Available terconazole 0.4 % vaginal cream INSERT 1 APPLICATO R INTO THE VAGINA EVERY NIGHT FOR 7 DAYS. 06/09 completed Not Available Not Available Not Available bupropion HCl SR 150 mg tablet,12 hr sustained-r elease TAKE 1 TABLET BY MOUTH DAILY 06/09 completed Not Available Not Available Not Available fluconazole 150 mg tablet TAKE 1 TABLET BY MOUTH ONCE 06/24 completed Not Available Not Available Not Available benzonatate 200 mg capsule 10/28 completed Not Available Not Available Not Available meloxicam 15 mg tablet TAKE 1 TABLET BY MOUTH EVERY DAY FOR 30 DAYS 06/24 completed Not Available Not Available Not Available metronidazo le 0.75 % (37.5 mg/5 gram) vaginal gel INSERT ONE APPLICATO RFUL INTO VAGINA ONCE NIGHTLY FOR 5 NIGHTS. 06/09 completed Not Available Not Available Not Available sulfasalazi ne 500 mg tablet,rico yed release Take 1 tablet twice a day by oral route as directed for 30 days, for pain. 06/29 completed Not Available Not Available Not Available Pyridium 200 mg tablet Take 1 tablet 3 times a day by oral route for 2 days. 03/28 completed Not Available Not Available Not Available topiramate 25 mg tablet TAKE 1 TABLET BY MOUTH EVERYDAY AT BEDTIME active Not Available Not Available No t Available aspirin 81 mg tablet,rico yed release TAKE 1 TABLET BY MOUTH EVERY DAY 06/09 completed Not Available Not Available Not Available verapamil 120 mg tablet TAKE 1 TABLET BY MOUTH THREE TIMES A DAY active Not Available Not Available No t Available citalopram 20 mg tablet TAKE 1 TABLET BY MOUTH ONCE DAILY 06/09 completed Not Available Not Available Not Available amitriptyli ne 10 mg tablet TAKE 1 TABLET BY MOUTH EVERYDAY AT BEDTIME 06/09 completed Not Available Not Available Not Available diazepam 2 mg tablet TAKE 1 TABLET BY MOUTH TWICE A DAY NEEDED FOR 5 DAYS 06/24 completed Not Available Not Available Not Available phenazopyri dine 100 mg tablet TAKE 1 TABLET BY MOUTH THREE TIMES A DAY FOR 3 DAYS 11/13 completed Not Available Not Available Not Available doxycycline monohydrate 100 mg capsule TAKE 1 CAPSULE BY MOUTH 2 TIMES A DAY FOR 7 DAYS. 06/09 completed Not Available Not Available Not Available progesteron e micronized 200 mg capsule INSERT 1 CAPSULE INTO THE VAGINA EVERY NIGHT AT BEDTIME 06/09 completed Not Available Not Available Not Available hydroxyzine HCl 25 mg tablet TAKE 1 TABLET BY MOUTH EVERY 6 HOURS NEEDED MAY CAUSE DROWSINES S, USE NEEDED FOR ANXIETY 06/09 completed Not Available Not Available Not Available gabapentin 100 mg capsule Take 1 capsule twice a day by oral route as directed for 30 days, for neuropath y. 06/24 completed Not Available Not Available Not Available ibuprofen 600 mg tablet 06/09 completed Not Available Not Available Not Available levofloxaci n 500 mg tablet Take 1 tablet every 24 hours by oral route for 7 days. 04/02 completed Not Available Not Available Not Available bromphenira mine-pseudo ephedrine-D M 2 mg-30 mg-10 mg/5 mL oral syrup Take 10 mL every 4 hours by oral route as directed for 10 days, for cough. 10/28 completed Not Available Not Available Not Available cefdinir 300 mg capsule TAKE 1 CAPSULE BY MOUTH 2 TIMES PER DAY 06/09 completed Not Available Not Available Not Available verapamil ER 120 mg 24 hr capsule,ext ended release Take 1 capsule every day by oral route as directed for 90 days. 10/28 completed Not Available Not Available Not Available azithromyci n 500 mg tablet TAKE 1 TABLET BY MOUTH EVERY DAY 06/09 completed Not Available Not Available Not Available atomoxetine 40 mg capsule TAKE 1 CAPSULE BY MOUTH EVERY DAY 06/09 completed Not Available Not Available Not Available nitrofurant oin monohydrate /macrocryst als 100 mg capsule TAKE 1 CAPSULE BY MOUTH TWICE A DAY WITH MEALS/PHIL D FOR 7 DAYS 02/04 completed Not Available Not Available Not Available desvenlafax ine succinate ER 50 mg tablet,exte nded release 24 hr TAKE 1 TABLET BY MOUTH EVERY DAY FOR 30 DAYS 06/24 completed Not Available Not Available Not Available Mucus Relief ER 1,200 mg tablet, extended release Take 1 tablet twice a day by oral route as directed for 10 days. 10/28 completed Not Available Not Available Not Available Ubrelvy 50 mg tablet TAKE 1 TABLET BY MOUTH ONCE 06/09 completed Not Available Not Available Not Available Nurtec ODT 75 mg disintegrat ing tablet TAKE 1 TABLET BY MOUTH ONCE NEEDED FOR MIGRAINE HEADACHE 06/09 completed Not Available Not Available Not Available Vitals Date Recorded Body height Body mass index (BMI) Body weight Oxygen saturation Heart rate Body temperature Systolic And Diastolic Provider Name and Address Organization Details Last Updated DateTime 5 165.1 cm 22.1 kg/m2 58314.3 5 g 99 % 80 /min 98.3 [degF] 110/78 mm[Hg] Jaimie Andrews [employer] 12:00:44 Social History Question Answer Notes LastModified by Organizat ion Details LastModified Time Tobacco Smoking Status Former Smoker Jaimie Andrews [facility] [employer] 06/09/2024 16:32:21 Do You Have An Advance Directive? No Information not available 06/09/2024 Is Your Home Air Conditioned? Yes Information not available 06/09/2024 If You Are , What Was Your Level Of Alcohol Consumption Prior To ? None Information not available 06/09/2024 Do You Wear A Helmet When Biking? No Information not available 06/09/2024 Are You Blind Or Do You Have Difficulty Seeing? No Information not available 06/09/2024 What Is Your Level Of Caffeine Consumption? Occasional Information not available 06/09/2024 Are You A Caregiver? No Information not available 06/24/2025 What Type Of Professor Of Theater Do You Use? None Information not available 06/09/2024 Have You Been To An Area Known To Be High Risk For COVID-19? No Information not available 06/09/2024 Are You Deaf Or Do You Have Serious Difficulty Hearing? No Information not available 06/09/2024 What Type Of Diet Are You Following? REGULAR Information not available 06/09/2024 What Is The Highest Grade Or Level Of School You Have Completed Or The Highest Degree You Have Received? 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 No Information not available 06/09/2024 When Did You Quit Smoking? 1-5yearssincelkatie parr Information not available 06/09/2024 Are There Any Guns Present In Your Home? No Information not available 06/09/2024 Which Of Your Hands Is Dominant? Right Information not available 06/09/2024 Do You Engage In Moderate/heavy Exercise (e.g. Brisk Walk, Jogging, Strength Training, Etc)? No Information not available 06/24/2025 What Is Your Home Situation? Other Information not available 06/09/2024 How Many Times In The Past Year Have You Used An Illegal Drug Or Used A Prescription Medication For Nonmedical Reasons? 0 Information not available 06/24/2025 Where Do You Live? SingleLevelHouse Information not available 06/24/2025 Do You Have A Medical Power Of Glove Turner And Former? No Information not available 06/09/2024 What Was The Date Of Your Most Recent Tobacco Screening? 06/24/2025 Information not available 06/24/2025 Are There Any Occupational Health Risks Where You Work? No Information not available 06/09/2024 What Is Your Current Pack Years? 10packyears Information not available 06/09/2024 Do You Have Any Pets? No Information not available 06/09/2024 Do You Use Protection During Sex? Always Information not available 06/09/2024 What Is Your Relationship Status? Single Information not available 06/09/2024 Have You Repeated Any Grades? No Information not available 06/09/2024 Do You Wear A Seatbelt When Driving Or As A Passenger? Yes Information not available 06/24/2025 Do You Use Your Seat Belt Or Car Seat Routinely? Yes Information not available 06/09/2024 Are You Sexually Active? Yes Information not available 06/09/2024 Do You Have Any Siblings? 3 Information not available 06/09/2024 Do You Have Smoke And Carbon Monoxide Detectors In Your Home? Yes Information not available 06/09/2024 At What Age Did You Start Smoking Tobacco? 17 Information not available 06/09/2024 Are You Passively Exposed To Smoke? No Information not available 06/09/2024 Are There Any Smokers In Your House? No Information not available 06/09/2024 How Much Tobacco Do You Smoke? No Information not available 06/09/2024 Do You Participate In Social Media? Yes Information not available 06/09/2024 What Types Of Sporting Activities Do You Participate In? N/a Information not available 06/09/2024 Do You Use Sunscreen Routinely? No Information not available 06/09/2024 Has Tobacco Cessation Counseling Been Provided? Yes Information not available 06/09/2024 On What Date Was Tobacco Cessation Counseling Provided? 06/24/2025 Information not available 06/24/2025 How Many Years Have You Smoked Tobacco? 16 Information not available 06/09/2024 Have You Recently Traveled Abroad? No Information not available 06/09/2024 Do You Have Difficulty Walking Or Climbing Stairs? No Information not available 06/09/2024 Are You Currently In School? No Information not available 06/09/2024 What Contraceptive Method Was Reported At Start Of This Visit? Male Condom Information not available 06/24/2025 Do You Feel Safe In Your Home? Yes Information not available 06/24/2025 Do You Have Any Dietary Restrictions? No Information not available 06/09/2024 Sex: Unknown Functional Status Question Answer Note LastModified by Organizat ion Details LastModified Time Do you or have you ever used smokeless tobacco? Never used smokeless tobacco Information not available 06/09/2024 Are you currently employed? Yes Information not available 06/09/2024 Do you have transportation difficulties? No Information not available 06/09/2024 Are you able to care for yourself independently? Yes Information not available 06/09/2024 Do you have difficulty dressing, bathing, grooming, or toileting? No Information not available 06/09/2024 Do you or have you ever used e-cigarettes or vape? Current user of electronic cigarettes Information not available 06/09/2024 What is your exercise level? None Information not available 06/09/2024 Do you use any illicit or recreational drugs? No Information not available 06/09/2024 Do you feel safe in your relationship? Yes Information not available 06/24/2025 Do you or have you ever used any other forms of tobacco or nicotine? Yes Information not available 06/09/2024 What is your level of alcohol consumption? None Information not available 06/09/2024 Are you able to walk independently without assistance or assistive devices? YESWOREST Information not available 06/09/2024 Do you have difficulty doing errands alone? No Information not available 06/09/2024 Mental Status Question Answer Note LastModified by Organizat ion Details LastModified Time Do you feel stressed (tense, restless, nervous, or anxious, or unable to sleep at night)? [id number] Information not available 06/09/2024 Do you have difficulty concentrating, remembering or making decisions? No Information no t available 06/09/2024 Are you or have you been involved with bullying? No Information not available 06/09/2024 Family History Relationship Description Onset Age of this Age Resolved Age Notes LastModified by Organization Details LastModified Time Mother Hypertensive disorder Not available 2023 16:31:25 Father Depressive disorder Not available 2023 16:32:18 Medical History Condition Response Coronary Artery Disease N Gout N Other N Blood Diseases N Kidney Stones N Hyperthyroidism N Blood Transfusion N Breast Cancer N Emergency room visit since last appointm ent. N Hypothyroidism N Lung Disease N Dermatologic Disorders N COPD N Depression Y Developmental or Behavioral Disorders N Defects or Inherited Disease N Breast Problem N Difficulty Swallowing N Anesthesia Complications N History of STI N Meniere's disease N Anxiety Disorder Y Muscle, Joint, or Bone Problems N Autoimmune disease N Vision or Eye Problems N Arthritis N Polyps N Infertility N Mental Disorder N Congenital Anomalies N Acid Reflux (GERD) N Cancer N Stroke N Neurologic/Epilepsy N Endometriosis N Bladder or Kidney Problems N High Cholesterol N Liver Disease N Psychiatric/Mental Health Condition N Organ Transplant N Fibromyalgia N Dialysis N Schizophrenia N Headaches N Kidney Disease N Allergies/Hayfever N Heart Problems N Ear or Hearing Problems N Hospitalizations N Learning Disorder N Artificial Joints N Thyroid Problems N GI Problems N Acne N ADD/ADHD Y Eating Disorder N Anemia N Constipation N Mental Illness N Ovarian Cancer N Diabetes N Bedwetting N Hepatitis/Liver Disease N Tuberculosis N Eczema N Diverticulitis N Abuse/Domestic Violence N Asthma N Trauma/Violence N Substance Abuse N Reflux/GERD N Depression/ depression N Hepatitis N Heart Disease N Pulmonary Embolism N Tourette Syndrome N Pre-Eclampsia N Hypertension N Chronic Ear Infections N Osteoporosis N Chicken Pox N Autism Spectrum Disorder (ASD) N Thrombophilias N Gynecological History Statement/Question Response Abnormal Pap N Flow Moderate Date of LMP 06/07/2025 HPV Vaccine N Duration of Flow (days) 5 Age at Menarche 15 Most Recent Mammogram Age at First Child 24 Frequency of Cycle (Q days) 28 Menses Monthly Y Date of Last Pap Smear 05/05/2024 LMP Definite Obstetrics History GPAL:G 8 P 2 1 5 3 Type Value Full Term 2 Spontaneous 5 Premature 1 Living 3 Total 8 Immunizations Vaccine Type Date Status Note Provider Nam e and Address Organization Details Recorded Time Tdap 3 completed Drew Lee null, [employer] 10/28/2024 10:43:48 MMR 6 completed Drew Lee null, [employer] 10/28/2024 10:43:47 COVID-19, mRNA, LNP-S, PF, 30 mcg/0.3 mL dose 1 completed Drew [place] null, [employer] 10/28/2024 10:43:47 COVID-19, mRNA, LNP-S, PF, 30 mcg/0.3 mL dose 1 completed Drew [place] null, [employer] 10/28/2024 10:43:47 COVID-19, mRNA, LNP-S, PF, 30 mcg/0.3 mL dose 1 completed Drew [place] null, [employer] 10/28/2024 10:43:48 OPV, trivalent 6 completed Drew [place] null, [employer] 10/28/2024 10:43:48 DTP-Hib 6 completed Drew Lee null, [employer] 10/28/2024 10:43:48 Td (adult), 2 Lf tetanus toxoid, preservative free, adsorbed 3 completed Drew [place] null, [employer] 10/28/2024 10:43:48 Hep B, adolescent or pediatric 3 completed Drew [place] null, [employer] 10/28/2024 10:43:48 Hep B, adolescent or pediatric 3 completed Drew Lee null, [employer] 10/28/2024 10:43:48 Past Encounters Encounter ID Performer Location Encounter Start Date Encounter Closed Date Diagnosis/Indication Diagnosis SNOMED-CT Code Diagnosis ICD10 Code Diagnosis IMO Codes Diagnosis Note [id number] SHANNON Alberto [facility] [address] [place] [address] 06/24/2025 11:37:23 06/24/2025 12:32:59 Urine looks dark 65589893 R82.998 054088 Pain of mu ltiple joints 98268037 M25.50 02162 Bilateral carpal tunnel syndrome 7968493224 1707647 G56.03 011045 Reviewed EMG/NCVWil l get bilateral wrist splintsRef er to ortho for possible injections (Patient also has tarsal tunnel and sees podiatry tomorrow) Anti-nucle ar factor detected 999485857 R76.89 [id number] Recheck labs Health Concerns Section Related Observation LastModified by Organization Detai ls LastModified Time None Recorded Concern Status LastModified by Organization Details LastModified Time None Recorded Payers Encounter Date Sequence Insurance Name Policy Number Policy Bryant Covered Member ID Bryant Member ID Guarantor Name 06/24/2025 1 [facility] (MEDICAID H[facility]) Areli Feeback [id number] [facility] Feeback Notes Date Note Type Note Provider Name and Address Organization Details Recorded Time 06/24/2025 text/html ROS as noted in the HPI Patient complains of pain, numbness in bilateral hands. States it is always worse in the winter. 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 Had EMG/NCV last year but did not keep follow up with ortho. Not sure what happened. Had positive CLARK. States aunt does have lupus. SHANNON Alberto [address] [place] [address], [place], [address], [facility] [employer] 06/24/2025 17:05:07 OBGyn Episode No OBEpisode recorded.
--- OUTSIDE RECORDS SUMMARY | 2025-06-28 12:03 | XMS_ITS | Encounter Summary ---
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 [facility] Authorization Entered On: 09/18/2019 12:48 EST Performed On: 09/18/2019 12:47 EST by Erica Mckeon Rn-Utilization Review Primary Insurance Authorization Authorization and Policy Numbers : Insurance 1 [facility] Policy Number: [id number] Authorization Number: Insurance Primary Name : [facility] Policy Number: [id number] Authorization Status-Primary : Awaiting callback Reference Number-Primary : [id number] Authorization Number-Primary : [id number] Number of Days Authorized-Primary : 2 Day(s) [...] Mckeon Rn-Utilization Review - 09/18/2019 12:47 EST documented in this encounter Plan of Treatment Not on file documented as of this encounter Visit Diagnoses Not on filedocumented in this encounter
--- OUTSIDE RECORDS SUMMARY | 2025-06-28 12:03 | XMS_ITS | Clinical Summary ---
Author Organization [facility] Address [address] [place] [address] Care Team Providers Care Nickel Plant Operator Name Role Phone Pavel Horvath MD Primary Care Provider + [phone] Allergies Active Allergy Reactions Criticality Noted Date [...] (01/22/2022): Added automatically from request for surgery [id number] Second trimester 01/18/2022 0 01/23/2022 Social History Tobacco Use Types Packs/Day Years Used Date Smoking Tobacco: Every Day Cigarettes Smokeless Tobacco: Current Tobacco Cessation:Ready to Q uit: Not Asked; Counseling Given: Not Answered Comments:currently vaping Alcohol Use Standard Drinks/Week Comments Never 0 (1 standard drink = 0.6 oz pur e alcohol) PHQ-2 Answer Date Recorded Patient Health Questionnaire-2 Score 0 09/18/2022 Stevenson Depression Scale Answer Date Recorded Stevenson Depression Scale Total 20 02/23/2022 The thought [...] drink first t janusz in the morning ([employer]OR) to steady your nerves or to get [...] [facility]-HIV Screening 1992 [facility]-Hepatitis C Screening 1992 [facility]-/Child/Adol SDOH Screenings 1992 [facility]-IPV Vaccines (2 of 3 - 4-dose series) 04/14/1996 03/17/1996 [facility]-Hepatitis B Vaccines (3 of 3 - 3-dose series) 07/09/2003 05/14/2003, 11/13/2002 [facility]-Varicella Vaccines (1 of 2 - 13+ 2-dose series) 01/07/2005 [facility]- SDOH Screenings 01/07/2010 [facility]-Adult SDOH Screenings 01/07/2010 HPV Vaccines (1 - 3-dose SCDM series) 01/07/2019 [facility]-Depression Screening 09/18/2023 023, 02/23/2022 [facility]-Pap Smear 02/23/2025 02/23/2022 [id number]-70 Vaccine (4 - season) 2025 05/17/2021, 11/15/2020, [...] 11:34 AM EDT) Case Report Cytology Case: [id number] Authorizing Provider: Kathy Dover MD Collected: 02/23/2022 1134 Ordering Location: Medical Office Building Received: 02/23/2022 1134 Obstetrics and Gynecology First Screen: Andres So Specimen: ThinPrep Pap Test, Liquid-Based Cervical/Vaginal, CERVICAL/VAGINAL 03/09/2022 11:12 AM EDT [facility] Interpretation NEGATIVE FOR INTRAEPITHELIAL LESION OR MALIGNANCY 03/09/2022 11:12 AM EDT [facility] at 1112 EDT Specimen Adequacy Satisfactory for evaluation; endocervical/breen sformation zone component present. Slide imaged by the ThinPrep Imaging system and selected 22 gonzalez reviewed then full manual screening. 03/09/2022 11:12 AM EDT [facility] Cervical cytology is a screening [...] results is suggested (please call Microbiology at [phone] for results). 03/09/2022 11:12 AM EDT [facility] Menstrual Status Post- 022 11:12 AM EDT [facility] Contraceptive History Not Applicable 03/09/2022 11:12 AM EDT [facility] Screening Type Routine Screen 2021 11:12 AM EDT [facility] High Risk? Yes 03/09/2022 11:12 AM EDT [facility] HPV Testing Requested? Request HPV [...] CYTOLOGY ORDERABLES Final Result Performing Organization Address City/State/[facility] Co de Phone Number [facility] [address] [place] [phone] from Last 3 Months or Most Recently Relevant to Health Maintenance Insurance [facility] MEDICAID Advance Directives * Full Code (Latest Code Status on File) Date Activated Date Inactivated Comments 01/21/2022 3:10 PM 01/23/2022 6:18 PM Question Answer Comments Patient has decision-making capacity? Yes * Full Code Date Activated Date Inactivated Comments 01/18/2022 9:41 PM 01/20/2022 9:32 PM Question Answer Comments Patient has decision-making capacity? Yes Care Teams Nickel Plant Operator Relationship Specialty Start Date End Date Pavel Horvath MD [address] [place] [phone] PCP - General 01/07/23
[2025-06-28 13:43] LABS: Hepatitis C Ab Qual. W/ RFX NEGATIVE (Negative)
[2025-06-29 10:27] LABS: RPR W/RFX Titers Nonreactive (Nonreactive)
== END 2025-06-28 23:59 | disposition home or self-care (01) ==
LOC: LAB 11:53
PROVIDERS: PCP Physician Assistant; Visit Provider Obstetrics & Gynecology
DX: L29.2 Pruritus vulvae (principal); N89.8 Other specified noninflammatory disorders of vagina; R10.20 Pelvic and perineal pain unspecified side
CPT/HCPCS: 36415; 86592; 86803; 87389